=== PATIENT | male | born 1960 | race Caucasian/White ===

== ENCOUNTER 2017-01-07 10:35 | Inpatient (IN) | payer BC ==
[~2017-01-07 10:35] MED LIST: Lactated Ringers 1,000 ML IV SCH; Lidocaine 1%/Sod Bicarbonate in NS 8.4% 1 ML Syringe IV PRN; Sodium Chloride 0.9% 10 ML Syringe FLUSH PRN
[2017-01-07] MEDS ORDERED: fentaNYL 100 MCG/2 ML SDV ONE (11:06)
[2017-01-07] MEDS ORDERED: Propofol 200 MG/20 ML SDV ONE ×3 (11:06→14:22)
[2017-01-07] MEDS ORDERED: Midazolam 1 MG/ML 2 ML SDV ONE (11:06)
--- NOTE | 2017-01-07 11:56 | PCM.PREANE ---
Preanesthetic Assessment - Anesthesia/Transfusion/Family Hx Anesthesia History: Prior Anesthesia Without Reaction Family History of Anesthesia Reaction: No Transfusion History: No Prior Transfusion(s) Intubation History: Unknown - Review of Systems General: No Symptoms Pulmonary: No Symptoms Cardiovascular: No Symptoms Gastrointestinal: No symptoms Neurological: No Symptoms Other: Reports: None - Physical Assessment NPO Status Date: 01/07/17 NPO Status Time: 01:30 O2 Sat by Pulse Oximetry: 96 Respiratory Rate: 16 Vital Signs: Last Vital Signs Temp 36.8 C 01/07/17 11:05 Pulse 70 01/07/17 11:05 Resp 16 01/07/17 11:05 BP 131/77 01/07/17 11:05 Pulse Ox 96 01/07/17 11:05 Height: 1.73 m Weight: 72.121 kg ASA Class: 2 Mental Status: Alert & Oriented x3 Airway Class: Mallampati = 1 Dentition: Reports: Edentulous Thyro-Mental Finger Breadths: 3 Mouth Opening Finger Breadths: 5 ROM/Head Extension: Full Lungs: Clear to auscultation, Normal respiratory effort Cardiovascular: Regular Rate, Regular Rhythm - Lab Values: Laboratory Last Values MRSA (PCR) Negative 12/26/16 16:48 labs reviewed - Imaging/EKG Impressions: reviewed echo - EF: 55% and stress test negative - Allergies Allergies/Adverse Reactions: Allergies Allergy/AdvReac Type Severity Reaction Status Date / Time No Known Allergies Allergy Verified 01/07/17 11:44 - Blood Blood Available: No - Anesthesia Plan Pre-Op Medication Ordered: None - Acknowledgements Anesthesia Type Planned: Spinal Pt an Appropriate Candidate for the Planned Anesthesia: Yes Alternatives and Risks of Anesthesia Discussed w Pt/Guardian: Yes Pt/Guardian Understands and Agrees with Anesthesia Plan: Yes PreAnesthesia Questionnaire HEENT History: Reports: Other (see below) Other HEENT History: jaw surgery Other Genitourinary History: hematuria Psychiatric History: Reports: None (ETOH abuse), Other (see below) Other Psychiatric History: history of alcohol abuse - Past Surgical History Other Head Surgeries/Procedures: left jaw surgery Musculoskeletal Surgical History: Reports: Other (see below) (Left knee surgery) Other Musculoskeletal Surgeries/Procedures:: left knee surgery - SUBSTANCE USE Smoking Status *Q: Current Every Day Smoker (1/2 pack a day) Tobacco Use Within Last Twelve Months: Cigarettes Recreational Drug Use History: No Other Recreational Drug Type: quit drinking ETOH 4.5 years ago - HOME MEDS Home Medications: Home Meds Acetaminophen [Tylenol] 650 mg PO Q4HR PRN 10/03/16 [History] Hydrocodone/Acetaminophen [Ethel 5-325 Tablet] 1 - 2 each PO Q6H #40 tablet [Rx] Aspirin 325 mg PO BID #90 tablet 10/05/16 [Rx] Ibuprofen [Advil] 600 mg PO Q6H PRN 01/07/17 [History] - CURRENT (IN HOUSE) MEDS Current Meds: Current Medications Lactated Ringer's (Ringers, Lactated) 1,000 mls @ 125 mls/hr IV ASDIRECTED BR[facility]GER Lidocaine/Sodium Bicarbonate (Buffered Lidocaine 1% In Ns 8.4%) 0.25 ml IV ONETIME PRN PRN Reason: Prior to IV Start Stop: 01/07/17 18:00 Sodium Chloride (Saline Flush) 10 ml FLUSH ASDIRECTED PRN PRN Reason: Keep Vein Open Discontinued Medications Bupivacaine HCl (Marcaine 0.25%) Confirm Administered Dose 30 ml .ROUTE .STK- MED ONE Stop: 01/07/17 11:32 Cefazolin Sodium (Ancef) Confirm Administered Dose 2 gm .ROUTE .STK-MED ONE Stop: 01/07/17 11:32 Morphine Sulfate 8 mg/Epinephrine HCl 0.3 mg/Cefuroxime Sodium 750 mg/Ketorolac Tromethamine 30 mg/Sodium Chloride 27.9 ml 0 mg .XX ONETIME ONE Stop: 01/07/17 09:39 Fentanyl (Sublimaze) Confirm Administered Dose 100 mcg .ROUTE .STK-MED ONE Stop: 01/07/17 11:07 Iodine (Iodine 2% Mild Tincture) Confirm Administered Dose 30 ml .ROUTE .STK- MED ONE Stop: 01/07/17 11:32 Midazolam HCl (Versed 1 Mg/Ml) Confirm Administered Dose 2 mg .ROUTE .STK-MED ONE Stop: 01/07/17 11:07 Propofol (Diprivan 20 Ml) Confirm Administered Dose 600 mg .ROUTE .STK-MED ONE Stop: 01/07/17 11:07 Tranexamic Acid (Cyklokapron) Confirm Administered Dose 1,000 mg .ROUTE .STK- MED ONE Stop: 01/07/17 11:32 Preanesthetic Assessment - ANESTHESIA/TRANSFUSION/FAMILY HX Anesthesia/Transfusion History: No Prior Transfusion(s), Prior Anesthesia Family History of Anesthesia Reaction: No Intubation History: Unknown - PHYSICAL ASSESSMENT O2 Sat by Pulse Oximetry: 96 RR: 16 Vital Signs: Last Vital Signs Temp 36.8 C 01/07/17 11:05 Pulse 70 01/07/17 11:05 Resp 16 01/07/17 11:05 BP 131/77 01/07/17 11:05 Pulse Ox 96 01/07/17 11:05 Height: 1.73 m Weight: 72.121 kg NPO Status Date: 01/07/17 NPO Status Time: 01:30 - LAB Values: Laboratory Last Values MRSA (PCR) Negative 12/26/16 16:48 - ALLERGIES Allergies/Adverse Reactions: Allergies Allergy/AdvReac Type Severity Reaction Status Date / Time No Known Allergies Allergy Verified 01/07/17 11:44
[2017-01-07] MEDS ORDERED: Morphine PF 10 MG/10 ML SDV ONE (12:24)
[2017-01-07] MEDS ORDERED: fentaNYL 100 MCG/2 ML SDV IVPUSH PRN (13:10)
[2017-01-07] MEDS ORDERED: Ondansetron 4 MG/2 ML SDV IVPUSH PRN ×2 (13:10→15:14)
[2017-01-07] MEDS ORDERED: diphenhydrAMINE 50 MG/ML SDV IVPUSH PRN (13:10)
[2017-01-07] MEDS ORDERED: ePHEDrine/Normal Saline 25 MG/5 ML Syringe ONE ×2 (13:14→13:58)
[2017-01-07] MEDS ORDERED: Ondansetron 4 MG/2 ML SDV ONE (13:19)
[2017-01-07] MEDS: Iodine/Sodium Iodide 2% Tincture 30 ML Bottle ONE ×2 (13:33→14:16)
[2017-01-07] MEDS: Morphine 8 MG, EPINEPHrine 0.3 MG, Cefuroxime 750 MG, Ketorolac 30 MG, Sodium Chloride ... ONE ×15 (13:34→17:44)
[2017-01-07] MEDS: ceFAZolin 1 GM Vial ONE ×2 (13:34→14:21)
[2017-01-07] MEDS: Bupivacaine 0.25% 30 ML SDV ONE ×2 (13:35→14:27)
[2017-01-07] MEDS ORDERED: Meperidine PF 50 MG/ML Syringe IVPUSH PRN (14:15)
[2017-01-07] MEDS ORDERED: Magnesium Hydroxide 400 MG/5 ML Susp 30 ML Cup PO PRN (15:14)
[2017-01-07] MEDS ORDERED: Sennosides 8.6 MG Tab PO PRN (15:14)
[2017-01-07] MEDS ORDERED: Bisacodyl 5 MG Tab PO PRN (15:14)
--- NOTE | 2017-01-07 15:17 | PCM.POSTAN ---
POST ANESTHESIA ASSESSMENT - MENTAL STATUS Mental Status: alert - VITAL SIGNS Pulse Rate: 91 SaO2: 94 Resp Rate: 17 Blood Pressure: 119/79 Temperature: 36.4 C - RESPIRATORY Respiratory Status: respiratory rate WNL, airway patent, O2 saturation stable - CARDIOVASCULAR CV Status: pulse rate WNL, blood pressure stable - GASTROINTESTINAL GI Status: no symptoms - PAIN Pain Score: 0 - POST OP HYDRATION Hydration Status: adequate & stable
--- NOTE | 2017-01-07 15:44 | CR ---
Left knee: AP and lateral views of the left knee were obtained. Comparison: No previous knee exam. Knee prosthesis is seen. Components are aligned. Underlying bony structures are intact. Soft tissue air is noted from the surgical procedure. Impression: 1. Satisfactory radiographic appearance of recently placed left knee prosthesis. Diagnostic code #2
[2017-01-07] MEDS ORDERED: Naloxone 0.4 MG/ML SDV IVPUSH PRN (16:15)
--- NOTE | 2017-01-07 16:39 | PCM.CONS ---
H&P History of Present Illness - General Date of Service: 01/07/17 Admit Problem/Dx: Admission Diagnosis/Problem Admission Diagnosis/Problem Osteoarthritis of knee Source of Information: Patient, Family, Old records, Provider, RN notes reviewed History Limitations: Reports: Physical impairment - History of Present Illness Initial Comments - Free Text/Narative: This is a 56-year-old, white male, with past medical history of Nicotine Dependence and Hx/o ETOH Abuse who underwent left total knee arthroplasty post operative day zero. Patient is doing relatively well. Currently, his pain is controlled. He denies any acute issues. Hospitalist was consulted for postoperative care. Left Knee Pain Score (Numeric/FACES): 10 - Related Data Allergies/Adverse Reactions: Allergies Allergy/AdvReac Type Severity Reaction Status Date / Time No Known Allergies Allergy Verified 01/07/17 11:44 Home Medications: Home Meds Acetaminophen [Tylenol] 650 mg PO Q4HR PRN 10/03/16 [History] Hydrocodone/Acetaminophen [Centrah[place] 5-325 Tablet] 1 - 2 each PO Q6H #40 tablet [Rx] Aspirin 325 mg PO BID #90 tablet 10/05/16 [Rx] Ibuprofen [Advil] 600 mg PO Q6H PRN 01/07/17 [History] Past Medical History HEENT History: Reports: Other (see below) Other HEENT History: jaw surgery Genitourinary History: Reports: Other (see below) Other Genitourinary History: hematuria Psychiatric History: Reports: None (ETOH abuse), Other (see below) Other Psychiatric History: history of alcohol abuse - Past Surgical History Musculoskeletal Surgical History: Reports: Other (see below) (Left knee surgery) Other Musculoskeletal Surgeries/Procedures:: left knee surgery Social & Family History - Family History Family Medical History: Noncontributory - Tobacco Use Smoking Status *Q: Current Every Day Smoker (1/2 pack a day) Years of Tobacco use: 40 Packs/Tins Daily: 1 - Caffeine Use Caffeine Use: Reports: None - Recreational Drug Use Recreational Drug Use: No Drug Use in Last 12 Months: No H&P Review of Systems - Review of Systems: Review Of Systems: See Below General: Denies: fever, chills, malaise, weakness, fatigue HEENT: Reports: no symptoms Pulmonary: Denies: Shortness of Breath, Cough Cardiovascular: Denies: chest pain, palpitations, dyspnea on exertion Gastrointestinal: Denies: Abdominal pain, Nausea, Vomiting Genitourinary: Reports: no symptoms Musculoskeletal: Reports: no symptoms Skin: Denies: cyanosis, pallor, pruritis, rash, erythema Psychiatric: Denies: depression, anxiety, hallucinations Neurological: Reports: Difficulty Walking, Gait Disturbance. Denies: Confusion Hematologic/Lymphatic: Reports: no symptoms Immunologic: Reports: no symptoms Exam - Exam Exam: See Below - Vital Signs Vital Signs: Last Vital Signs Temp 36.4 C 01/07/17 15:49 Pulse 91 01/07/17 15:17 Resp 16 01/07/17 15:49 BP 107/69 01/07/17 15:49 Pulse Ox 94 L 01/07/17 15:49 Weight: 72.121 kg - Exam General: alert, oriented, cooperative. No: mild distress HEENT: Conjunctiva clear, EACs clear, EOMI, Hearing intact, Mucosa moist & pink , Nares patent, Normal nasal septum, Posterior pharynx clear, Pupils equal, Pupils reactive, TMs clear Neck: supple, trachea midline, 2+ carotid pulse wo bruit, full range of motion, JVD Lungs: Clear to auscultation, Normal respiratory effort Cardiovascular: regular rate, regular rhythm Abdomen: normal bowel sounds, soft. No: organomegaly (Male) Exam: Other (indwelling tierney catheter) Rectal (Males) Exam: Deferred Back Exam: normal inspection, decreased range of motion Extremities: normal inspection, normal pulses. No: clubbing, cyanosis, calf tenderness, edema Peripheral Pulses: 2+: posterior tibial (L), posterior tibial (R), dorsalis pedis (L), dorsalis pedis (R) Skin: warm, dry, intact Neuro Extensive - Mental Status: oriented x3, normal cognition, memory intact Neuro Extensive - Motor, Sensory, Reflexes: CN II-XII intact (exam limited but current status but fairly intact), abnormal gait Psychiatric: alert, normal affect, normal mood Consult PN Assessment/Plan POD#: 0 Procedures: Procedures ASSAY OF FERRITIN (12/12/16) ASSAY OF PREALBUMIN (12/12/16) ASSAY OF SERUM ALBUMIN (12/12/16) CARDIOVASCULAR STRESS TEST (09/10/16) CHEST X-RAY 2VW FRONTAL&LATL (08/21/16) COMPLETE CBC AUTOMATED (12/12/16) COMPREHEN METABOLIC PANEL (08/21/16) CT THORAX W/DYE (10/11/15) FLUOROSCOPE EXAMINATION (10/04/16) HT MUSCLE IMAGE SPECT MULT (09/10/16) METABOLIC PANEL TOTAL CA (12/12/16) MR-STAPH DNA AMP PROBE (10/04/16) PROTHROMBIN TIME (12/12/16) REMOVAL OF SUPPORT IMPLANT (10/04/16) ROUTINE VENIPUNCTURE (08/21/16) THROMBOPLASTIN TIME PARTIAL (12/12/16) TTE W/DOPPLER COMPLETE (09/10/16) URINALYSIS AUTO W/O SCOPE (08/21/16) URINALYSIS AUTO W/SCOPE (09/19/16) VITAMIN D 25 HYDROXY (12/12/16) Problem List Initiated/Reviewed/Updated: Yes Plan: Assessment: Acute: Post-Operative Care State - Stable - Continue to monitor for hemodynamic instability S/p Left Total Knee Arthroplasty - Stable - DVT and Pain Management as per primary team Hx/o Chronic OA - Pain Management as per primary team Chronic: Active Smoker Hx/o ETOH Abuse Plan: He is clinically stable Routine AM labs Continue home meds Offered Nicotine Patch-refused PT/OT consult IS q2 awake Thank you for the opportunity to participate in the management of this patient. Requesting Provider: Dr. May Date Consult Requested: 01/07/17 Reason for Consult: Post-Operative Care Patient History Reviewed: Yes Admission H&P Reviewed: Yes Consult Result/Summary: Stable
[2017-01-07] MEDS: ceFAZolin 2 GM in Premix Bag 1 BAG IV SCH (20:12)
[2017-01-07] MEDS: Famotidine 20 MG Tab PO SCH (20:14)
[2017-01-07] MEDS: Docusate Sodium 100 MG Cap PO SCH (20:14)
[2017-01-08] MEDS: Acetaminophen/oxyCODONE 325-5 MG Tab PO PRN ×4 (00:09→13:08)
[2017-01-08] MEDS: Cyclobenzaprine 10 MG Tab PO PRN ×2 (01:55→09:09)
[2017-01-08] MEDS: Morphine 2 MG/ML Syringe IVPUSH PRN ×2 (04:47→07:56)
[2017-01-08] MEDS: ceFAZolin 2 GM in Premix Bag 1 BAG IV SCH ×2 (04:51→11:40)
[2017-01-08] MEDS ORDERED: Multivitamins,Therapeutic Tab PO SCH (07:00)
--- NOTE | 2017-01-08 08:38 | PCM48HPAN ---
Post Anesthesia Note - EVALUATION WITHIN 48HRS OF ANESTHETIC Vital Signs in Normal Range: Yes Patient Participated in Evaluation: Yes Respiratory Function Stable: Yes Airway Patent: Yes Cardiovascular Function Stable: Yes Hydration Status Stable: Yes Pain Control Satisfactory: Yes Nausea and Vomiting Control Satisfactory: Yes Mental Status Recovered: Yes
[2017-01-08] MEDS ORDERED: Nicotine 21 MG/24 Hr Patch TRDERM SCH (09:00)
[2017-01-08] MEDS ORDERED: Rivaroxaban 10 MG Tab PO SCH (09:00)
[2017-01-08] MEDS ORDERED: Tamsulosin 0.4 MG Cap.ER PO SCH (09:00)
[2017-01-08] MEDS: Docusate Sodium 100 MG Cap PO SCH (09:06)
[2017-01-08] MEDS: Famotidine 20 MG Tab PO SCH (09:07)
--- NOTE | 2017-01-08 09:20 | PCM.CONSN ---
- General Info Date of Service: 01/08/17 Admission Dx/Problem (Free Text): Admission Diagnosis/Problem Admission Diagnosis/Problem Osteoarthritis of knee POD #[address] May Pain under fair control; slept "OK" last evening. Unable to void thus far this am. No nausea, SOB, CP, cough or other new concerns this morning. Functional Status: Reports: pain controlled, tolerating diet, ambulating. Denies: urinating (unable to void since dc of tierney this am), new symptoms - Review of Systems General: Reports: No Symptoms HEENT: Reports: no symptoms Pulmonary: Reports: no symptoms Cardiovascular: Reports: No Symptoms Gastrointestinal: Reports: No symptoms Genitourinary: Reports: retention Musculoskeletal: Reports: leg pain (lt knee) Skin: Reports: no symptoms Neurological: Reports: No Symptoms Psychiatric: Reports: no symptoms - Patient Data Vitals - most recent: Last Vital Signs Temp 98.6 F 01/08/17 08:10 Pulse 76 01/08/17 08:10 Resp 20 01/08/17 08:10 BP 100/46 L 01/08/17 08:10 Pulse Ox 92 L 01/08/17 08:10 Weight - most recent: 168 lb I&O - last 24 hours: Intake & Output 01/07/17 01/08/17 01/08/17 22:59 06:59 14:59 Intake Total 270 Output Total 200 700 Balance 70 -700 Lab Results last 24 hrs: Laboratory Results - last 24 hr 01/08/17 01/08/17 Range/Units 04:30 04:30 WBC 11.04 H (4.23-9.07) K/mm3 RBC 3.38 L (4.63-6.08) M/mm3 Hgb 10.1 L (13.7-17.5) gm/L Hct 30.5 L (40.1-51.0) % MCV 90.2 (79.0-92.2) fl MCH 29.9 (25.7-32.2) pg MCHC 33.1 (32.2-35.5) g/dl RDW Std Deviation 42.4 (35.1-43.9) fL Plt Count 228 (163-337) K/mm3 MPV 10.1 (9.4-12.3) fl Neut % (Auto) 70.6 H (34.0-67.9) % Lymph % (Auto) 15.5 L (21.8-53.1) % [place] % (Auto) 10.8 (5.3-12.2) % Eos % (Auto) 2.5 (0.8-7.0) Baso % (Auto) 0.2 (0.1-1.2) % Neut # 7.80 H (1.78-5.38) K/mm3 Lymph # 1.71 (1.32-3.57) K/mm3 [place] # 1.19 H (0.30-0.82) K/mm3 Eos # 0.28 (0.04-0.54) K/mm3 Baso # 0.02 (0.01-0.08) K/mm3 Sodium 134 L (136-145) mEq/L Potassium 4.2 (3.5-5.1) mEq/L Chloride 101 (98-107) mEq/L Carbon Dioxide 26 (21-32) mEq/L Anion Gap 11.2 (5-15) BUN 13 (7-18) mg/dL Creatinine 0.6 L (0.7-1.3) mg/dL Est Cr Clr Drug Dosing 129.83 mL/min Estimated GFR (MDRD) > 60 (>60) mL/min BUN/Creatinine Ratio 21.7 H (14-18) Glucose 95 (74-106) mg/dL Calcium 7.9 L (8.5-10.1) mg/dL Total Bilirubin 0.3 (0.2-1.0) mg/dL AST 15 (15-37) U/L ALT 23 (16-63) U/L Alkaline Phosphatase 68 (46-116) U/L Total Protein 5.7 L (6.4-8.2) g/dl Albumin 3.1 L (3.4-5.0) g/dl Globulin 2.6 gm/dL Albumin/Globulin Ratio 1.2 (1-2) Med Orders - Current: Current Medications Bisacodyl (Dulcolax) 5 mg PO DAILY PRN PRN Reason: Constipation Cyclobenzaprine HCl (Flexeril) 10 mg PO TID PRN PRN Reason: Spasms Last Admin: 01/08/17 09:09 Dose: 10 mg Docusate Sodium (Colace) 100 mg PO BID [facility] Last Admin: 01/08/17 09:06 Dose: 100 mg Famotidine (Pepcid) 20 mg PO Q12H [facility] Last Admin: 01/08/17 09:07 Dose: 20 mg Lactated Ringer's (Ringers, Lactated) 1,000 mls @ 125 mls/hr IV ASDIRECTED [facility] Last Admin: 01/07/17 20:13 Dose: 125 mls/hr Cefazolin Sodium/Dextrose 2 gm (/ Premix) 50 mls @ 100 mls/hr IV Q8H [facility] Stop: 01/08/17 11:59 Last Admin: 01/08/17 04:51 Dose: 100 mls/hr Magnesium Hydroxide (Milk Of Magnesia) 30 ml PO BID PRN PRN Reason: Constipation Meperidine HCl (Demerol) 12.5 mg IVPUSH ONETIME PRN PRN Reason: shivering Stop: 01/08/17 14:16 Miscellaneous Information (Remove Patch) 0 ea TRDERM DAILY [facility] Morphine Sulfate (Morphine) 2 mg IVPUSH Q2H PRN PRN Reason: Breakthrough Pain Last Admin: 01/08/17 07:56 Dose: 2 mg Multivitamins (Thera) 1 each PO WITHBREAKFAST [facility] Last Admin: 01/08/17 06:48 Dose: 1 each Nicotine (Habitrol) 21 mg TRDERM DAILY [facility] Last Admin: 01/08/17 09:06 Dose: 21 mg Ondansetron HCl (Zofran) 4 mg IVPUSH Q6H PRN PRN Reason: Nausea/Vomiting Oxycodone/Acetaminophen (Percocet 325-5 Mg) 1 - 2 tab PO Q4H PRN PRN Reason: Pain Last Admin: 01/08/17 09:10 Dose: 2 tab Rivaroxaban (Xarelto) 10 mg PO DAILY [facility] Last Admin: 01/08/17 09:08 Dose: 10 mg Senna (Senna) 8.6 mg PO BID PRN PRN Reason: Constipation Sodium Chloride (Saline Flush) 10 ml FLUSH ASDIRECTED PRN PRN Reason: Keep Vein Open Tamsulosin [facility]) [facility] Last Admin: 01/08/17 09:09 Dose: 0.4 mg Discontinued Medications Bupivacaine HCl (Marcaine 0.25%) Confirm Administered Dose 30 ml .ROUTE .STK- MED ONE Stop: 01/07/17 11:32 Last Admin: 01/07/17 14:27 Dose: 30 ml Cefazolin Sodium (Ancef) Confirm Administered Dose 2 gm .ROUTE .STK-MED ONE Stop: 01/07/17 11:32 Last Admin: 01/07/17 14:21 Dose: 2 gm Morphine Sulfate 8 mg/Epinephrine HCl 0.3 mg/Cefuroxime Sodium 750 mg/Ketorolac Tromethamine 30 mg/Sodium Chloride 27.9 ml 0 mg .XX ONETIME ONE Stop: 01/07/17 09:39 Last Admin: 01/07/17 17:44 Dose: Not Given Diphenhydramine HCl (Benadryl) 25 mg IVPUSH Q6H PRN PRN Reason: pruritis Stop: 01/07/17 18:00 Ephedrine Sulfate (Ephedrine In Ns) Confirm Administered Dose 25 mg .ROUTE .STK- MED ONE Stop: 01/07/17 13:15 Ephedrine Sulfate (Ephedrine In Ns) Confirm Administered Dose 25 mg .ROUTE .STK- MED ONE Stop: 01/07/17 13:59 Fentanyl (Sublimaze) Confirm Administered Dose 100 mcg .ROUTE .STK-MED ONE Stop: 01/07/17 11:07 Fentanyl (Sublimaze) 50 mcg IVPUSH Q5M PRN PRN Reason: Pain Stop: 01/07/17 18:00 Iodine (Iodine 2% Mild Tincture) Confirm Administered Dose 30 ml .ROUTE .STK- MED ONE Stop: 01/07/17 11:32 Last Admin: 01/07/17 14:16 Dose: 18 ml Lidocaine/Sodium Bicarbonate (Buffered Lidocaine 1% In Ns 8.4%) 0.25 ml IV ONETIME PRN PRN Reason: Prior to IV Start Stop: 01/07/17 18:00 Midazolam HCl (Versed 1 Mg/Ml) Confirm Administered Dose 2 mg .ROUTE .STK-MED ONE Stop: 01/07/17 11:07 Morphine Sulfate (Duramorph Pf) Confirm Administered Dose 10 mg .ROUTE .STK-MED ONE Stop: 01/07/17 12:25 Naloxone HCl (Narcan) 0.1 mg IVPUSH Q5M PRN PRN Reason: Oversedation Stop: 01/07/17 16:31 Ondansetron HCl (Zofran) Confirm Administered Dose 4 mg .ROUTE .STK-MED ONE Stop: 01/07/17 13:20 Ondansetron HCl (Zofran) 4 mg IVPUSH ONETIME PRN PRN Reason: Nausea/Vomiting Stop: 01/07/17 18:00 Propofol (Diprivan 20 Ml) Confirm Administered Dose 600 mg .ROUTE .STK-MED ONE Stop: 01/07/17 11:07 Propofol (Diprivan 20 Ml) Confirm Administered Dose 200 mg .ROUTE .STK-MED ONE Stop: 01/07/17 14:23 Propofol (Diprivan 20 Ml) Confirm Administered Dose 200 mg .ROUTE .STK-MED ONE Stop: 01/07/17 14:23 Tranexamic Acid (Cyklokapron) Confirm Administered Dose 1,000 mg .ROUTE .STK- MED ONE Stop: 01/07/17 11:32 Last Admin: 01/07/17 14:35 Dose: 1,000 mg - Exam Quality Assessment: DVT prophylaxis General: alert, oriented, cooperative, no acute distress HEENT: Pupils equal, Pupils reactive, EOMI, Mucous membr. moist/pink Neck: supple Lungs: Clear to auscultation, Normal respiratory effort Cardiovascular: Regular Rate, Regular Rhythm, Tachycardia Abdomen: bowel sounds present, no tenderness, no distension (Male) Exam: Deferred Back Exam: normal inspection Extremities: no edema, no calf tenderness, other (ice to lt knee; araceli wrap; SCD' s bilat) Peripheral Pulses: 1+: dorsalis pedis (L), dorsalis pedis (R) Skin: warm, dry Neurological: no new focal deficit Psy/Mental Status: alert, normal affect, normal mood Consult PN Assessment/Plan POD#: 1 Procedures: Procedures ASSAY OF FERRITIN (12/12/16) ASSAY OF PREALBUMIN (12/12/16) ASSAY OF SERUM ALBUMIN (12/12/16) CARDIOVASCULAR STRESS TEST (09/10/16) CHEST X-RAY 2VW FRONTAL&LATL (08/21/16) COMPLETE CBC AUTOMATED (12/12/16) COMPREHEN METABOLIC PANEL (08/21/16) CT THORAX W/DYE (10/11/15) FLUOROSCOPE EXAMINATION (10/04/16) HT MUSCLE IMAGE SPECT MULT (09/10/16) METABOLIC PANEL TOTAL CA (12/12/16) MR-STAPH DNA AMP PROBE (10/04/16) PROTHROMBIN TIME (12/12/16) REMOVAL OF SUPPORT IMPLANT (10/04/16) ROUTINE VENIPUNCTURE (08/21/16) THROMBOPLASTIN TIME PARTIAL (12/12/16) TTE W/DOPPLER COMPLETE (09/10/16) URINALYSIS AUTO W/O SCOPE (08/21/16) URINALYSIS AUTO W/SCOPE (09/19/16) VITAMIN D 25 HYDROXY (12/12/16) (1) S/P total knee arthroplasty SNOMED Code(s): 7205088580380, 776487104, 7838325151744 Code(s): Z96.659 - PRESENCE OF UNSPECIFIED ARTIFICIAL KNEE JOINT Priority: High Current Visit: Yes Qualifiers: Laterality: left Qualified Code(s): Z96.652 - Presence of left artificial knee joint (2) Osteoarthritis SNOMED Code(s): 066448108 Code(s): M19.90 - UNSPECIFIED OSTEOARTHRITIS, UNSPECIFIED SITE Priority: High Current Visit: Yes Qualifiers: Osteoarthritis location: knee Osteoarthritis type: primary Laterality: left Qualified Code(s): M17.12 - Unilateral primary osteoarthritis, left knee (3) Urinary retention SNOMED Code(s): 760270883 Code(s): R33.9 - RETENTION OF URINE, UNSPECIFIED Priority: High Current Visit: Yes (4) Tobacco use disorder SNOMED Code(s): 093296393, 950884953 Code(s): F17.200 - NICOTINE DEPENDENCE, UNSPECIFIED, UNCOMPLICATED Priority : High Current Visit: Yes Problem List Initiated/Reviewed/Updated: Yes My Orders last 24 hours: My Active Orders 01/08/17 09:00 Tamsulosin [Flomax] 0.4 mg PO BIDPC Plan: Assessment/Plan POD #[address] May -Pain managment and DVT prophylax per primary team/Ortho -Doing well -VSS -Labs stable; hgb 10.1 Postoperative urinary retention -Push fluids -Flomax BID -Cont to monitor -Straight cath PRN per bladder scanning protocol- if needed will DC with [facility]ney cath and f/up with PCP within 2-3 days for recheck Chronic conditions: Tobacco use disorder: nicotine patch Hx of alcohol use >5 years ago- no recent use Other: PT/OT CM/SW for assistance with DC planning OK for dc home today from hospitalist standpoint if ok with PT and Ortho--- as above for urinary retention plan Full Code Status
[2017-01-08 12:04] VITALS: BP 132/71
--- NOTE | 2017-01-08 13:09 | PCM.SURGPN ---
- General Info Date of Service: 01/08/17 POD#: 1 Functional Status: Reports: pain controlled, tolerating diet, ambulating, other. Denies: new symptoms - Review of Systems Musculoskeletal: Reports: other (The pt reports his pain has been controlled.) - Patient Data Vitals - most recent: Last Vital Signs Temp 98.2 F 01/08/17 11:36 Pulse 76 01/08/17 11:36 Resp 18 01/08/17 11:36 BP 132/71 01/08/17 11:36 Pulse Ox 95 01/08/17 11:36 Weight - most recent: 168 lb I&O - last 24 hours: Intake & Output 01/07/17 01/08/17 01/08/17 22:59 06:59 14:59 Intake Total 270 780 Output Total 200 700 525 Balance 70 -700 255 Lab Results last 24 hrs: Laboratory Results - last 24 hr 01/08/17 01/08/17 Range/Units 04:30 04:30 WBC 11.04 H (4.23-9.07) K/mm3 RBC 3.38 L (4.63-6.08) M/mm3 Hgb 10.1 L (13.7-17.5) gm/L Hct 30.5 L (40.1-51.0) % MCV 90.2 (79.0-92.2) fl MCH 29.9 (25.7-32.2) pg MCHC 33.1 (32.2-35.5) g/dl RDW Std Deviation 42.4 (35.1-43.9) fL Plt Count 228 (163-337) K/mm3 MPV 10.1 (9.4-12.3) fl Neut % (Auto) 70.6 H (34.0-67.9) % Lymph % (Auto) 15.5 L (21.8-53.1) % [place] % (Auto) 10.8 (5.3-12.2) % Eos % (Auto) 2.5 (0.8-7.0) Baso % (Auto) 0.2 (0.1-1.2) % Neut # 7.80 H (1.78-5.38) K/mm3 Lymph # 1.71 (1.32-3.57) K/mm3 [place] # 1.19 H (0.30-0.82) K/mm3 Eos # 0.28 (0.04-0.54) K/mm3 Baso # 0.02 (0.01-0.08) K/mm3 Sodium 134 L (136-145) mEq/L Potassium 4.2 (3.5-5.1) mEq/L Chloride 101 (98-107) mEq/L Carbon Dioxide 26 (21-32) mEq/L Anion Gap 11.2 (5-15) BUN 13 (7-18) mg/dL Creatinine 0.6 L (0.7-1.3) mg/dL Est Cr Clr Drug Dosing 129.83 mL/min Estimated GFR (MDRD) > 60 (>60) mL/min BUN/Creatinine Ratio 21.7 H (14-18) Glucose 95 (74-106) mg/dL Calcium 7.9 L (8.5-10.1) mg/dL Total Bilirubin 0.3 (0.2-1.0) mg/dL AST 15 (15-37) U/L ALT 23 (16-63) U/L Alkaline Phosphatase 68 (46-116) U/L Total Protein 5.7 L (6.4-8.2) g/dl Albumin 3.1 L (3.4-5.0) g/dl Globulin 2.6 gm/dL Albumin/Globulin Ratio 1.2 (1-2) Med Orders - Current: Current Medications Bisacodyl (Dulcolax) 5 mg PO DAILY PRN PRN Reason: Constipation Cyclobenzaprine HCl (Flexeril) 10 mg PO TID PRN PRN Reason: Spasms Last Admin: 01/08/17 09:09 Dose: 10 mg Docusate Sodium (Colace) 100 mg PO BID [facility] Last Admin: 01/08/17 09:06 Dose: 100 mg Famotidine (Pepcid) 20 mg PO Q12H [facility] Last Admin: 01/08/17 09:07 Dose: 20 mg Lactated Ringer's (Ringers, Lactated) 1,000 mls @ 125 mls/hr IV ASDIRECTED [facility] Last Admin: 01/07/17 20:13 Dose: 125 mls/hr Magnesium Hydroxide (Milk Of Magnesia) 30 ml PO BID PRN PRN Reason: Constipation Miscellaneous Information (Remove Patch) 0 ea TRDERM DAILY [facility] Morphine Sulfate (Morphine) 2 mg IVPUSH Q2H PRN PRN Reason: Breakthrough Pain Last Admin: 01/08/17 07:56 Dose: 2 mg Multivitamins (Thera) [facility] Last Admin: 01/08/17 06:48 Dose: 1 each Nicotine (Habitrol) 21 mg TRDERM DAILY [facility] Last Admin: 01/08/17 09:06 Dose: 21 mg Ondansetron HCl (Zofran) 4 mg IVPUSH Q6H PRN PRN Reason: Nausea/Vomiting Oxycodone/Acetaminophen (Percocet 325-5 Mg) 1 - 2 tab PO Q4H PRN PRN Reason: Pain Last Admin: 01/08/17 09:10 Dose: 2 tab Rivaroxaban (Xarelto) 10 mg PO DAILY [facility] Last Admin: 01/08/17 09:08 Dose: 10 mg Senna (Senna) 8.6 mg PO BID PRN PRN Reason: Constipation Sodium Chloride (Saline Flush) 10 ml FLUSH ASDIRECTED PRN PRN Reason: Keep Vein Open Tamsulosin [facility] (Flomax) [facility] Last Admin: 01/08/17 09:09 Dose: 0.4 mg Discontinued Medications Bupivacaine HCl (Marcaine 0.25%) Confirm Administered Dose 30 ml .ROUTE .STK- MED ONE Stop: 01/07/17 11:32 Last Admin: 01/07/17 14:27 Dose: 30 ml Cefazolin Sodium (Ancef) Confirm Administered Dose 2 gm .ROUTE .STK-MED ONE Stop: 01/07/17 11:32 Last Admin: 01/07/17 14:21 Dose: 2 gm Morphine Sulfate 8 mg/Epinephrine HCl 0.3 mg/Cefuroxime Sodium 750 mg/Ketorolac Tromethamine 30 mg/Sodium Chloride 27.9 ml 0 mg .XX ONETIME ONE Stop: 01/07/17 09:39 Last Admin: 01/07/17 17:44 Dose: Not Given Diphenhydramine HCl (Benadryl) 25 mg IVPUSH Q6H PRN PRN Reason: pruritis Stop: 01/07/17 18:00 Ephedrine Sulfate (Ephedrine In Ns) Confirm Administered Dose 25 mg .ROUTE .STK- MED ONE Stop: 01/07/17 13:15 Ephedrine Sulfate (Ephedrine In Ns) Confirm Administered Dose 25 mg .ROUTE .STK- MED ONE Stop: 01/07/17 13:59 Fentanyl (Sublimaze) Confirm Administered Dose 100 mcg .ROUTE .STK-MED ONE Stop: 01/07/17 11:07 Fentanyl (Sublimaze) 50 mcg IVPUSH Q5M PRN PRN Reason: Pain Stop: 01/07/17 18:00 Cefazolin Sodium/Dextrose 2 gm (/ Premix) 50 mls @ 100 mls/hr IV Q8H [facility] Stop: 01/08/17 11:59 Last Admin: 01/08/17 11:40 Dose: 100 mls/hr Iodine (Iodine 2% Mild Tincture) Confirm Administered Dose 30 ml .ROUTE .STK- MED ONE Stop: 01/07/17 11:32 Last Admin: 01/07/17 14:16 Dose: 18 ml Lidocaine/Sodium Bicarbonate (Buffered Lidocaine 1% In Ns 8.4%) 0.25 ml IV ONETIME PRN PRN Reason: Prior to IV Start Stop: 01/07/17 18:00 Meperidine HCl (Demerol) 12.5 mg IVPUSH ONETIME PRN PRN Reason: shivering Stop: 01/08/17 14:16 Midazolam HCl (Versed 1 Mg/Ml) Confirm Administered Dose 2 mg .ROUTE .STK-MED ONE Stop: 01/07/17 11:07 Morphine Sulfate (Duramorph Pf) Confirm Administered Dose 10 mg .ROUTE .STK-MED ONE Stop: 01/07/17 12:25 Naloxone HCl (Narcan) 0.1 mg IVPUSH Q5M PRN PRN Reason: Oversedation Stop: 01/07/17 16:31 Ondansetron HCl (Zofran) Confirm Administered Dose 4 mg .ROUTE .STK-MED ONE Stop: 01/07/17 13:20 Ondansetron HCl (Zofran) 4 mg IVPUSH ONETIME PRN PRN Reason: Nausea/Vomiting Stop: 01/07/17 18:00 Propofol (Diprivan 20 Ml) Confirm Administered Dose 600 mg .ROUTE .STK-MED ONE Stop: 01/07/17 11:07 Propofol (Diprivan 20 Ml) Confirm Administered Dose 200 mg .ROUTE .STK-MED ONE Stop: 01/07/17 14:23 Propofol (Diprivan 20 Ml) Confirm Administered Dose 200 mg .ROUTE .STK-MED ONE Stop: 01/07/17 14:23 Tranexamic Acid (Cyklokapron) Confirm Administered Dose 1,000 mg .ROUTE .STK- MED ONE Stop: 01/07/17 11:32 Last Admin: 01/07/17 14:35 Dose: 1,000 mg - Exam Wound/Incisions: dressing dry and intact General: alert, cooperative, no acute distress Lungs: Normal respiratory effort Extremities: normal pulses, no calf tenderness, other (Moderate soft tissue swelling left knee. NVS intact. Debbie's negative.) - Problem List Review Problem List Initiated/Reviewed/Updated: Yes - My Orders Last 24 Hours: Active Orders 24 hr Category Date Time Status Patient Status [ADT] Routine ADT 01/07/17 15:14 Active Ambulate [RC] PER UNIT ROUTINE Care 01/07/17 15:14 Active Antiembolic Devices [RC] .Routine Care 01/07/17 15:16 Active Antiembolic Devices [RC] PER UNIT ROUTINE Care 01/07/17 15:16 Active Communication Order [RC] ASDIRECTED Care 01/07/17 13:10 Active May Shower [RC] ASDIRECTED Care 01/07/17 15:14 Active Notify Provider Consults [RC] ASDIRECTED Care 01/07/17 15:18 Active Notify Provider [RC] ASDIRECTED Care 01/07/17 13:10 Active RT Incentive Spirometry [RC] Q1HWA Care 01/07/17 15:15 Active Up to Chair [RC] ASDIRECTED Care 01/07/17 15:14 Active Urinary Catheter Assessment [RC] 04,12,20 Care 01/07/17 13:26 Active VTE/DVT Education [RC] PER UNIT ROUTINE Care 01/07/17 15:16 Active Vital Signs [RC] 00,04,08,12,16,20 Care 01/07/17 15:14 Active Consult to Case Management [CONS] Routine Cons 01/07/17 15:14 Active Consult to Physician [CONS] Routine Cons 01/07/17 15:14 Active OT Evaluation and Treatment [CONS] Routine Cons 01/07/17 15:14 Active PT Evaluation and Treatment [CONS] Routine Cons 01/07/17 15:17 Active Regular Diet [DIET] Diet 01/07/17 Dinner Active Acetaminophen/oxyCODONE [Percocet 325-5 MG] Med 01/07/17 15:14 Active 1 - 2 tab PO Q4H PRN Bisacodyl [Dulcolax] Med 01/07/17 15:14 Active 5 mg PO DAILY PRN Cyclobenzaprine [Flexeril] Med 01/07/17 15:14 Active 10 mg PO TID PRN Docusate Sodium [Colace] Med 01/07/17 21:00 Active 100 mg PO BID Famotidine [Pepcid] Med 01/07/17 21:00 Active 20 mg PO Q12H Magnesium Hydroxide [Milk of Magnesia] Med 01/07/17 15:14 Active 30 ml PO BID PRN Morphine Med 01/07/17 15:14 Active 2 mg IVPUSH Q2H PRN Multivitamins,Therapeutic [Thera] Med 01/08/17 07:00 Active 1 each PO WITHBREAKFAST Nicotine [Habitrol] Med 01/08/17 09:00 Active 21 mg TRDERM DAILY Ondansetron [Zofran] Med 01/07/17 15:14 Active 4 mg IVPUSH Q6H PRN Remove Patch Med 01/09/17 09:00 Active 0 ea TRDERM DAILY Rivaroxaban [Xarelto] Med 01/08/17 09:00 Active 10 mg PO DAILY Sennosides [Senna] Med 01/07/17 15:14 Active 8.6 mg PO BID PRN Tamsulosin [Flomax] Med 01/08/17 09:00 Active 0.4 mg PO BIDPC Antiembolic Hose [OM.PC] Per Unit Routine Oth 01/07/17 15:16 Ordered DVT/VTE Prophylaxis Reflex [OM.PC] Routine Oth 01/07/17 15:14 Ordered Ice Therapy [OM.PC] Per Unit Routine Oth 01/07/17 15:15 Ordered Pulse Oximetry Continuous Monitoring [OM.PC] Routine Oth 01/07/17 13:10 Active Sequential Compression Device [OM.PC] Per Unit Routine Oth 01/07/17 15:18 Ordered Resuscitation Status Routine Resus Stat 01/07/17 15:14 Ordered Medication Orders Bisacodyl (Dulcolax) 5 mg PO DAILY PRN PRN Reason: Constipation Cyclobenzaprine HCl (Flexeril) 10 mg PO TID PRN PRN Reason: Spasms Last Admin: 01/08/17 09:09 Dose: 10 mg Admin: 01/08/17 01:55 Dose: 10 mg Docusate Sodium (Colace) 100 mg PO BID [facility] Last Admin: 01/08/17 09:06 Dose: 100 mg Admin: 01/07/17 20:14 Dose: 100 mg Famotidine (Pepcid) 20 mg PO Q12H [facility] Last Admin: 01/08/17 09:07 Dose: 20 mg Admin: 01/07/17 20:14 Dose: 20 mg Lactated Ringer's (Ringers, Lactated) 1,000 mls @ 125 mls/hr IV ASDIRECTED [facility] Last Admin: 01/07/17 20:13 Dose: 125 mls/hr Magnesium Hydroxide (Milk Of Magnesia) 30 ml PO BID PRN PRN Reason: Constipation Miscellaneous Information (Remove Patch) 0 ea TRDERM DAILY [facility] Morphine Sulfate (Morphine) 2 mg IVPUSH Q2H PRN PRN Reason: Breakthrough Pain Last Admin: 01/08/17 07:56 Dose: 2 mg Admin: 01/08/17 04:47 Dose: 2 mg Multivitamins (Thera) 1 each PO WITHBREAKFAST [facility] Last Admin: 01/08/17 06:48 Dose: 1 each Nicotine (Habitrol) 21 mg TRDERM DAILY [facility] Last Admin: 01/08/17 09:06 Dose: 21 mg Ondansetron HCl (Zofran) 4 mg IVPUSH Q6H PRN PRN Reason: Nausea/Vomiting Oxycodone/Acetaminophen (Percocet 325-5 Mg) 1 - 2 tab PO Q4H PRN PRN Reason: Pain Last Admin: 01/08/17 09:10 Dose: 2 tab Admin: 01/08/17 04:39 Dose: 2 tab Admin: 01/08/17 00:09 Dose: 2 tab Rivaroxaban (Xarelto) 10 mg PO DAILY [facility] Last Admin: 01/08/17 09:08 Dose: 10 mg Senna (Senna) 8.6 mg PO BID PRN PRN Reason: Constipation Sodium Chloride (Saline Flush) 10 ml FLUSH ASDIRECTED PRN PRN Reason: Keep Vein Open Tamsulosin HCl (Flomax) 0.4 mg PO BIDPC [facility] Last Admin: 01/08/17 09:09 Dose: 0.4 mg - Assessment Assessment (Free Text/Narrative):: POD#1 - left TKA - Plan Plan (Free Text/Narrative):: 1. Hgb 10.1. 2. Xarelto. TEDs. Frequent mobility. 3. Discharge to home today. The pt had hx urinary retention, however, has been able to void now. 4. Medical management per Hospitalist service. The pt's case was discussed with Dr. May.
--- NOTE | 2017-01-11 21:17 | PCM.OPNOTE ---
- General Post-Op/Procedure Note Date of Surgery/Procedure: 01/07/17 Operative Procedure(s): left total knee arthroplasty Pre Op Diagnosis: left knee osteoarthrosis Post-Op Diagnosis: Same Anesthesia Technique: Local, MAC, Spinal Primary Surgeon: Osmany May Anesthesia Provider: [place] Frozen Yogurt Maker: Christal Melendez Frozen Yogurt Maker: Leslie Ballesteros EBL in mLs: 500 Complications: None Condition: Good
--- NOTE | 2017-01-11 22:26 | OR ---
DATE OF OPERATION: 01/08/2017 SURGEON: Osmany May MD OPERATION PERFORMED: Left total knee arthroplasty. PREOPERATIVE DIAGNOSIS: Left knee osteoarthrosis. POSTOPERATIVE DIAGNOSIS: Left knee osteoarthrosis. ANESTHESIA: Local MAC with spinal. ANESTHESIA PROVIDER: Cali Gentile. FERRYBOAT OPERATOR: Christal Melendez PA-C, and Leslie Ballesteros LPN. ESTIMATED BLOOD LOSS: 500 mL. COMPLICATIONS: None. CONDITION: Stable. IMPLANTS: 1. Marciano size 6 PS femur. 2. Marciano size 5 [place] tibial baseplate. 3. Marciano 50 mm tibial stem. 4. [place] size 11 mm PS size 5 X3 polyethylene. DESCRIPTION OF PROCEDURE: The patient was identified in the preop holding area. Proper site was marked and identified the surgeon. The patient was taken back to the operating theater where after adequate anesthesia, patient's left lower extremity had a nonsterile tourniquet applied and was then sterilely prepped and draped in the sterile fashion. OR time-out was performed. Patient received 2 g IV Ancef at this time. The left lower extremity was exsanguinated. Tourniquet was insufflated to 300 mmHg. Standard medial parapatellar incision was created, medial parapatellar arthrotomy was undertaken at this time. Care was taken to hug close to the VMO as the patient has had a previous patellectomy and therefore as much soft-tissue that could have remained of the extensor mechanism was left intact. At this time, attention was turned to the distal femur. Drill hole was then drilled and the intramedullary distal femoral cutting guide was then placed. The 10 mm was then resected off the distal femur as the patient had significant wear and was found to be in adequate resection. The patient was noted to have soft bone at this time. At this time, sizing guide was placed and found to be a size 6 femur. Epicondylar axis holes were then drilled using [place] line and epicondyles as reference. A 4-in-1 cutting block was then placed anterior posterior and anterior and posterior chamfer cuts were then completed and found to be adequate. At this time, box cut was then placed and the box cut was then completed. The patient was again noted to have significantly soft bone on the femur. At this time, attention was turned to the tibia. Posterior medial fractures were placed. The extramedullary tibial cutting guide was then placed at the old footprint of the ACL. Alignment was set for the patient to be in just laid varus as otherwise there probably a mismatch secondary to the patient's significant deformity and flexion contracture. At this time, 2 mm was measured off the affected medial side as he had significant deficit on the medial side. [place] was set for roughly 0 degrees at this time. This was pinned into place and the tibial cut was then completed and was found to be adequate. All bony osteophytes were then removed posteriorly as well as medial lateral meniscus. Size 5 baseplate was found to have adequate coverage, this was stamped and drilled in proper rotation. The patient with 11 mm trial spacer had full flexion and extension and was stable to varus and valgus stress. The patient was again noted to have significant soft bone in the tibia at this time. Since he had previous surgery of proximal tibia, it was decided that we would do a 50 mm stem on the tibia as well. This was then drilled as well. All trial implants were then removed. All cut surfaces irrigated, pulse lavage irrigation with Ancef. Cement was mixed on the back table. All cut surfaces were then completely dried. The size 5 [place] tibial baseplate with 15 mm stem was then cemented in place, size 6 PS femur cemented into place and 11 mm TS X3 polyethylene was then placed along with the PEG for the TS component. At this time, patient's knee was brought into full extension. All excess cement was removed and the tourniquet was deflated. One liter Betadine solution was irrigated through the knee along with 3 L of pulse lavage irrigation with Ancef. At this time, all bleeders were cauterized. All excess cement was removed. A #2 barbed suture was used for closure of the medial parapatellar arthrotomy. Topical tranexamic acid was placed, 2-0 Vicryl was used subcutaneously and a running 3-0 Monocryl along with Prineo was used for the skin. The patient tolerated the procedure well and sent to PACU in stable condition. MMBIANCA /[id number]
--- NOTE | 2017-01-15 13:14 | PCM.DCSUM1 ---
Discharge Summary - Hospital Course Brief History: Rikki is a 56 yo male who underwent left TKA with Dr. May on 01-07. The procedure was completed under spinal anesthesia. The pt tolerated the procedure well and was admitted to the [facility] under Medical-Surgical status. Medical management was provided by the Hospitalist service. The pt's Hospital course was remarkable for urninary retention which resolved prior to discharge. The pt's Hgb on POD#1 was 10.1. On POD#1, Xarelto was initiated for VTE prophylaxis. A Mepilex dressing was placed at the incision site at the time of surgery and remained clean and dry. The pt participated in P.T. and O.T. and progressed well. The pt was allowed to WBAT. On POD#1, the pt was deemed appropriate to discharge to home with his . - Discharge Data Discharge Date: 01/08/17 Discharge Disposition: Home, Self-Care 01 Condition: Good - Patient Summary/Data Operative Procedure(s) Performed: left total knee arthroplasty Consults: Consultations 01/07/17 15:14 Consult to Case Management [CONS] Routine Consult to Physician [CONS] Routine OT Evaluation and Treatment [CONS] Routine 01/07/17 15:17 PT Evaluation and Treatment [CONS] Routine - Patient Instructions Diet: Usual Diet as Tolerated Activity: Apply Ice, As Tolerated, Elevate Extremity, Full Weight Bearing Driving: Do Not Drive Showering/Bathing: May Shower Wound/Incision Care: Keep Operative Site/Wound Site Clean and Dry, Do NOT Change Dressing Notify Provider of: Fever, Increased Pain, Swelling and Redness, Drainage, Nausea and/or Vomiting Other/Special Instructions: Please get up and moving around EVERY HOUR while awake. This helps to prevent blood clots. Please use your walker and have help with mobility as needed. Take the blood thinner medication - Xarelto - daily. Do the exercises you were taught in the Hospital. Schedule for P.T. Use the pain medication as needed. The medication may cause drowsiness and constipation. Contact your primary care provider for instructions if you are constipated. You may use a stool softener like docusate sodium or Colace 100mg twice daily and/or a laxative like Miralax daily for constipation. Use the ice machine often. Place a towel between the blue pad and your skin. Elevate the limb to decrease swelling. Keep the Mepilex dressing in place until follow-up at the Clinic. Notify the Clinic if the dressing is saturated. Wear the SHILPA hose during the day and you may remove these at night. Schedule an appointment with your primary care provider for 'routine post-op care'. Call the Clinic with questions or concerns - [phone]. - Discharge Plan Prescriptions/Med Rec: Acetaminophen/oxyCODONE [Percocet 325-5 MG] 1 - 2 tab PO Q4H PRN #60 tablet PRN Reason: Pain Cyclobenzaprine [Flexeril] 10 mg PO TID PRN #40 tablet PRN Reason: muscle spasms Rivaroxaban [Xarelto] 10 mg PO DAILY #13 tablet Tamsulosin [Flomax] 0.4 mg PO BIDPC #20 cap.er Home Medications: Home Meds Acetaminophen/oxyCODONE [Percocet 325-5 MG] 1 - 2 tab PO Q4H PRN #60 tablet [Rx] Cyclobenzaprine [Flexeril] 10 mg PO TID PRN #40 tablet 01/08/17 [Rx] Rivaroxaban [Xarelto] 10 mg PO DAILY #13 tablet 01/08/17 [Rx] Tamsulosin [Flomax] 0.4 mg PO BIDPC #20 cap.er 01/08/17 [Rx] Patient Handouts: Smoking Cessation, Tips for Success, [id number], Smoking Hazards, Rivaroxaban oral tablets, Total Knee Replacement, Care After, Easy-to- Read, Total Knee Replacement, [id number], Knee Rehabilitation Guidelines Following Surgery Referrals: Christal Melendez PA-C [Physician [employer] Supervisor] - - Patient Data Vitals - Most Recent: Last Vital Signs Temp 98.2 F 01/08/17 11:36 Pulse 76 01/08/17 11:36 Resp 18 01/08/17 11:36 BP 132/71 01/08/17 11:36 Pulse Ox 95 01/08/17 11:36 Weight - Most Recent: 168 lb Med Orders - Current: Current Medications Discontinued Medications Bisacodyl (Dulcolax) 5 mg PO DAILY PRN PRN Reason: Constipation Bupivacaine HCl (Marcaine 0.25%) Confirm Administered Dose 30 ml .ROUTE .STK- MED ONE Stop: 01/07/17 11:32 Last Admin: 01/07/17 14:27 Dose: 30 ml Cefazolin Sodium (Ancef) Confirm Administered Dose 2 gm .ROUTE .STK-MED ONE Stop: 01/07/17 11:32 Last Admin: 01/07/17 14:21 Dose: 2 gm Morphine Sulfate 8 mg/Epinephrine HCl 0.3 mg/Cefuroxime Sodium 750 mg/Ketorolac Tromethamine 30 mg/Sodium Chloride 27.9 ml 0 mg .XX ONETIME ONE Stop: 01/07/17 09:39 Last Admin: 01/07/17 17:44 Dose: Not Given Cyclobenzaprine HCl (Flexeril) 10 mg PO TID PRN PRN Reason: Spasms Last Admin: 01/08/17 09:09 Dose: 10 mg Diphenhydramine HCl (Benadryl) 25 mg IVPUSH Q6H PRN PRN Reason: pruritis Stop: 01/07/17 18:00 Docusate Sodium (Colace) 100 mg PO BID [facility] Last Admin: 01/08/17 09:06 Dose: 100 mg Ephedrine Sulfate (Ephedrine In Ns) Confirm Administered Dose 25 mg .ROUTE .STK- MED ONE Stop: 01/07/17 13:15 Ephedrine Sulfate (Ephedrine In Ns) Confirm Administered Dose 25 mg .ROUTE .STK- MED ONE Stop: 01/07/17 13:59 Famotidine (Pepcid) 20 mg PO Q12H [facility] Last Admin: 01/08/17 09:07 Dose: 20 mg Fentanyl (Sublimaze) Confirm Administered Dose 100 mcg .ROUTE .STK-MED ONE Stop: 01/07/17 11:07 Fentanyl (Sublimaze) 50 mcg IVPUSH Q5M PRN PRN Reason: Pain Stop: 01/07/17 18:00 Lactated Ringer's (Ringers, Lactated) 1,000 mls @ 125 mls/hr IV ASDIRECTED [facility] Last Admin: 01/07/17 20:13 Dose: 125 mls/hr Cefazolin Sodium/Dextrose 2 gm (/ Premix) 50 mls @ 100 mls/hr IV Q8H [facility] Stop: 01/08/17 11:59 Last Admin: 01/08/17 11:40 Dose: 100 mls/hr Iodine (Iodine 2% Mild Tincture) Confirm Administered Dose 30 ml .ROUTE .STK- MED ONE Stop: 01/07/17 11:32 Last Admin: 01/07/17 14:16 Dose: 18 ml Lidocaine/Sodium Bicarbonate (Buffered Lidocaine 1% In Ns 8.4%) 0.25 ml IV ONETIME PRN PRN Reason: Prior to IV Start Stop: 01/07/17 18:00 Magnesium Hydroxide (Milk Of Magnesia) 30 ml PO BID PRN PRN Reason: Constipation Meperidine HCl (Demerol) 12.5 mg IVPUSH ONETIME PRN PRN Reason: shivering Stop: 01/08/17 14:16 Midazolam HCl (Versed 1 Mg/Ml) Confirm Administered Dose 2 mg .ROUTE .STK-MED ONE Stop: 01/07/17 11:07 Miscellaneous Information (Remove Patch) 0 ea TRDERM DAILY [facility] Morphine Sulfate (Duramorph Pf) Confirm Administered Dose 10 mg .ROUTE .STK-MED ONE Stop: 01/07/17 12:25 Morphine Sulfate (Morphine) 2 mg IVPUSH Q2H PRN PRN Reason: Breakthrough Pain Last Admin: 01/08/17 07:56 Dose: 2 mg Multivitamins (Thera) 1 each PO WITHBREAKFAST [facility] Last Admin: 01/08/17 06:48 Dose: 1 each Naloxone HCl (Narcan) 0.1 mg IVPUSH Q5M PRN PRN Reason: Oversedation Stop: 01/07/17 16:31 Nicotine (Habitrol) 21 mg TRDERM DAILY [facility] Last Admin: 01/08/17 09:06 Dose: 21 mg Ondansetron HCl (Zofran) Confirm Administered Dose 4 mg .ROUTE .STK-MED ONE Stop: 01/07/17 13:20 Ondansetron HCl (Zofran) 4 mg IVPUSH ONETIME PRN PRN Reason: Nausea/Vomiting Stop: 01/07/17 18:00 Ondansetron HCl (Zofran) 4 mg IVPUSH Q6H PRN PRN Reason: Nausea/Vomiting Oxycodone/Acetaminophen (Percocet 325-5 Mg) 1 - 2 tab PO Q4H PRN PRN Reason: Pain Last Admin: 01/08/17 13:08 Dose: 2 tab Propofol (Diprivan 20 Ml) Confirm Administered Dose 600 mg .ROUTE .STK-MED ONE Stop: 01/07/17 11:07 Propofol (Diprivan 20 Ml) Confirm Administered Dose 200 mg .ROUTE .STK-MED ONE Stop: 01/07/17 14:23 Propofol (Diprivan 20 Ml) Confirm Administered Dose 200 mg .ROUTE .STK-MED ONE Stop: 01/07/17 14:23 Rivaroxaban (Xarelto) 10 mg PO DAILY [facility] Last Admin: 01/08/17 09:08 Dose: 10 mg Senna (Senna) 8.6 mg PO BID PRN PRN Reason: Constipation Sodium Chloride (Saline Flush) 10 ml FLUSH ASDIRECTED PRN PRN Reason: Keep Vein Open [facility] Last Admin: 01/08/17 09:09 Dose: 0.4 mg Tranexamic Acid (Cyklokapron) Confirm Administered Dose 1,000 mg .ROUTE .STK- MED ONE Stop: 01/07/17 11:32 Last Admin: 01/07/17 14:35 Dose: 1,000 mg *Q Meaningful Use (DIS) - VTE *Q VTE Criteria *Q: - Stroke *Q Stroke Criteria *Q: - AMI *Q AMI Criteria *Q:
== END 2017-01-08 15:15 | disposition home or self-care (01) | DRG 302 ==
LOC: JD.MS 10:56 → JD.OB 15:14
PROVIDERS: ADMIT Orthopaedic Surgery; ATTEND Orthopaedic Surgery
PROC: 0SRD0J9 Replacement of Left Knee Joint with Synthetic Substitute, Cemented, Open Approach (ICD-10-PCS; principal; 2017-01-07)
DX: M17.12 Unilateral primary osteoarthritis, left knee (principal); F17.200 Nicotine dependence, unspecified, uncomplicated; F10.21 Alcohol dependence, in remission; Z79.82 Long term (current) use of aspirin
CPT/HCPCS: 01402; 36415; 73560-26-LT; 73560-LT; 80053; 85025; 87641; 94762; 97110-GP; 97116-GP; 97161-GP; 97165-GO; 97530-GO; 97535-GO; A9270-GY; C1713; C1776; J0171; J0690; J0697; J1885; J2250; J2270; J2405; J2704; J3010; J3490; J7050; J7120

== ENCOUNTER 2021-07-27 15:27 | Inpatient (IN) | payer BC ==
[2021-07-27] MEDS ORDERED: Dexamethasone 10 MG/ML SDV IVPUSH ONE (16:08)
[2021-07-27] MEDS ORDERED: Lactated Ringers 500 ML IV ONE (16:50)
[2021-07-27] MEDS ORDERED: Iopamidol 755 Mg/ML 100 ML Bottle IVPUSH ONE (16:52)
[2021-07-27] MEDS ORDERED: Sodium Chloride 0.9% 10 ML Syringe FLUSH ONE (16:52)
[2021-07-27] MEDS ORDERED: Sodium Chloride 0.9% 100 ML IV SCH (17:00)
--- NOTE | 2021-07-27 17:09 | CR ---
Chest: Portable view of the chest was obtained. Comparison: Prior chest x-ray of 08/21/16. Heart size appears within normal limits for portable technique. Slight tortuosity of the thoracic aorta is seen. Diffuse interstitial change is noted throughout both lungs, worse on the right side. Atelectasis is also noted within the left lung base behind the left side of the heart. Bony structures are slightly osteopenic. Impression: 1. Interstitial change within both lungs, worse on the right side. Please correlate if findings represent diffuse pulmonary vascular congestion or diffuse interstitial pneumonia. 2. Other findings believed to be incidental as noted above. Diagnostic code #3
--- NOTE | 2021-07-27 17:14 | EDM.PDOC ---
ED HPI GENERAL MEDICAL PROBLEM - General Chief Complaint: Respiratory Problem Stated Complaint: COVID +/SOB Time Seen by Provider: 07/27/21 16:00 Source of Information: Reports: Patient History Limitations: Reports: No Limitations - History of Present Illness INITIAL COMMENTS - FREE TEXT/NARRATIVE: Patient is 61-year-old male presenting to the emergency room with chief complain t of shortness of breath. Patient had 7 to 10 days of symptoms where he felt ill which included symptoms of fatigue, lethargy, cough. Patient did not feel short of breath until last night. Shortness of breath became increasingly worse until today. He started feeling severe difficulty breathing. Patient has not had the Covid vaccination. He has no recent travels. He has no history of pulmonary embolism. Patient does have a past history of myocardial infarction. Not currently taking any medications. Symptoms are made worse with minimal exertion. - Related Data Allergies Allergy/AdvReac Type Severity Reaction Status Date / Time No Known Allergies Allergy Verified 07/27/21 15:59 Home Meds: Home Meds . [No Known Home Meds] 07/27/21 [History] Past Medical History HEENT History: Reports: Other (See Below) Other HEENT History: jaw surgery Cardiovascular History: Reports: RI Genitourinary History: Reports: Other (See Below) Other Genitourinary History: hematuria Psychiatric History: Reports: Other (See Below) Other Psychiatric History: history of alcohol abuse - Infectious Disease History Infectious Disease History: Reports: Novel Coronavirus - Past Surgical History HEENT Surgical History: Reports: Oral Surgery, Other (See Below) Other HEENT Surgeries/Procedures: Jaw Surgery, wisdom teeth removal Musculoskeletal Surgical History: Reports: Other (See Below) Other Musculoskeletal Surgeries/Procedures:: left knee surgery Social & Family History - Family History Family Medical History: No Pertinent Family History - Tobacco Use Tobacco Use Status *Q: Current Every Day Tobacco User Years of Tobacco use: 50 Packs/Tins Daily: 0.7 - Caffeine Use Caffeine Use: Reports: None - Recreational Drug Use Recreational Drug Use: No ED ROS GENERAL - Review of Systems Review Of Systems: See Below Free Text/Narrative/Comment: In addition to that documented in the HPI above, the additional ROS was obtained: Constitutional: Denies fevers or chills Eyes: Denies vision changes ENMT: Denies sore throat CV: Denies chest pain Resp: Per HPI GI: Denies vomiting or diarrhea : Denies painful urination MSK: Denies recent trauma Skin: Denies new rashes Neuro: Denies new numbness or tingling or weakness Endocrine: Denies unexpected weight loss Heme: Denies bleeding disorders ED EXAM, GENERAL - Physical Exam Exam: See Below Free Text/Narrative:: I have reviewed the triage vital signs. Initial pulse oxygenation on room air demonstrates 77%, indicating inadequate oxygenation. Const: Well nourished, well developed, appears stated age Eyes: Pupils Equal and reactive to light bilaterally, no conjunctival injection HENT: No signs of trauma or swelling, Neck supple without meningismus CV: Regular Rate Rhythm, Warm, well-perfused extremities RESP: Moderate respiratory distress but able to speak full sentences. 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 GI: soft, non-tender, non-distended, no masses MSK: No gross deformities appreciated Skin: Warm, dry. No rashes Neuro: Alert, mysql dba II-XII grossly intact. Sensation and motor function of extremities grossly intact. Psych: Appropriate mood and affect. #1 Interpretation EKG Date: 07/27/21 Time: 15:53 Rhythm: Other (sinus tachycardia) Rate (Beats/Min): 132 [place]: Normal P-Wave: Present QRS: Normal ST-T: Depressed (inferior lateral leads) QT: Normal Comparison: NA - No Prior EKG EKG Interpretation Comments: abnormal EKG Course - Vital Signs Last Recorded V/S: Last Vital Signs Temp 36.7 C 07/27/21 15:55 Pulse 123 H 07/27/21 15:55 Resp 20 07/27/21 15:55 BP 135/98 H 07/27/21 15:55 Pulse Ox 93 L 07/27/21 17:53 - Orders/Labs/Meds Orders: Active Orders 24 hr Category Date Time Status Patient Status [ADT] Routine ADT 07/27/21 18:12 Active Oxygen Therapy [RC] ASDIRECTED Care 07/27/21 16:21 Active Ang Chest w Cont [MR] Stat Exams 07/27/21 16:47 Stop Req Sodium Chloride 0.9% [Normal Saline] 100 ml Med 07/27/21 17:00 Active IV ASDIRECTED Medication Orders Sodium Chloride (Normal Saline) 100 mls @ 60 mls/hr IV ASDIRECTED [facility] Labs: Laboratory Tests 10/05/1007/27/21 07/27/21 Range/Units 16:10 16:10 16:10 WBC 6.79 (4.23-9.07) K/mm3 RBC 5.57 (4.63-6.08) M/mm3 Hgb 16.6 D (13.7-17.5) gm/dl Hct 48.6 (40.1-51.0) % MCV 87.3 (79.0-92.2) fl MCH 29.8 (25.7-32.2) pg MCHC 34.2 (32.2-35.5) g/dl RDW Std Deviation 47.2 H (35.1-43.9) fL Plt Count 223 (163-337) K/mm3 MPV 11.6 (9.4-12.3) fl Neut % (Auto) 83.2 H (34.0-67.9) % Lymph % (Auto) 11.5 L (21.8-53.1) % [place] % (Auto) 4.9 L (5.3-12.2) % Eos % (Auto) 0 L (0.8-7.0) Baso % (Auto) 0.1 (0.1-1.2) % Neut # (Auto) 5.65 H (1.78-5.38) K/mm3 Lymph # (Auto) 0.78 L (1.32-3.57) K/mm3 [place] # (Auto) 0.33 (0.30-0.82) K/mm3 Eos # (Auto) 0.00 L (0.04-0.54) K/mm3 Baso # (Auto) 0.01 (0.01-0.08) K/mm3 Manual Slide Review D-Dimer, Quantitative 0.94 H (0.19-0.50) mg/L Sodium 140 (136-145) mEq/L Potassium 4.0 (3.5-5.1) mEq/L Chloride 103 (98-107) mEq/L Carbon Dioxide 20 L (21-32) mEq/L Anion Gap 21.0 H (5-15) BUN 40 H D (7-18) mg/dL Creatinine 1.4 H (0.7-1.3) mg/dL Est Cr Clr Drug Dosing 52.25 mL/min Estimated GFR (MDRD) 51 (>60) mL/min BUN/Creatinine Ratio 28.6 H (14-18) Glucose 154 H (70-99) mg/dL Calcium 7.9 L (8.5-10.1) mg/dL Total Bilirubin 0.9 (0.2-1.0) mg/dL AST 70 H (15-37) U/L ALT 26 (16-63) U/L Alkaline Phosphatase 86 (46-116) U/L Troponin I < 0.017 (0.00-0.056) ng/mL C-Reactive Protein 8.9 H* (<1.0) mg/dL Total Protein 7.5 (6.4-8.2) g/dl Albumin 3.0 L (3.4-5.0) g/dl Globulin 4.5 gm/dL Albumin/Globulin Ratio 0.7 L (1-2) SARS-CoV-2 RNA (JORGE LUIS) (NEGATIVE) 07/27/21 Range/Units 16:26 WBC (4.23-9.07) K/mm3 RBC (4.63-6.08) M/mm3 Hgb (13.7-17.5) gm/dl Hct (40.1-51.0) % MCV (79.0-92.2) fl MCH (25.7-32.2) pg MCHC (32.2-35.5) g/dl RDW Std Deviation (35.1-43.9) fL Plt Count (163-337) K/mm3 MPV (9.4-12.3) fl Neut % (Auto) (34.0-67.9) % Lymph % (Auto) (21.8-53.1) % [place] % (Auto) (5.3-12.2) % Eos % (Auto) (0.8-7.0) Baso % (Auto) (0.1-1.2) % Neut # (Auto) (1.78-5.38) K/mm3 Lymph # (Auto) (1.32-3.57) K/mm3 [place] # (Auto) (0.30-0.82) K/mm3 Eos # (Auto) (0.04-0.54) K/mm3 Baso # (Auto) (0.01-0.08) K/mm3 Manual Slide Review D-Dimer, Quantitative (0.19-0.50) mg/L Sodium (136-145) mEq/L Potassium (3.5-5.1) mEq/L Chloride (98-107) mEq/L Carbon Dioxide (21-32) mEq/L Anion Gap (5-15) BUN (7-18) mg/dL Creatinine (0.7-1.3) mg/dL Est Cr Clr Drug Dosing mL/min Estimated GFR (MDRD) (>60) mL/min BUN/Creatinine Ratio (14-18) Glucose (70-99) mg/dL Calcium (8.5-10.1) mg/dL Total Bilirubin (0.2-1.0) mg/dL AST (15-37) U/L ALT (16-63) U/L Alkaline Phosphatase (46-116) U/L Troponin I (0.00-0.056) ng/mL C-Reactive Protein (<1.0) mg/dL Total Protein (6.4-8.2) g/dl Albumin (3.4-5.0) g/dl Globulin gm/dL Albumin/Globulin Ratio (1-2) SARS-CoV-2 RNA (JORGE LUIS) Positive H (NEGATIVE) Meds: Medications Generic Name Dose Route Start Last Admin Trade Name Freq PRN Reason Stop Dose Admin Sodium Chloride 100 mls @ 60 mls/hr 07/27/21 17:00 Normal Saline IV ASDIRECTED [facility] Discontinued Medications Generic Name Dose Route Start Last Admin Trade Name Freq PRN Reason Stop Dose Admin Dexamethasone 6 mg 07/27/21 16:08 07/27/21 16:20 Dexamethasone 10 Mg/Ml Sdv IVPUSH 07/27/21 16:09 6 mg ONETIME ONE Administration Lactated Ringer's 500 mls @ 1,000 mls/hr 07/27/21 16:50 07/27/21 17:19 Ringers, Lactated IV 07/27/21 17:19 1,000 mls/hr .BOLUS ONE Administration Iopamidol 100 ml 07/27/21 16:52 07/27/21 17:30 Iopamidol 755 Mg/Ml 100 Ml Bottle IVPUSH 07/27/21 16:53 100 ml ONETIME ONE Administration Sodium Chloride 10 ml 07/27/21 16:52 07/27/21 17:30 Sodium Chloride 0.9% 10 Ml Syringe FLUSH 07/27/21 16:53 10 ml ONETIME ONE Administration Departure - Departure Time of Disposition: 18:15 Disposition: Admitted As Inpatient 64 Clinical Impression: COVID-19, Hypoxia, Pneumonia due to COVID-19 virus - Discharge Information *PRESCRIPTION DRUG MONITORING PROGRAM REVIEWED*: Not Applicable *COPY OF PRESCRIPTION DRUG MONITORING REPORT IN PATIENT JEANNINE: Not Applicable Referrals: PCP,None [Primary Care Provider] - Forms: ED Department Discharge Critical Care Note - Critical Care Note Total Time (mins): 35 Comments: Critical Care Procedure Note Total critical care time: Approximately 35 minutes Indication: Acute hypoxemic respiratory failure Intervention: High flow nasal cannula, dexamethasone Due to a high probability of clinically significant, life threatening deterioration, the patient required my highest level of preparedness to intervene emergently and I personally spent this critical care time directly and personally managing the patient. This critical care time included obtaining a history; examining the patient; pulse oximetry; ordering and review of studies; arranging urgent treatment with development of a management plan; evaluation of patient's response to treatment; frequent reassessment; and, discussions with other providers. This critical care time was performed to assess and manage the high probability of imminent, life-threatening deterioration that could result in multi-organ failure. It was exclusive of separately billable procedures and treating other patients and teaching time. Sepsis Event Note (ED) - Evaluation Sepsis Screening Result: No Definite Risk - Focused Exam Vital Signs: Vital Signs Temp Pulse Resp BP Pulse Ox Pulse Ox 07/27/21 17:53 93 L 07/27/21 16:21 94 L 07/27/21 15:55 36.7 C 123 H 20 135/98 H 77 L - My Orders Last 24 Hours: My Active Orders 07/27/21 16:21 Oxygen Therapy [RC] ASDIRECTED 07/27/21 16:47 Ang Chest w Cont [MR] Stat 07/27/21 17:00 Sodium Chloride 0.9% [Normal Saline] 100 ml IV ASDIRECTED 07/27/21 18:12 Patient Status [ADT] Routine - Assessment/Plan Last 24 Hours: My Active Orders 07/27/21 16:21 Oxygen Therapy [RC] ASDIRECTED 07/27/21 16:47 Ang Chest w Cont [MR] Stat 07/27/21 17:00 Sodium Chloride 0.9% [Normal Saline] 100 ml IV ASDIRECTED 07/27/21 18:12 Patient Status [ADT] Routine Assessment:: Patient 61-year-old male presenting to the emergency room with a chief complaint of shortness of breath. Patient found to be hypoxic on arrival. Patient was immediately placed on nonrebreather and then subsequently high flow nasal cannula. Respiratory rate and tachycardia significantly improved with these interventions. Patient was otherwise hemodynamically stable. Afebrile on arrival. Signs and symptoms are consistent with COVID-19 infection and secondary pneumonia. However, concerns about pulmonary embolism after elevated D-dimer, CT angiogram was performed which demonstrated Covid pneumonia but no evidence of PE. Patient was given dexamethasone in the emergency room. He will be placed for admission for further monitoring of respiratory status and hypoxemia. Dr. Diaz agrees to accept patient for admission.
--- NOTE | 2021-07-27 18:03 | CT ---
CT chest Technique: Multiple axial sections were obtained to the chest. Intravenous contrast was utilized. Study has been performed as a pulmonary angiogram protocol. Comparison: Prior chest CT study of 10/11/15. Findings: Pulmonary arteries are well opacified. No filling defects are seen to indicate pulmonary embolism. Thoracic aorta shows no aneurysm. Small mediastinal lymph nodes are seen which are felt to be within normal limits. Minimal coronary artery calcification is noted. No pericardial thickening is seen. Visualized portions of the upper abdomen show partially visualized calcified gallstone. Lung window settings were reviewed. Patchy interstitial densities are seen within the right and left upper lung as well as within both lower lungs. Diffuse emphysematous change is also noted. Bone window settings were reviewed which show degenerative change within the spine most prominent within the lumbar regions. Old healed right-sided rib fracture is seen. Impression: 1. No findings of pulmonary embolism. 2. Diffuse interstitial change scattered throughout both lungs. These findings could represent diffuse scattered pneumonia, other etiology are extensive. 3. Other findings as noted above which are not chronic. Diagnostic code #3
[2021-07-27] MEDS ORDERED: REMDESIVIR 200 MG in Sodium Chloride 0.9% 250 ML IV ONE (20:00)
[2021-07-27] MEDS ORDERED: Albuterol/Ipratropium 3.0-0.5 MG/3 ML Neb Soln NEB PRN (20:08)
[2021-07-27] MEDS ORDERED: Ondansetron 4 MG/2 ML SDV IV PRN (20:08)
[2021-07-27] MEDS ORDERED: Acetaminophen 325 MG Tab PO PRN (20:08)
[2021-07-27] MEDS ORDERED: Benzonatate 100 MG Cap PO PRN (20:11)
--- NOTE | 2021-07-27 20:14 | PCM.HP.2 ---
H&P History of Present Illness - General Date of Service: 07/27/21 Admit Problem/Dx: Admission Diagnosis/Problem Admission Diagnosis/Problem Hypoxia - History of Present Illness Initial Comments - Free Text/Narative: 61-year-old male whose first started getting ill approximately 2 weeks ago. He states that he was working in his garden and started coughing. He initially had significant diarrhea that then led to shortness of breath, cough, and fatigue. Patient is not vaccinated against the Covid virus. When he presented to the emergency department he was found to be hypoxic Requiring high flow nasal cannu la. Patient was given dexamethasone, stabilized, and transferred to the floor. Initial oxygen saturation was 77%. Patient was also found to be tachycardic on presentation to the emergency department which resolved with better oxygenation. CT angiogram of the chest was performed which did not demonstrate pulmonary embolism but did show diffuse interstitial changes consistent with Covid pneumonia. Patient states he stopped smoking 2 weeks ago when he started feeling ill. He does not want a nicotine patch. - Related Data Allergies/Adverse Reactions: Allergies Allergy/AdvReac Type Severity Reaction Status Date / Time No Known Allergies Allergy Verified 07/27/21 15:59 Home Medications: Home Meds . [No Known Home Meds] 07/27/21 [History] Past Medical History HEENT History: Reports: Other (See Below) Other HEENT History: jaw surgery Cardiovascular History: Reports: OR Genitourinary History: Reports: Other (See Below) Other Genitourinary History: hematuria Psychiatric History: Reports: Other (See Below) Other Psychiatric History: history of alcohol abuse - Infectious Disease History Infectious Disease History: Reports: Novel Coronavirus - Past Surgical History HEENT Surgical History: Reports: Oral Surgery, Other (See Below) Other HEENT Surgeries/Procedures: Jaw Surgery, wisdom teeth removal Musculoskeletal Surgical History: Reports: Other (See Below) Other Musculoskeletal Surgeries/Procedures:: left knee surgery Social & Family History - Family History Family Medical History: No Pertinent Family History - Tobacco Use Tobacco Use Status *Q: Current Every Day Tobacco User Years of Tobacco use: 50 Packs/Tins Daily: 0.7 - Caffeine Use Caffeine Use: Reports: None - Recreational Drug Use Recreational Drug Use: No H&P Review of Systems - Review of Systems: Review Of Systems: Comprehensive ROS is negative, except as noted in HPI. Exam - Exam Exam: See Below - Vital Signs Vital Signs: Last Vital Signs Temp 98.1 F 07/27/21 15:55 Pulse 82 07/27/21 19:07 Resp 24 H 07/27/21 19:07 BP 110/63 07/27/21 19:07 Pulse Ox 92 L 07/27/21 19:07 Weight: 173 lb 1.6 oz - Exam Quality Assessment: Supplemental Oxygen (High flow nasal cannula) General: Alert, Oriented, 4 HEENT: Conjunctiva Clear, Hearing Intact, Mucosa Moist & [place] Neck: Supple, Trachea Midline, 2 Lungs: Crackles (Scattered). No: Normal Respiratory Effort (Increased respiratory rate and effort) Cardiovascular: Regular Rate, Regular Rhythm GI/Abdominal Exam: Normal Bowel Sounds, Soft, Non-Tender, No Organomegaly, No Distention, No Abnormal Bruit, No Mass Extremities: Normal Inspection, Normal Range of Motion, Non-Tender, No Pedal Edema, Normal Capillary Refill Skin: Warm, Dry, Intact Neurological: Cranial Nerves Intact Neuro Extensive - Mental Status: Alert, Oriented x3, Normal Mood/Affect, Normal Cognition, Memory Intact Neuro Extensive - Motor, Sensory, Reflexes: CN II-XII Intact Psychiatric: Alert, Normal Affect, Normal Mood - Patient Data Lab Results Last 24 hrs: Laboratory Results - last 24 hr 07/27/21 07/27/21 07/27/21 Range/Units 16:10 16:10 16:10 WBC 6.79 (4.23-9.07) K/mm3 RBC 5.57 (4.63-6.08) M/mm3 Hgb 16.6 D (13.7-17.5) gm/dl Hct 48.6 (40.1-51.0) % MCV 87.3 (79.0-92.2) fl MCH 29.8 (25.7-32.2) pg MCHC 34.2 (32.2-35.5) g/dl RDW Std Deviation 47.2 H (35.1-43.9) fL Plt Count 223 (163-337) K/mm3 MPV 11.6 (9.4-12.3) fl Neut % (Auto) 83.2 H (34.0-67.9) % Lymph % (Auto) 11.5 L (21.8-53.1) % [place] % (Auto) 4.9 L (5.3-12.2) % Eos % (Auto) 0 L (0.8-7.0) Baso % (Auto) 0.1 (0.1-1.2) % Neut # (Auto) 5.65 H (1.78-5.38) K/mm3 Lymph # (Auto) 0.78 L (1.32-3.57) K/mm3 [place] # (Auto) 0.33 (0.30-0.82) K/mm3 Eos # (Auto) 0.00 L (0.04-0.54) K/mm3 Baso # (Auto) 0.01 (0.01-0.08) K/mm3 Manual Slide Review D-Dimer, Quantitative 0.94 H (0.19-0.50) mg/L Sodium 140 (136-145) mEq/L Potassium 4.0 (3.5-5.1) mEq/L Chloride 103 (98-107) mEq/L Carbon Dioxide 20 L (21-32) mEq/L Anion Gap 21.0 H (5-15) BUN 40 H D (7-18) mg/dL Creatinine 1.4 H (0.7-1.3) mg/dL Est Cr Clr Drug Dosing 52.25 mL/min Estimated GFR (MDRD) 51 (>60) mL/min BUN/Creatinine Ratio 28.6 H (14-18) Glucose 154 H (70-99) mg/dL Calcium 7.9 L (8.5-10.1) mg/dL Total Bilirubin 0.9 (0.2-1.0) mg/dL AST 70 H (15-37) U/L ALT 26 (16-63) U/L Alkaline Phosphatase 86 (46-116) U/L Troponin I < 0.017 (0.00-0.056) ng/mL C-Reactive Protein 8.9 H* (<1.0) mg/dL Total Protein 7.5 (6.4-8.2) g/dl Albumin 3.0 L (3.4-5.0) g/dl Globulin 4.5 gm/dL Albumin/Globulin Ratio 0.7 L (1-2) SARS-CoV-2 RNA (JORGE LUIS) (NEGATIVE) 07/27/21 Range/Units 16:26 WBC (4.23-9.07) K/mm3 RBC (4.63-6.08) M/mm3 Hgb (13.7-17.5) gm/dl Hct (40.1-51.0) % MCV (79.0-92.2) fl MCH (25.7-32.2) pg MCHC (32.2-35.5) g/dl RDW Std Deviation (35.1-43.9) fL Plt Count (163-337) K/mm3 MPV (9.4-12.3) fl Neut % (Auto) (34.0-67.9) % Lymph % (Auto) (21.8-53.1) % [place] % (Auto) (5.3-12.2) % Eos % (Auto) (0.8-7.0) Baso % (Auto) (0.1-1.2) % Neut # (Auto) (1.78-5.38) K/mm3 Lymph # (Auto) (1.32-3.57) K/mm3 [place] # (Auto) (0.30-0.82) K/mm3 Eos # (Auto) (0.04-0.54) K/mm3 Baso # (Auto) (0.01-0.08) K/mm3 Manual Slide Review D-Dimer, Quantitative (0.19-0.50) mg/L Sodium (136-145) mEq/L Potassium (3.5-5.1) mEq/L Chloride (98-107) mEq/L Carbon Dioxide (21-32) mEq/L Anion Gap (5-15) BUN (7-18) mg/dL Creatinine (0.7-1.3) mg/dL Est Cr Clr Drug Dosing mL/min Estimated GFR (MDRD) (>60) mL/min BUN/Creatinine Ratio (14-18) Glucose (70-99) mg/dL Calcium (8.5-10.1) mg/dL Total Bilirubin (0.2-1.0) mg/dL AST (15-37) U/L ALT (16-63) U/L Alkaline Phosphatase (46-116) U/L Troponin I (0.00-0.056) ng/mL C-Reactive Protein (<1.0) mg/dL Total Protein (6.4-8.2) g/dl Albumin (3.4-5.0) g/dl Globulin gm/dL Albumin/Globulin Ratio (1-2) SARS-CoV-2 RNA (JORGE LUIS) Positive H (NEGATIVE) Result Diagrams: 07/28/21 07:27 07/28/21 07:27 Sepsis Event Note - Evaluation Sepsis Screening Result: No Definite Risk - Focused Exam Vital Signs: Vital Signs Temp Pulse Pulse Resp BP BP Pulse Ox 07/27/21 19:07 82 24 H 110/63 92 L 07/27/21 17:53 07/27/21 16:21 07/27/21 15:55 98.1 F 123 H 20 135/98 H 77 L Pulse Ox 07/27/21 19:07 07/27/21 17:53 93 L 07/27/21 16:21 94 L 07/27/21 15:55 - Problem List (1) Hypoxia SNOMED Code(s): 183257132 ICD Code: R09.02 - HYPOXEMIA Status: Acute Current Visit: Yes (2) Pneumonia due to COVID-19 virus SNOMED Code(s): 275379295264993631 ICD Code: U07.1 - COVID-19; J12.82 - PNEUMONIA DUE TO CORONAVIRUS DISEASE 2019 Status: Acute Current Visit: Yes Problem List Initiated/Reviewed/Updated: Yes Orders Last 24hrs: Active Orders 24 hr Category Date Time Status Patient Status [ADT] Routine ADT 07/27/21 18:12 Active Nurse Communication: Isolation [RC] ASDIRECTED Care 07/27/21 20:08 Ordered Oxygen Therapy [RC] ASDIRECTED Care 07/27/21 16:21 Active Positioning, Patient [RC] ASDIRECTED Care 07/27/21 20:10 Ordered Pulse Oximetry [RC] CONTINUOUS Care 07/27/21 19:24 Active RT Aerosol Therapy [RC] ASDIRECTED Care 07/27/21 20:12 Ordered RT Post Treatment Assessment [RC] Click to Edit Care 07/27/21 20:12 Ordered RT Pre-Treatment Assessment [RC] Click to Edit Care 07/27/21 20:12 Ordered VTE/DVT Education [RC] PER UNIT ROUTINE Care 07/27/21 20:08 Ordered Vital Signs [RC] Q4H Care 07/27/21 20:08 Ordered Regular Diet [DIET] Diet 07/27/21 Dinner Ordered Ang Chest w Cont [MR] Stat Exams 07/27/21 16:47 Stop Req C-REACTIVE PROTEIN [CHEM] AM Lab 07/28/21 05:11 Ordered C-REACTIVE PROTEIN [CHEM] AM Lab 07/29/21 05:11 Ordered C-REACTIVE PROTEIN [CHEM] AM Lab 07/30/21 05:11 Ordered C-REACTIVE PROTEIN [CHEM] AM Lab 07/31/21 05:11 Ordered C-REACTIVE PROTEIN [CHEM] AM Lab 08/01/21 05:11 Ordered CBC WITH AUTO DIFF [HEME] AM Lab 07/28/21 05:11 Ordered CBC WITH AUTO DIFF [HEME] AM Lab 07/29/21 05:11 Ordered CBC WITH AUTO DIFF [HEME] AM Lab 07/30/21 05:11 Ordered CBC WITH AUTO DIFF [HEME] AM Lab 07/31/21 05:11 Ordered CBC WITH AUTO DIFF [HEME] AM Lab 08/01/21 05:11 Ordered CMP [COMPREHENSIVE METABOLIC PN,CMP] [CHEM] AM Lab 07/28/21 05:11 Ordered CMP [COMPREHENSIVE METABOLIC PN,CMP] [CHEM] AM Lab 07/29/21 05:11 Ordered CMP [COMPREHENSIVE METABOLIC PN,CMP] [CHEM] AM Lab 07/30/21 05:11 Ordered CMP [COMPREHENSIVE METABOLIC PN,CMP] [CHEM] AM Lab 07/31/21 05:11 Ordered CMP [COMPREHENSIVE METABOLIC PN,CMP] [CHEM] AM Lab 08/01/21 05:11 Ordered MAGNESIUM [CHEM] AM Lab 07/28/21 05:11 Ordered MAGNESIUM [CHEM] AM Lab 07/29/21 05:11 Ordered MAGNESIUM [CHEM] AM Lab 07/30/21 05:11 Ordered MAGNESIUM [CHEM] AM Lab 07/31/21 05:11 Ordered MAGNESIUM [CHEM] AM Lab 08/01/21 05:11 Ordered PHOSPHORUS [CHEM] AM Lab 07/28/21 05:11 Ordered PHOSPHORUS [CHEM] AM Lab 07/29/21 05:11 Ordered PHOSPHORUS [CHEM] AM Lab 07/30/21 05:11 Ordered PHOSPHORUS [CHEM] AM Lab 07/31/21 05:11 Ordered PHOSPHORUS [CHEM] AM Lab 08/01/21 05:11 Ordered Acetaminophen [TylenoL] Med 07/27/21 20:08 Ordered 650 mg PO Q4H PRN Albuterol [Proventil HFA] Med 07/27/21 20:12 Ordered See Dose Instructions INH Q2H PRN Albuterol/Ipratropium [DuoNeb 3.0-0.5 MG/3 ML] Med 07/27/21 20:08 Ordered 3 ml NEB Q4H PRN Benzonatate [Tessalon Perles] Med 07/27/21 20:11 Ordered 200 mg PO Q8H PRN Enoxaparin [Lovenox] Med 07/28/21 09:00 Ordered 40 mg SUBCUT DAILY Ondansetron [Zofran] Med 07/27/21 20:08 Ordered 4 mg IV Q6H PRN Remdesivir 100 mg Med 07/28/21 20:15 Ordered Sodium Chloride 0.9% [Normal Saline] 100 ml IV Q24H Remdesivir 200 mg Med 07/27/21 20:08 Ordered Sodium Chloride 0.9% [Normal Saline] 250 ml IV ONETIME Sodium Chloride 0.9% [Normal Saline] 100 ml Med 07/27/21 17:00 Active IV ASDIRECTED dexAMETHasone Med 07/28/21 09:00 Ordered 6 mg PO DAILY polyethylene glycoL 3350 [MiraLAX] Med 07/27/21 20:08 Ordered 17 gm PO DAILY PRN Isolation [COMM] Stat Oth 07/27/21 20:08 Ordered Resuscitation Status Routine Resus Stat 07/27/21 20:08 Ordered Medication Orders Sodium Chloride (Normal Saline) 100 mls @ 60 mls/hr IV ASDIRECTED [facility] Assessment/Plan Comment:: 61-year-old male with COVID-19 pneumonia. 40+ pack year history. COVID-19 pneumonia Respiratory failure * Oxygenation in the 70s on presentation * High flow nasal cannula 50 L and 50% * WBC 6.8, D-dimer 0.94, BUN 40, creatinine 1.4, CRP 8.9 * CT angiogram negative for pulmonary embolism but consistent with COVID-19 pneumonia * Unvaccinated * Tobacco user, 40+ pack year history * Received first dose of dexamethasone in the emergency department Plan * Admit to medical floor on strict isolation * High flow nasal cannula to keep SPO2 between 88 and 94% * Continue dexamethasone 6 mg daily * Start remdesivir * Counseled the patient in regards to Actemra and gave him the EUA handout. Patient will review it overnight. * Offered nicotine patch, patient refused * Emily Robles for cough * RT, I-S * Follow CBC, CMP, mag, Phos, CRP. Periodic D-dimer * VTE prophylaxis with Lovenox * CODE STATUS: Full code - Mortality Measure Prognosis:: Good
[2021-07-28] MEDS: Enoxaparin 40 MG/0.4 ML Syringe SUBCUT SCH (08:13)
[2021-07-28] MEDS: Albuterol 6.7 GM Inhaler INH PRN ×2 (08:40→16:36)
[2021-07-28] MEDS ORDERED: FLU Vacc QS2021-22 36MOS UP/PF 60 MCG/0.5 ML Syringe IM ONE (09:45)
[2021-07-28] MEDS ORDERED: TOCILIZUMAB IV ONE (11:00)
[2021-07-28] MEDS ORDERED: [UNRECOGNIZED DRUG - OTHER] IV ONE (11:00)
[2021-07-28] MEDS: Polyethylene Glycol 3350 Powder 17 GM Packet PO PRN (11:40)
[2021-07-28] MEDS: guaiFENesin 600 MG Tab.ER PO SCH ×2 (14:37→21:14)
--- NOTE | 2021-07-28 14:51 | PCM.PN ---
- General Info Date of Service: 07/28/21 Admission Dx/Problem (Free Text): Admission Diagnosis/Problem Admission Diagnosis/Problem Hypoxia Subjective Update: Patient continues to be short of breath. His appetite is poor. He continues on high flow nasal cannula with increased support. Functional Status: Reports: Pain Controlled - Review of Systems General: Reports: Fatigue HEENT: Reports: No Symptoms Pulmonary: Reports: Shortness of Breath, Cough Cardiovascular: Reports: No Symptoms Gastrointestinal: Reports: No Symptoms Musculoskeletal: Reports: No Symptoms Neurological: Reports: No Symptoms Psychiatric: Reports: No Symptoms - Patient Data Vitals - Most Recent: Last Vital Signs Temp 98.2 F 07/28/21 08:16 Pulse 72 07/28/21 08:16 Resp 20 07/28/21 08:16 BP 108/63 07/28/21 08:16 Pulse Ox 92 L 07/28/21 12:21 Weight - Most Recent: 171 lb 8 oz I&O - Last 24 Hours: Intake & Output 07/27/21 07/28/21 07/28/21 22:59 06:59 14:59 Intake Total 1050 340 Output Total 500 Balance 550 340 Lab Results Last 24 Hours: Laboratory Results - last 24 hr 07/27/21 07/27/21 07/27/21 Range/Units 16:10 16:10 16:10 WBC 6.79 (4.23-9.07) K/mm3 RBC 5.57 (4.63-6.08) M/mm3 Hgb 16.6 D (13.7-17.5) gm/dl Hct 48.6 (40.1-51.0) % MCV 87.3 (79.0-92.2) fl MCH 29.8 (25.7-32.2) pg MCHC 34.2 (32.2-35.5) g/dl RDW Std Deviation 47.2 H (35.1-43.9) fL Plt Count 223 (163-337) K/mm3 MPV 11.6 (9.4-12.3) fl Neut % (Auto) 83.2 H (34.0-67.9) % Lymph % (Auto) 11.5 L (21.8-53.1) % [place] % (Auto) 4.9 L (5.3-12.2) % Eos % (Auto) 0 L (0.8-7.0) Baso % (Auto) 0.1 (0.1-1.2) % Neut # (Auto) 5.65 H (1.78-5.38) K/mm3 Lymph # (Auto) 0.78 L (1.32-3.57) K/mm3 [place] # (Auto) 0.33 (0.30-0.82) K/mm3 Eos # (Auto) 0.00 L (0.04-0.54) K/mm3 Baso # (Auto) 0.01 (0.01-0.08) K/mm3 Manual Slide Review D-Dimer, Quantitative 0.94 H (0.19-0.50) mg/L Sodium 140 (136-145) mEq/L Potassium 4.0 (3.5-5.1) mEq/L Chloride 103 (98-107) mEq/L Carbon Dioxide 20 L (21-32) mEq/L Anion Gap 21.0 H (5-15) BUN 40 H D (7-18) mg/dL Creatinine 1.4 H (0.7-1.3) mg/dL Est Cr Clr Drug Dosing 52.25 mL/min Estimated GFR (MDRD) 51 (>60) mL/min BUN/Creatinine Ratio 28.6 H (14-18) Glucose 154 H (70-99) mg/dL Calcium 7.9 L (8.5-10.1) mg/dL Phosphorus (2.6-4.7) mg/dL Magnesium (1.8-2.4) mg/dL Total Bilirubin 0.9 (0.2-1.0) mg/dL AST 70 H (15-37) U/L ALT 26 (16-63) U/L Alkaline Phosphatase 86 (46-116) U/L Troponin I < 0.017 (0.00-0.056) ng/mL C-Reactive Protein 8.9 H* (<1.0) mg/dL Total Protein 7.5 (6.4-8.2) g/dl Albumin 3.0 L (3.4-5.0) g/dl Globulin 4.5 gm/dL Albumin/Globulin Ratio 0.7 L (1-2) SARS-CoV-2 RNA (JORGE LUIS) (NEGATIVE) 07/27/21 07/28/21 07/28/21 Range/Units 16:26 07:27 07:27 WBC 3.77 L (4.23-9.07) K/mm3 RBC 5.27 (4.63-6.08) M/mm3 Hgb 15.6 (13.7-17.5) gm/dl Hct 46.3 (40.1-51.0) % MCV 87.9 (79.0-92.2) fl MCH 29.6 (25.7-32.2) pg MCHC 33.7 (32.2-35.5) g/dl RDW Std Deviation 47.8 H (35.1-43.9) fL Plt Count 221 (163-337) K/mm3 MPV 11.8 (9.4-12.3) fl Neut % (Auto) 79.5 H (34.0-67.9) % Lymph % (Auto) 14.9 L (21.8-53.1) % [place] % (Auto) 4.5 L (5.3-12.2) % Eos % (Auto) 0.3 L (0.8-7.0) Baso % (Auto) 0.5 (0.1-1.2) % Neut # (Auto) 3.00 (1.78-5.38) K/mm3 Lymph # (Auto) 0.56 L (1.32-3.57) K/mm3 [place] # (Auto) 0.17 L (0.30-0.82) K/mm3 Eos # (Auto) 0.01 L (0.04-0.54) K/mm3 Baso # (Auto) 0.02 (0.01-0.08) K/mm3 Manual Slide Review Normal smear D-Dimer, Quantitative (0.19-0.50) mg/L Sodium 139 (136-145) mEq/L Potassium 3.5 (3.5-5.1) mEq/L Chloride 102 (98-107) mEq/L Carbon Dioxide 24 (21-32) mEq/L Anion Gap 16.5 H (5-15) BUN 43 H (7-18) mg/dL Creatinine 1.1 (0.7-1.3) mg/dL Est Cr Clr Drug Dosing 66.50 mL/min Estimated GFR (MDRD) > 60 (>60) mL/min BUN/Creatinine Ratio 39.1 H (14-18) Glucose 180 H (70-99) mg/dL Calcium 7.8 L (8.5-10.1) mg/dL Phosphorus 4.0 (2.6-4.7) mg/dL Magnesium 2.9 H (1.8-2.4) mg/dL Total Bilirubin 0.7 (0.2-1.0) mg/dL AST 62 H (15-37) U/L ALT 27 (16-63) U/L Alkaline Phosphatase 79 (46-116) U/L Troponin I (0.00-0.056) ng/mL C-Reactive Protein 9.0 H* (<1.0) mg/dL Total Protein 6.8 (6.4-8.2) g/dl Albumin 2.7 L (3.4-5.0) g/dl Globulin 4.1 gm/dL Albumin/Globulin Ratio 0.7 L (1-2) SARS-CoV-2 RNA ([facility]) Positive H (NEGATIVE) Med Orders - Current: Current Medications Acetaminophen (Acetaminophen 325 Mg Tab) 650 mg PO Q4H PRN PRN Reason: Pain (Mild 1-3)/fever Albuterol (Albuterol 6.7 Gm Inhaler) 0 gm INH Q2H PRN PRN Reason: Shortness of Breath Last Admin: 07/28/21 08:40 Dose: 2 puff Documented by: Albuterol/Ipratropium (Albuterol/Ipratropium 3.0-0.5 Mg/3 Ml Neb Soln) 3 ml NEB Q4H PRN PRN Reason: Shortness Of Breath/wheezing Benzonatate (Benzonatate 100 Mg Cap) 200 mg PO Q8H PRN PRN Reason: Cough Dexamethasone (Dexamethasone 4 Mg Tab) 6 mg PO DAILY@1700 [facility] Stop: 08/05/21 17:01 Enoxaparin Sodium (Enoxaparin 40 Mg/0.4 Ml Syringe) 40 mg SUBCUT DAILY [facility] Last Admin: 07/28/21 08:13 Dose: 40 mg Documented by: Guaifenesin (Guaifenesin 600 Mg Tab.Er) 600 mg PO TID [facility] Remdesivir 100 mg/ Sodium (Chloride) 100 mls @ 100 mls/hr IV Q24H [facility] Stop: 10/11/21 20:59 Ondansetron HCl (Ondansetron 4 Mg/2 Ml Sdv) 4 mg IV Q6H PRN PRN Reason: Nausea/Vomiting Polyethylene Glycol (Polyethylene Glycol 3350 Powder 17 Gm Packet) 17 gm PO DAILY PRN PRN Reason: Constipation Last Admin: 07/28/21 11:40 Dose: 17 gm Documented by: Discontinued Medications Dexamethasone (Dexamethasone 10 Mg/Ml Sdv) 6 mg IVPUSH ONETIME ONE Stop: 07/27/21 16:09 Last Admin: 07/27/21 16:20 Dose: 6 mg Documented by: Lactated Ringer's (Ringers, Lactated) 500 mls @ 1,000 mls/hr IV .BOLUS ONE Stop: 07/27/21 17:19 Last Admin: 07/27/21 17:19 Dose: 1,000 mls/hr Documented by: Sodium Chloride (Normal Saline) 100 mls @ 60 mls/hr IV ASDIRECTED [facility] Remdesivir 200 mg/ Sodium (Chloride) 250 mls @ 250 mls/hr IV ONETIME ONE Stop: 07/27/21 20:59 Last Admin: 07/27/21 22:51 Dose: 250 mls/hr Documented by: Tocilizumab 200 mg/Tocilizumab 25 mg/ Tocilizumab 400 mg/ Sodium Chloride 100 mls @ 100 mls/hr IV ONETIME ONE Stop: 07/28/21 11:59 Last Admin: 07/28/21 11:35 Dose: 100 mls/hr Documented by: Influenza Virus Vaccine (Pharmacy To Dose - Influenza Vaccine) 1 each IM ONETIM E ONE Stop: 07/28/21 00:46 Influenza Virus Vaccine (Flu Vacc [id number] 36mos Up/Pf 60 Mcg/0.5 Ml Syringe) 60 mcg IM .ONCE ONE Stop: 07/28/21 09:46 Iopamidol (Iopamidol 755 Mg/Ml 100 Ml Bottle) 100 ml IVPUSH ONETIME ONE Stop: 07/27/21 16:53 Last Admin: 07/27/21 17:30 Dose: 100 ml Documented by: Sodium Chloride (Sodium Chloride 0.9% 10 Ml Syringe) 10 ml FLUSH ONETIME ONE Stop: 07/27/21 16:53 Last Admin: 07/27/21 17:30 Dose: 10 ml Documented by: - Exam Quality Assessment: Supplemental Oxygen General: Alert, Oriented HEENT: Pupils Equal, Mucous Membr. Moist/[place] Neck: Supple Lungs: Crackles (Bibasilar). No: Normal Respiratory Effort (Increased respiratory rate and effort) Cardiovascular: Regular Rate, Regular Rhythm GI/Abdominal Exam: Normal Bowel Sounds, No Distention Back Exam: Normal Inspection Skin: Warm, Dry, Intact Psy/Mental Status: Alert, Normal Affect, Normal Mood - Patient Data Lab Results Last 24 hrs: Laboratory Results - last 24 hr 07/27/21 07/27/21 07/27/21 Range/Units 16:10 16:10 16:10 WBC 6.79 (4.23-9.07) K/mm3 RBC 5.57 (4.63-6.08) M/mm3 Hgb 16.6 D (13.7-17.5) gm/dl Hct 48.6 (40.1-51.0) % MCV 87.3 (79.0-92.2) fl MCH 29.8 (25.7-32.2) pg MCHC 34.2 (32.2-35.5) g/dl RDW Std Deviation 47.2 H (35.1-43.9) fL Plt Count 223 (163-337) K/mm3 MPV 11.6 (9.4-12.3) fl Neut % (Auto) 83.2 H (34.0-67.9) % Lymph % (Auto) 11.5 L (21.8-53.1) % [place] % (Auto) 4.9 L (5.3-12.2) % Eos % (Auto) 0 L (0.8-7.0) Baso % (Auto) 0.1 (0.1-1.2) % Neut # (Auto) 5.65 H (1.78-5.38) K/mm3 Lymph # (Auto) 0.78 L (1.32-3.57) K/mm3 [place] # (Auto) 0.33 (0.30-0.82) K/mm3 Eos # (Auto) 0.00 L (0.04-0.54) K/mm3 Baso # (Auto) 0.01 (0.01-0.08) K/mm3 Manual Slide Review D-Dimer, Quantitative 0.94 H (0.19-0.50) mg/L Sodium 140 (136-145) mEq/L Potassium 4.0 (3.5-5.1) mEq/L Chloride 103 (98-107) mEq/L Carbon Dioxide 20 L (21-32) mEq/L Anion Gap 21.0 H (5-15) BUN 40 H D (7-18) mg/dL Creatinine 1.4 H (0.7-1.3) mg/dL Est Cr Clr Drug Dosing 52.25 mL/min Estimated GFR (MDRD) 51 (>60) mL/min BUN/Creatinine Ratio 28.6 H (14-18) Glucose 154 H (70-99) mg/dL Calcium 7.9 L (8.5-10.1) mg/dL Phosphorus (2.6-4.7) mg/dL Magnesium (1.8-2.4) mg/dL Total Bilirubin 0.9 (0.2-1.0) mg/dL AST 70 H (15-37) U/L ALT 26 (16-63) U/L Alkaline Phosphatase 86 (46-116) U/L Troponin I < 0.017 (0.00-0.056) ng/mL C-Reactive Protein 8.9 H* (<1.0) mg/dL Total Protein 7.5 (6.4-8.2) g/dl Albumin 3.0 L (3.4-5.0) g/dl Globulin 4.5 gm/dL Albumin/Globulin Ratio 0.7 L (1-2) SARS-CoV-2 RNA (JORGE LUIS) (NEGATIVE) 07/27/21 07/28/21 07/28/21 Range/Units 16:26 07:27 07:27 WBC 3.77 L (4.23-9.07) K/mm3 RBC 5.27 (4.63-6.08) M/mm3 Hgb 15.6 (13.7-17.5) gm/dl Hct 46.3 (40.1-51.0) % MCV 87.9 (79.0-92.2) fl MCH 29.6 (25.7-32.2) pg MCHC 33.7 (32.2-35.5) g/dl RDW Std Deviation 47.8 H (35.1-43.9) fL Plt Count 221 (163-337) K/mm3 MPV 11.8 (9.4-12.3) fl Neut % (Auto) 79.5 H (34.0-67.9) % Lymph % (Auto) 14.9 L (21.8-53.1) % [place] % (Auto) 4.5 L (5.3-12.2) % Eos % (Auto) 0.3 L (0.8-7.0) Baso % (Auto) 0.5 (0.1-1.2) % Neut # (Auto) 3.00 (1.78-5.38) K/mm3 Lymph # (Auto) 0.56 L (1.32-3.57) K/mm3 [place] # (Auto) 0.17 L (0.30-0.82) K/mm3 Eos # (Auto) 0.01 L (0.04-0.54) K/mm3 Baso # (Auto) 0.02 (0.01-0.08) K/mm3 Manual Slide Review Normal smear D-Dimer, Quantitative (0.19-0.50) mg/L Sodium 139 (136-145) mEq/L Potassium 3.5 (3.5-5.1) mEq/L Chloride 102 (98-107) mEq/L Carbon Dioxide 24 (21-32) mEq/L Anion Gap 16.5 H (5-15) BUN 43 H (7-18) mg/dL Creatinine 1.1 (0.7-1.3) mg/dL Est Cr Clr Drug Dosing 66.50 mL/min Estimated GFR (MDRD) > 60 (>60) mL/min BUN/Creatinine Ratio 39.1 H (14-18) Glucose 180 H (70-99) mg/dL Calcium 7.8 L (8.5-10.1) mg/dL Phosphorus 4.0 (2.6-4.7) mg/dL Magnesium 2.9 H (1.8-2.4) mg/dL Total Bilirubin 0.7 (0.2-1.0) mg/dL AST 62 H (15-37) U/L ALT 27 (16-63) U/L Alkaline Phosphatase 79 (46-116) U/L Troponin I (0.00-0.056) ng/mL C-Reactive Protein 9.0 H* (<1.0) mg/dL Total Protein 6.8 (6.4-8.2) g/dl Albumin 2.7 L (3.4-5.0) g/dl Globulin 4.1 gm/dL Albumin/Globulin Ratio 0.7 L (1-2) SARS-CoV-2 RNA (JORGE LUIS) Positive H (NEGATIVE) Result Diagrams: 07/28/21 07:27 07/28/21 07:27 Sepsis Event Note - Evaluation Sepsis Screening Result: No Definite Risk - Focused Exam Vital Signs: Vital Signs Temp Pulse Resp BP Pulse Ox Pulse Ox 07/28/21 12:21 92 L 07/28/21 08:40 91 L 07/28/21 08:16 98.2 F 72 20 108/63 92 L 07/28/21 06:31 91 L 07/28/21 02:59 99.0 F 56 L 16 112/65 90 L - Problem List & Annotations (1) Hypoxia SNOMED Code(s): 711099750 Code(s): R09.02 - HYPOXEMIA Status: Acute Current Visit: Yes (2) Pneumonia due to COVID-19 virus SNOMED Code(s): 169934854516837365 Code(s): U07.1 - COVID-19; J12.82 - PNEUMONIA DUE TO CORONAVIRUS DISEASE 2019 Status: Acute Current Visit: Yes - Problem List Review Problem List Initiated/Reviewed/Updated: Yes - My Orders Last 24 Hours: My Active Orders 07/27/21 Dinner Regular Diet [DIET] 07/27/21 18:45 Patient Status [ADT] Routine 07/27/21 19:24 Pulse Oximetry [RC] CONTINUOUS 07/27/21 20:08 VTE/DVT Education [RC] DAILY Vital Signs [RC] Q4HR Acetaminophen [TylenoL] 650 mg PO Q4H PRN Albuterol/Ipratropium [DuoNeb 3.0-0.5 MG/3 ML] 3 ml NEB Q4H PRN Ondansetron [Zofran] 4 mg IV Q6H PRN polyethylene glycoL 3350 [MiraLAX] 17 gm PO DAILY PRN Isolation [COMM] Stat Resuscitation Status Routine 07/27/21 20:10 Positioning, Patient [RC] BID 07/27/21 20:11 Benzonatate [Tessalon Perles] 200 mg PO Q8H PRN 07/27/21 20:12 RT Aerosol Therapy [RC] ASDIRECTED RT Post Treatment Assessment [RC] Click to Edit Albuterol [Proventil HFA] See Dose Instructions INH Q2H PRN 07/28/21 00:45 Vaccine to be Administered/Admin Charge [RC] ASDIRECTED 07/28/21 09:00 Enoxaparin [Lovenox] 40 mg SUBCUT DAILY 07/28/21 09:50 Up With Assistance [RC] ASDIRECTED 07/28/21 15:00 guaiFENesin [Mucinex] 600 mg PO TID 07/28/21 Dinner Regular Diet [DIET] dexAMETHasone 6 mg PO DAILY@1700 07/28/21 20:00 Remdesivir 100 mg Sodium Chloride 0.9% [Normal Saline] 100 ml IV Q24H 07/29/21 05:11 C-REACTIVE PROTEIN [CHEM] AM CBC WITH AUTO DIFF [HEME] AM CMP [COMPREHENSIVE METABOLIC PN,CMP] [CHEM] AM MAGNESIUM [CHEM] AM PHOSPHORUS [CHEM] AM 07/30/21 05:11 C-REACTIVE PROTEIN [CHEM] AM CBC WITH AUTO DIFF [HEME] AM CMP [COMPREHENSIVE METABOLIC PN,CMP] [CHEM] AM MAGNESIUM [CHEM] AM PHOSPHORUS [CHEM] AM 07/31/21 05:11 C-REACTIVE PROTEIN [CHEM] AM CBC WITH AUTO DIFF [HEME] AM CMP [COMPREHENSIVE METABOLIC PN,CMP] [CHEM] AM MAGNESIUM [CHEM] AM PHOSPHORUS [CHEM] AM 08/01/21 05:11 C-REACTIVE PROTEIN [CHEM] AM CBC WITH AUTO DIFF [HEME] AM CMP [COMPREHENSIVE METABOLIC PN,CMP] [CHEM] AM MAGNESIUM [CHEM] AM PHOSPHORUS [CHEM] AM - Plan Plan:: 61-year-old male with COVID-19 pneumonia. 40+ pack year history. COVID-19 pneumonia Respiratory failure * Tobacco user, 40+ pack year history * Oxygenation in the 70s on presentation * Received first dose of dexamethasone in the emergency department * CT angiogram negative for pulmonary embolism but consistent with COVID-19 pneumonia * Oxygen requirement increased overnight. * High flow nasal cannula 55 L and 55% * WBC 3.77, platelets 221, creatinine decreased to 1.1, BUN 43, glucose 180, CRP 9.0, albumin decreased to 2.7 Plan * Admit to medical floor on strict isolation * High flow nasal cannula to keep SPO2 between 88 and 94% * Dexamethasone day 2 * Remdesivir day 2 * Offered nicotine patch, patient refused * Tessalon Perles for cough * RT, I-S * Follow CBC, CMP, mag, Phos, CRP. Periodic D-dimer * VTE prophylaxis with Lovenox * CODE STATUS: Full code I spoke with Rikki to provide information about Actemra. I offered the "fax sheet for patients and parents/caregivers, for Actemra to read and review. I stated that therapy has been approved by an emergency use authorization process and has not fully been FDA reviewed or approved. I shared potential risks from the therapy including increased risk for serious infections, anaphylaxis, and reaction to medication. I discussed there are other potential treatment options that are currently not FDA approved to treat COVID-19. Offered opportunity to ask questions and all questions were answered. Rikki voiced understanding and agreed to proceed with treatment.
[2021-07-28] MEDS: Dexamethasone 4 MG Tab PO SCH (16:26)
[2021-07-28] MEDS: REMDESIVIR 100 MG in Sodium Chloride 0.9% 100 ML IV SCH (21:13)
[2021-07-29] MEDS: Enoxaparin 40 MG/0.4 ML Syringe SUBCUT SCH (09:58)
[2021-07-29] MEDS: guaiFENesin 600 MG Tab.ER PO SCH ×3 (09:58→20:47)
--- NOTE | 2021-07-29 12:26 | PCM.PN ---
- General Info Date of Service: 07/29/21 Admission Dx/Problem (Free Text): Admission Diagnosis/Problem Admission Diagnosis/Problem Hypoxia Subjective Update: Patient continues to be short of breath. He continues on high flow nasal cannula with increased support. Appetite is improving Functional Status: Reports: Pain Controlled - Review of Systems General: Reports: No Symptoms HEENT: Reports: No Symptoms Pulmonary: Reports: Shortness of Breath, Cough Cardiovascular: Reports: No Symptoms Gastrointestinal: Reports: No Symptoms Musculoskeletal: Reports: No Symptoms - Patient Data Vitals - Most Recent: Last Vital Signs Temp 98.1 F 07/29/21 11:35 Pulse 79 07/29/21 11:35 Resp 20 07/29/21 11:35 BP 111/63 07/29/21 11:35 Pulse Ox 87 L 07/29/21 11:35 Weight - Most Recent: 169 lb 14.4 oz I&O - Last 24 Hours: Intake & Output 07/28/21 07/29/21 07/29/21 22:59 06:59 14:59 Intake Total 1230 900 Output Total 700 675 Balance 530 225 Lab Results Last 24 Hours: Laboratory Results - last 24 hr 07/29/21 07/29/21 Range/Units 06:50 06:50 WBC 5.67 (4.23-9.07) K/mm3 RBC 4.82 (4.63-6.08) M/mm3 Hgb 14.3 (13.7-17.5) gm/dl Hct 42.5 (40.1-51.0) % MCV 88.2 (79.0-92.2) fl MCH 29.7 (25.7-32.2) pg MCHC 33.6 (32.2-35.5) g/dl RDW Std Deviation 46.9 H (35.1-43.9) fL Plt Count 265 (163-337) K/mm3 MPV 11.7 (9.4-12.3) fl Neut % (Auto) 80.6 H (34.0-67.9) % Lymph % (Auto) 12.7 L (21.8-53.1) % [place] % (Auto) 5.8 (5.3-12.2) % Eos % (Auto) 0 L (0.8-7.0) Baso % (Auto) 0.4 (0.1-1.2) % Neut # (Auto) 4.57 (1.78-5.38) K/mm3 Lymph # (Auto) 0.72 L (1.32-3.57) K/mm3 [place] # (Auto) 0.33 (0.30-0.82) K/mm3 Eos # (Auto) 0.00 L (0.04-0.54) K/mm3 Baso # (Auto) 0.02 (0.01-0.08) K/mm3 Manual Slide Review Normal smear Sodium 137 (136-145) mEq/L Potassium 3.8 (3.5-5.1) mEq/L Chloride 103 (98-107) mEq/L Carbon Dioxide 24 (21-32) mEq/L Anion Gap 13.8 (5-15) BUN 48 H (7-18) mg/dL Creatinine 0.9 (0.7-1.3) mg/dL Est Cr Clr Drug Dosing 81.28 mL/min Estimated GFR (MDRD) > 60 (>60) mL/min BUN/Creatinine Ratio 53.3 H (14-18) Glucose 186 H (70-99) mg/dL Calcium 7.7 L (8.5-10.1) mg/dL Phosphorus 3.4 (2.6-4.7) mg/dL Magnesium 2.8 H (1.8-2.4) mg/dL Total Bilirubin 0.6 (0.2-1.0) mg/dL AST 74 H (15-37) U/L ALT 31 (16-63) U/L Alkaline Phosphatase 68 (46-116) U/L C-Reactive Protein 4.7 H* (<1.0) mg/dL Total Protein 6.6 (6.4-8.2) g/dl Albumin 2.6 L (3.4-5.0) g/dl Globulin 4.0 gm/dL Albumin/Globulin Ratio 0.7 L (1-2) Med Orders - Current: Current Medications Acetaminophen (Acetaminophen 325 Mg Tab) 650 mg PO Q4H PRN PRN Reason: Pain (Mild 1-3)/fever Albuterol (Albuterol 6.7 Gm Inhaler) 0 gm INH Q2H PRN PRN Reason: Shortness of Breath Last Admin: 07/28/21 16:36 Dose: 2 puff Documented by: Albuterol/Ipratropium (Albuterol/Ipratropium 3.0-0.5 Mg/3 Ml Neb Soln) 3 ml NEB Q4H PRN PRN Reason: Shortness Of Breath/wheezing Benzonatate (Benzonatate 100 Mg Cap) 200 mg PO Q8H PRN PRN Reason: Cough Dexamethasone (Dexamethasone 4 Mg Tab) 6 mg PO DAILY@1700 [facility] Stop: 08/05/21 17:01 Last Admin: 07/28/21 16:26 Dose: 6 mg Documented by: Enoxaparin Sodium (Enoxaparin 40 Mg/0.4 Ml Syringe) 40 mg SUBCUT DAILY [facility] Last Admin: 07/29/21 09:58 Dose: 40 mg Documented by: Guaifenesin (Guaifenesin 600 Mg Tab.Er) 600 mg PO TID [facility] Last Admin: 07/29/21 09:58 Dose: 600 mg Documented by: Remdesivir 100 mg/ Sodium (Chloride) 100 mls @ 100 mls/hr IV Q24H [facility] Stop: 07/31/21 20:59 Last Admin: 07/28/21 21:13 Dose: 100 mls/hr Documented by: Ondansetron HCl (Ondansetron 4 Mg/2 Ml Sdv) 4 mg IV Q6H PRN PRN Reason: Nausea/Vomiting Polyethylene Glycol (Polyethylene Glycol 3350 Powder 17 Gm Packet) 17 gm PO DAILY PRN PRN Reason: Constipation Last Admin: 07/28/21 11:40 Dose: 17 gm Documented by: Discontinued Medications Dexamethasone (Dexamethasone 10 Mg/Ml Sdv) 6 mg IVPUSH ONETIME ONE Stop: 07/27/21 16:09 Last Admin: 07/27/21 16:20 Dose: 6 mg Documented by: Lactated Ringer's (Ringers, Lactated) 500 mls @ 1,000 mls/hr IV .BOLUS ONE Stop: 07/27/21 17:19 Last Admin: 07/27/21 17:19 Dose: 1,000 mls/hr Documented by: Sodium Chloride (Normal Saline) 100 mls @ 60 mls/hr IV ASDIRECTED [facility] Remdesivir 200 mg/ Sodium (Chloride) 250 mls @ 250 mls/hr IV ONETIME ONE Stop: 07/27/21 20:59 Last Admin: 07/27/21 22:51 Dose: 250 mls/hr Documented by: Tocilizumab 200 mg/Tocilizumab 25 mg/ Tocilizumab 400 mg/ Sodium Chloride 100 mls @ 100 mls/hr IV ONETIME ONE Stop: 07/28/21 11:59 Last Admin: 07/28/21 11:35 Dose: 100 mls/hr Documented by: Influenza Virus Vaccine (Pharmacy To Dose - Influenza Vaccine) 1 each IM ONETIME ONE Stop: 07/28/21 00:46 Influenza Virus Vaccine (Flu Vacc [id number] 36mos Up/Pf 60 Mcg/0.5 Ml Syringe) 60 mcg IM .ONCE ONE Stop: 07/28/21 09:46 Iopamidol (Iopamidol 755 Mg/Ml 100 Ml Bottle) 100 ml IVPUSH ONETIME ONE Stop: 07/27/21 16:53 Last Admin: 07/27/21 17:30 Dose: 100 ml Documented by: Sodium Chloride (Sodium Chloride 0.9% 10 Ml Syringe) 10 ml FLUSH ONETIME ONE Stop: 07/27/21 16:53 Last Admin: 07/27/21 17:30 Dose: 10 ml Documented by: - Exam Quality Assessment: Supplemental Oxygen General: Alert, Oriented HEENT: Pupils Equal, Mucous Membr. Moist/[place] Lungs: Crackles. No: Normal Respiratory Effort (Increased effort and rate) Cardiovascular: Regular Rate, Regular Rhythm GI/Abdominal Exam: Normal Bowel Sounds, Soft, No Distention Skin: Warm, Dry, Intact - Patient Data Lab Results Last 24 hrs: Laboratory Results - last 24 hr 07/29/21 07/29/21 Range/Units 06:50 06:50 WBC 5.67 (4.23-9.07) K/mm3 RBC 4.82 (4.63-6.08) M/mm3 Hgb 14.3 (13.7-17.5) gm/dl Hct 42.5 (40.1-51.0) % MCV 88.2 (79.0-92.2) fl MCH 29.7 (25.7-32.2) pg MCHC 33.6 (32.2-35.5) g/dl RDW Std Deviation 46.9 H (35.1-43.9) fL Plt Count 265 (163-337) K/mm3 MPV 11.7 (9.4-12.3) fl Neut % (Auto) 80.6 H (34.0-67.9) % Lymph % (Auto) 12.7 L (21.8-53.1) % [place] % (Auto) 5.8 (5.3-12.2) % Eos % (Auto) 0 L (0.8-7.0) Baso % (Auto) 0.4 (0.1-1.2) % Neut # (Auto) 4.57 (1.78-5.38) K/mm3 Lymph # (Auto) 0.72 L (1.32-3.57) K/mm3 [place] # (Auto) 0.33 (0.30-0.82) K/mm3 Eos # (Auto) 0.00 L (0.04-0.54) K/mm3 Baso # (Auto) 0.02 (0.01-0.08) K/mm3 Manual Slide Review Normal smear Sodium 137 (136-145) mEq/L Potassium 3.8 (3.5-5.1) mEq/L Chloride 103 (98-107) mEq/L Carbon Dioxide 24 (21-32) mEq/L Anion Gap 13.8 (5-15) BUN 48 H (7-18) mg/dL Creatinine 0.9 (0.7-1.3) mg/dL Est Cr Clr Drug Dosing 81.28 mL/min Estimated GFR (MDRD) > 60 (>60) mL/min BUN/Creatinine Ratio 53.3 H (14-18) Glucose 186 H (70-99) mg/dL Calcium 7.7 L (8.5-10.1) mg/dL Phosphorus 3.4 (2.6-4.7) mg/dL Magnesium 2.8 H (1.8-2.4) mg/dL Total Bilirubin 0.6 (0.2-1.0) mg/dL AST 74 H (15-37) U/L ALT 31 (16-63) U/L Alkaline Phosphatase 68 (46-116) U/L C-Reactive Protein 4.7 H* (<1.0) mg/dL Total Protein 6.6 (6.4-8.2) g/dl Albumin 2.6 L (3.4-5.0) g/dl Globulin 4.0 gm/dL Albumin/Globulin Ratio 0.7 L (1-2) Result Diagrams: 07/29/21 06:50 07/29/21 06:50 Sepsis Event Note - Evaluation Sepsis Screening Result: No Definite Risk - Focused Exam Vital Signs: Vital Signs Temp Pulse Resp BP Pulse Ox Pulse Ox 07/29/21 11:35 98.1 F 79 20 111/63 87 L 07/29/21 10:31 92 L 07/29/21 09:41 98.1 F 70 20 122/65 89 L 07/29/21 04:47 98.2 F 66 18 119/79 90 L - Problem List & Annotations (1) Hypoxia SNOMED Code(s): 053181900 Code(s): R09.02 - HYPOXEMIA Status: Acute Current Visit: Yes (2) Pneumonia due to COVID-19 virus SNOMED Code(s): 627273842289488158 Code(s): U07.1 - COVID-19; J12.82 - PNEUMONIA DUE TO CORONAVIRUS DISEASE 2019 Status: Acute Current Visit: Yes - Problem List Review Problem List Initiated/Reviewed/Updated: Yes - My Orders Last 24 Hours: My Active Orders 07/28/21 15:00 guaiFENesin [Mucinex] 600 mg PO TID 07/28/21 Dinner Regular Diet [DIET] dexAMETHasone 6 mg PO DAILY@1700 07/28/21 20:00 Remdesivir 100 mg Sodium Chloride 0.9% [Normal Saline] 100 ml IV Q24H 07/30/21 05:11 C-REACTIVE PROTEIN [CHEM] AM CBC WITH AUTO DIFF [HEME] AM CMP [COMPREHENSIVE METABOLIC PN,CMP] [CHEM] AM MAGNESIUM [CHEM] AM PHOSPHORUS [CHEM] AM 07/31/21 05:11 C-REACTIVE PROTEIN [CHEM] AM CBC WITH AUTO DIFF [HEME] AM CMP [COMPREHENSIVE METABOLIC PN,CMP] [CHEM] AM MAGNESIUM [CHEM] AM PHOSPHORUS [CHEM] AM 08/01/21 05:11 C-REACTIVE PROTEIN [CHEM] AM CBC WITH AUTO DIFF [HEME] AM CMP [COMPREHENSIVE METABOLIC PN,CMP] [CHEM] AM MAGNESIUM [CHEM] AM PHOSPHORUS [CHEM] AM - Plan Plan:: 61-year-old male with COVID-19 pneumonia. 40+ pack year history. COVID-19 pneumonia Respiratory failure * Tobacco user, 40+ pack year history * Oxygenation in the 70s on presentation * Received first dose of dexamethasone in the emergency department * CT angiogram negative for pulmonary embolism but consistent with COVID-19 pneumonia * Oxygen requirement increased overnight. * High flow nasal cannula 55 L and 55% * WBC 3.77, platelets 221, creatinine decreased to 1.1, BUN 43, glucose 180, CRP 9.0, albumin decreased to 2.7 07/29/2021 Patient has had a marginal improvement in saturations with his high flow setti ngs at 45 L and 60%. CRP has decreased to 4.7. Albumin 2.6. AST slightly elevated at 74. ALT is normal at 31 and alkaline phosphatase 68. Renal function is good with a creatinine of 0.9, but he is having increasing BUN and today it is 48. Unknown significance. Plan * Admit to medical floor on strict isolation * High flow nasal cannula to keep SPO2 between 88 and 94% * Dexamethasone day 3 * Remdesivir day 3 * Received Actemra on 07/28/2021 * Offered nicotine patch, patient refused * Tessalon Perles for cough * RT, I-S * Follow CBC, CMP, mag, Phos, CRP. Periodic D-dimer * VTE prophylaxis with Lovenox * CODE STATUS: Full code
[2021-07-29] MEDS: Albuterol 6.7 GM Inhaler INH PRN ×2 (14:47→21:04)
[2021-07-29] MEDS: Dexamethasone 4 MG Tab PO SCH (16:05)
[2021-07-29] MEDS: Polyethylene Glycol 3350 Powder 17 GM Packet PO PRN (16:06)
[2021-07-29] MEDS: REMDESIVIR 100 MG in Sodium Chloride 0.9% 100 ML IV SCH (20:47)
[2021-07-30] MEDS: guaiFENesin 600 MG Tab.ER PO SCH ×3 (08:42→20:59)
[2021-07-30] MEDS: Enoxaparin 40 MG/0.4 ML Syringe SUBCUT SCH (08:42)
[2021-07-30] MEDS: Albuterol 6.7 GM Inhaler INH PRN ×2 (09:00→21:30)
--- NOTE | 2021-07-30 10:07 | PCM.PN ---
- General Info Date of Service: 07/30/21 Admission Dx/Problem (Free Text): Admission Diagnosis/Problem Admission Diagnosis/Problem Hypoxia Subjective Update: 61-year-old male with improving oxygenation and support. Appetite is also improving. He is down to 45 L and 70% FiO2. Functional Status: Reports: Pain Controlled - Review of Systems General: Reports: No Symptoms HEENT: Reports: No Symptoms Pulmonary: Reports: No Symptoms Cardiovascular: Reports: No Symptoms Musculoskeletal: Reports: No Symptoms Neurological: Reports: No Symptoms - Patient Data Vitals - Most Recent: Last Vital Signs Temp 97.7 F 07/30/21 07:58 Pulse 68 07/30/21 07:58 Resp 20 07/30/21 07:58 BP 104/62 07/30/21 07:58 Pulse Ox 91 L 07/30/21 09:01 Weight - Most Recent: 169 lb 1.6 oz I&O - Last 24 Hours: Intake & Output 07/29/21 07/30/21 07/30/21 22:59 06:59 14:59 Intake Total 1300 900 Output Total 600 775 Balance 700 125 Lab Results Last 24 Hours: Laboratory Results - last 24 hr 07/30/21 07/30/21 Range/Units 07:05 07:05 WBC 6.08 (4.23-9.07) K/mm3 RBC 4.62 L (4.63-6.08) M/mm3 Hgb 13.7 (13.7-17.5) gm/dl Hct 41.2 (40.1-51.0) % MCV 89.2 (79.0-92.2) fl MCH 29.7 (25.7-32.2) pg MCHC 33.3 (32.2-35.5) g/dl RDW Std Deviation 47.3 H (35.1-43.9) fL Plt Count 294 (163-337) K/mm3 MPV 11.3 (9.4-12.3) fl Neut % (Auto) 80.8 H (34.0-67.9) % Lymph % (Auto) 10.4 L (21.8-53.1) % Ward % (Auto) 8.2 (5.3-12.2) % Eos % (Auto) 0 L (0.8-7.0) Baso % (Auto) 0.3 (0.1-1.2) % Neut # (Auto) 4.91 (1.78-5.38) K/mm3 Lymph # (Auto) 0.63 L (1.32-3.57) K/mm3 Ward # (Auto) 0.50 (0.30-0.82) K/mm3 Eos # (Auto) 0.00 L (0.04-0.54) K/mm3 Baso # (Auto) 0.02 (0.01-0.08) K/mm3 Manual Slide Review Abnormal smear Sodium 139 (136-145) mEq/L Potassium 4.4 (3.5-5.1) mEq/L Chloride 106 (98-107) mEq/L Carbon Dioxide 25 (21-32) mEq/L Anion Gap 12.4 (5-15) BUN 33 H (7-18) mg/dL Creatinine 0.7 (0.7-1.3) mg/dL Est Cr Clr Drug Dosing 104.50 mL/min Estimated GFR (MDRD) > 60 (>60) mL/min BUN/Creatinine Ratio 47.1 H (14-18) Glucose 188 H (70-99) mg/dL Calcium 7.9 L (8.5-10.1) mg/dL Phosphorus 3.3 (2.6-4.7) mg/dL Magnesium 2.4 (1.8-2.4) mg/dL Total Bilirubin 0.7 (0.2-1.0) mg/dL AST 80 H (15-37) U/L ALT 47 (16-63) U/L Alkaline Phosphatase 63 (46-116) U/L C-Reactive Protein 2.3 H* (<1.0) mg/dL Total Protein 6.1 L (6.4-8.2) g/dl Albumin 2.5 L (3.4-5.0) g/dl Globulin 3.6 gm/dL Albumin/Globulin Ratio 0.7 L (1-2) Med Orders - Current: Current Medications Acetaminophen (Acetaminophen 325 Mg Tab) 650 mg PO Q4H PRN PRN Reason: Pain (Mild 1-3)/fever Albuterol (Albuterol 6.7 Gm Inhaler) 0 gm INH Q2H PRN PRN Reason: Shortness of Breath Last Admin: 07/30/21 09:00 Dose: 2 puff Documented by: Albuterol/Ipratropium (Albuterol/Ipratropium 3.0-0.5 Mg/3 Ml Neb Soln) 3 ml NEB Q4H PRN PRN Reason: Shortness Of Breath/wheezing Benzonatate (Benzonatate 100 Mg Cap) 200 mg PO Q8H PRN PRN Reason: Cough Dexamethasone (Dexamethasone 4 Mg Tab) 6 mg PO DAILY@1700 [facility] Stop: 08/05/21 17:01 Last Admin: 07/29/21 16:05 Dose: 6 mg Documented by: Enoxaparin Sodium (Enoxaparin 40 Mg/0.4 Ml Syringe) 40 mg SUBCUT DAILY [facility] Last Admin: 07/30/21 08:42 Dose: 40 mg Documented by: Guaifenesin (Guaifenesin 600 Mg Tab.Er) 600 mg PO TID [facility] Last Admin: 07/30/21 08:42 Dose: 600 mg Documented by: Remdesivir 100 mg/ Sodium (Chloride) 100 mls @ 100 mls/hr IV Q24H [facility] Stop: 07/31/21 20:59 Last Admin: 07/29/21 20:47 Dose: 100 mls/hr Documented by: Ondansetron HCl (Ondansetron 4 Mg/2 Ml Sdv) 4 mg IV Q6H PRN PRN Reason: Nausea/Vomiting Polyethylene Glycol (Polyethylene Glycol 3350 Powder 17 Gm Packet) 17 gm PO DAILY PRN PRN Reason: Constipation Last Admin: 07/29/21 16:06 Dose: 17 gm Documented by: Discontinued Medications Dexamethasone (Dexamethasone 10 Mg/Ml Sdv) 6 mg IVPUSH ONETIME ONE Stop: 07/27/21 16:09 Last Admin: 07/27/21 16:20 Dose: 6 mg Documented by: Lactated Ringer's (Ringers, Lactated) 500 mls @ 1,000 mls/hr IV .BOLUS ONE Stop: 07/27/21 17:19 Last Admin: 07/27/21 17:19 Dose: 1,000 mls/hr Documented by: Sodium Chloride (Normal Saline) 100 mls @ 60 mls/hr IV ASDIRECTED [facility] Remdesivir 200 mg/ Sodium (Chloride) 250 mls @ 250 mls/hr IV ONETIME ONE Stop: 07/27/21 20:59 Last Admin: 07/27/21 22:51 Dose: 250 mls/hr Documented by: Tocilizumab 200 mg/Tocilizumab 25 mg/ Tocilizumab 400 mg/ Sodium Chloride 100 mls @ 100 mls/hr IV ONETIME ONE Stop: 07/28/21 11:59 Last Admin: 07/28/21 11:35 Dose: 100 mls/hr Documented by: Influenza Virus Vaccine (Pharmacy To Dose - Influenza Vaccine) 1 each IM ONETIME ONE Stop: 07/28/21 00:46 Influenza Virus Vaccine (Flu Vacc De6904-15 36mos Up/Pf 60 Mcg/0.5 Ml Syringe) 60 mcg IM .ONCE ONE Stop: 07/28/21 09:46 Iopamidol (Iopamidol 755 Mg/Ml 100 Ml Bottle) 100 ml IVPUSH ONETIME ONE Stop: 07/27/21 16:53 Last Admin: 07/27/21 17:30 Dose: 100 ml Documented by: Sodium Chloride (Sodium Chloride 0.9% 10 Ml Syringe) 10 ml FLUSH ONETIME ONE Stop: 07/27/21 16:53 Last Admin: 07/27/21 17:30 Dose: 10 ml Documented by: - Exam Quality Assessment: Supplemental Oxygen General: Alert, Oriented HEENT: Pupils Equal Neck: Supple Lungs: Normal Respiratory Effort, Crackles Cardiovascular: Regular Rate, Regular Rhythm GI/Abdominal Exam: Normal Bowel Sounds, Soft, No Distention Extremities: Normal Inspection, Non-Tender, No Pedal Edema, Normal Capillary Re fill Skin: Warm, Dry, Intact Neurological: No New Focal Deficit Psy/Mental Status: Alert, Normal Affect, Normal Mood - Patient Data Lab Results Last 24 hrs: Laboratory Results - last 24 hr 07/30/21 07/30/21 Range/Units 07:05 07:05 WBC 6.08 (4.23-9.07) K/mm3 RBC 4.62 L (4.63-6.08) M/mm3 Hgb 13.7 (13.7-17.5) gm/dl Hct 41.2 (40.1-51.0) % MCV 89.2 (79.0-92.2) fl MCH 29.7 (25.7-32.2) pg MCHC 33.3 (32.2-35.5) g/dl RDW Std Deviation 47.3 H (35.1-43.9) fL Plt Count 294 (163-337) K/mm3 MPV 11.3 (9.4-12.3) fl Neut % (Auto) 80.8 H (34.0-67.9) % Lymph % (Auto) 10.4 L (21.8-53.1) % Ward % (Auto) 8.2 (5.3-12.2) % Eos % (Auto) 0 L (0.8-7.0) Baso % (Auto) 0.3 (0.1-1.2) % Neut # (Auto) 4.91 (1.78-5.38) K/mm3 Lymph # (Auto) 0.63 L (1.32-3.57) K/mm3 Ward # (Auto) 0.50 (0.30-0.82) K/mm3 Eos # (Auto) 0.00 L (0.04-0.54) K/mm3 Baso # (Auto) 0.02 (0.01-0.08) K/mm3 Manual Slide Review Abnormal smear Sodium 139 (136-145) mEq/L Potassium 4.4 (3.5-5.1) mEq/L Chloride 106 (98-107) mEq/L Carbon Dioxide 25 (21-32) mEq/L Anion Gap 12.4 (5-15) BUN 33 H (7-18) mg/dL Creatinine 0.7 (0.7-1.3) mg/dL Est Cr Clr Drug Dosing 104.50 mL/min Estimated GFR (MDRD) > 60 (>60) mL/min BUN/Creatinine Ratio 47.1 H (14-18) Glucose 188 H (70-99) mg/dL Calcium 7.9 L (8.5-10.1) mg/dL Phosphorus 3.3 (2.6-4.7) mg/dL Magnesium 2.4 (1.8-2.4) mg/dL Total Bilirubin 0.7 (0.2-1.0) mg/dL AST 80 H (15-37) U/L ALT 47 (16-63) U/L Alkaline Phosphatase 63 (46-116) U/L C-Reactive Protein 2.3 H* (<1.0) mg/dL Total Protein 6.1 L (6.4-8.2) g/dl Albumin 2.5 L (3.4-5.0) g/dl Globulin 3.6 gm/dL Albumin/Globulin Ratio 0.7 L (1-2) Result Diagrams: 07/30/21 07:05 07/30/21 07:05 Sepsis Event Note - Evaluation Sepsis Screening Result: No Definite Risk - Focused Exam Vital Signs: Vital Signs Temp Pulse Resp BP Pulse Ox Pulse Ox 07/30/21 09:01 91 L 07/30/21 07:58 97.7 F 68 20 104/62 87 L 07/30/21 04:19 93 L 07/30/21 04:17 98.1 F 63 14 114/78 89 L - Problem List & Annotations (1) Hypoxia SNOMED Code(s): 708188827 Code(s): R09.02 - HYPOXEMIA Status: Acute Current Visit: Yes (2) Pneumonia due to COVID-19 virus SNOMED Code(s): 624972985798111486 Code(s): U07.1 - COVID-19; J12.82 - PNEUMONIA DUE TO CORONAVIRUS DISEASE 2019 Status: Acute Current Visit: Yes - Problem List Review Problem List Initiated/Reviewed/Updated: Yes - My Orders Last 24 Hours: My Active Orders 07/31/21 05:11 C-REACTIVE PROTEIN [CHEM] AM CBC WITH AUTO DIFF [HEME] AM CMP [COMPREHENSIVE METABOLIC PN,CMP] [CHEM] AM MAGNESIUM [CHEM] AM PHOSPHORUS [CHEM] AM 08/01/21 05:11 C-REACTIVE PROTEIN [CHEM] AM CBC WITH AUTO DIFF [HEME] AM CMP [COMPREHENSIVE METABOLIC PN,CMP] [CHEM] AM MAGNESIUM [CHEM] AM PHOSPHORUS [CHEM] AM - Plan Plan:: 61-year-old male with COVID-19 pneumonia. 40+ pack year history. COVID-19 pneumonia Respiratory failure * Tobacco user, 40+ pack year history * Oxygenation in the 70s on presentation * Received first dose of dexamethasone in the emergency department * CT angiogram negative for pulmonary embolism but consistent with COVID-19 pneumonia * Oxygen requirement increased overnight. * High flow nasal cannula 55 L and 55% * WBC 3.77, platelets 221, creatinine decreased to 1.1, BUN 43, glucose 180, CRP 9.0, albumin decreased to 2.7 07/29/2021 Patient has had a marginal improvement in saturations with his high flow sett ings at 45 L and 60%. CRP has decreased to 4.7. Albumin 2.6. AST slightly elevated at 74. ALT is normal at 31 and alkaline phosphatase 68. Renal function is good with a creatinine of 0.9, but he is having increasing BUN and today it is 48. Unknown significance. 07/30/2021 Patient continues with high flow nasal cannula. He states he is starting to feel better and his C-reactive protein has significantly decreased to 2.3. Unfortunately he continues on significant amount of support for oxygenation.AST has increased to 80, but ALT is still normal at 43. Albumin continues to decrease and today is 2.5. Plan * Admit to medical floor on strict isolation * High flow nasal cannula to keep SPO2 between 88 and 94% * Dexamethasone day 4 * Remdesivir day 4 * Received Actemra on 07/28/2021 * Offered nicotine patch, patient refused * Tessalon Perles for cough * RT, I-S * Follow CBC, CMP, mag, Phos, CRP. Periodic D-dimer * VTE prophylaxis with Lovenox * CODE STATUS: Full code
[2021-07-30] MEDS: Dexamethasone 4 MG Tab PO SCH (17:45)
[2021-07-30] MEDS: REMDESIVIR 100 MG in Sodium Chloride 0.9% 100 ML IV SCH (20:59)
[2021-07-31] MEDS: Enoxaparin 40 MG/0.4 ML Syringe SUBCUT SCH (07:59)
[2021-07-31] MEDS: guaiFENesin 600 MG Tab.ER PO SCH ×3 (08:00→21:05)
[2021-07-31] MEDS: Albuterol 6.7 GM Inhaler INH PRN ×3 (09:05→20:34)
--- NOTE | 2021-07-31 14:29 | PCM.PN ---
- General Info Date of Service: 07/31/21 Admission Dx/Problem (Free Text): Admission Diagnosis/Problem Admission Diagnosis/Problem Hypoxia Subjective Update: 61-year-old male with improving oxygenation and support. Rikki states that he is feeling better and less short of breath. Current high flow nasal cannula is 45 L at 60% FiO2. Functional Status: Reports: Pain Controlled - Review of Systems General: Reports: No Symptoms HEENT: Reports: No Symptoms Pulmonary: Reports: No Symptoms Cardiovascular: Reports: No Symptoms Gastrointestinal: Reports: No Symptoms Musculoskeletal: Reports: No Symptoms - Patient Data Vitals - Most Recent: Last Vital Signs Temp 98.1 F 07/31/21 10:45 Pulse 71 07/31/21 10:45 Resp 20 07/31/21 10:45 BP 108/88 07/31/21 10:45 Pulse Ox 89 L 07/31/21 10:45 Weight - Most Recent: 168 lb 14.4 oz I&O - Last 24 Hours: Intake & Output 07/30/21 07/31/21 07/31/21 22:59 06:59 14:59 Intake Total 687 900 0 Output Total 800 650 Balance -113 250 0 Lab Results Last 24 Hours: Laboratory Results - last 24 hr 07/31/21 07/31/21 Range/Units 06:55 06:55 WBC 5.78 (4.23-9.07) K/mm3 RBC 4.57 L (4.63-6.08) M/mm3 Hgb 13.9 (13.7-17.5) gm/dl Hct 41.5 (40.1-51.0) % MCV 90.8 (79.0-92.2) fl MCH 30.4 (25.7-32.2) pg MCHC 33.5 (32.2-35.5) g/dl RDW Std Deviation 47.4 H (35.1-43.9) fL Plt Count 286 (163-337) K/mm3 MPV 11.7 (9.4-12.3) fl Neut % (Auto) 78.6 H (34.0-67.9) % Lymph % (Auto) 12.1 L (21.8-53.1) % Polk % (Auto) 8.8 (5.3-12.2) % Eos % (Auto) 0 L (0.8-7.0) Baso % (Auto) 0.2 (0.1-1.2) % Neut # (Auto) 4.54 (1.78-5.38) K/mm3 Lymph # (Auto) 0.70 L (1.32-3.57) K/mm3 [place]k # (Auto) 0.51 (0.30-0.82) K/mm3 Eos # (Auto) 0.00 L (0.04-0.54) K/mm3 Baso # (Auto) 0.01 (0.01-0.08) K/mm3 Manual Slide Review Abnormal smear Sodium 139 (136-145) mEq/L Potassium 4.6 (3.5-5.1) mEq/L Chloride 106 (98-107) mEq/L Carbon Dioxide 24 (21-32) mEq/L Anion Gap 13.6 (5-15) BUN 23 H (7-18) mg/dL Creatinine 0.7 (0.7-1.3) mg/dL Est Cr Clr Drug Dosing 104.50 mL/min Estimated GFR (MDRD) > 60 (>60) mL/min BUN/Creatinine Ratio 32.9 H (14-18) Glucose 142 H (70-99) mg/dL Calcium 8.0 L (8.5-10.1) mg/dL Phosphorus 3.4 (2.6-4.7) mg/dL Magnesium 2.1 (1.8-2.4) mg/dL Total Bilirubin 0.7 (0.2-1.0) mg/dL AST 175 H (15-37) U/L ALT 113 H (16-63) U/L Alkaline Phosphatase 64 (46-116) U/L C-Reactive Protein 1.1 H* (<1.0) mg/dL Total Protein 6.0 L (6.4-8.2) g/dl Albumin 2.6 L (3.4-5.0) g/dl Globulin 3.4 gm/dL Albumin/Globulin Ratio 0.8 L (1-2) Med Orders - Current: Current Medications Acetaminophen (Acetaminophen 325 Mg Tab) 650 mg PO Q4H PRN PRN Reason: Pain (Mild 1-3)/fever Albuterol (Albuterol 6.7 Gm Inhaler) 0 gm INH Q2H PRN PRN Reason: Shortness of Breath Last Admin: 07/31/21 09:05 Dose: 2 puff Documented by: Albuterol/Ipratropium (Albuterol/Ipratropium 3.0-0.5 Mg/3 Ml Neb Soln) 3 ml NEB Q4H PRN PRN Reason: Shortness Of Breath/wheezing Benzonatate (Benzonatate 100 Mg Cap) 200 mg PO Q8H PRN PRN Reason: Cough Dexamethasone (Dexamethasone 4 Mg Tab) 6 mg PO DAILY@1700 [facility] Stop: 08/05/21 17:01 Last Admin: 07/30/21 17:45 Dose: 6 mg Documented by: Enoxaparin Sodium (Enoxaparin 40 Mg/0.4 Ml Syringe) 40 mg SUBCUT DAILY [facility] Last Admin: 07/31/21 07:59 Dose: 40 mg Documented by: Guaifenesin (Guaifenesin 600 Mg Tab.Er) 600 mg PO TID [facility] Last Admin: 07/31/21 08:00 Dose: 600 mg Documented by: Remdesivir 100 mg/ Sodium (Chloride) 100 mls @ 100 mls/hr IV Q24H [facility] Stop: 07/31/21 20:59 Last Admin: 07/30/21 20:59 Dose: 100 mls/hr Documented by: Ondansetron HCl (Ondansetron 4 Mg/2 Ml Sdv) 4 mg IV Q6H PRN PRN Reason: Nausea/Vomiting Polyethylene Glycol (Polyethylene Glycol 3350 Powder 17 Gm Packet) 17 gm PO DAILY PRN PRN Reason: Constipation Last Admin: 07/29/21 16:06 Dose: 17 gm Documented by: Discontinued Medications Dexamethasone (Dexamethasone 10 Mg/Ml Sdv) 6 mg IVPUSH ONETIME ONE Stop: 07/27/21 16:09 Last Admin: 07/27/21 16:20 Dose: 6 mg Documented by: Lactated Ringer's (Ringers, Lactated) 500 mls @ 1,000 mls/hr IV .BOLUS ONE Stop: 07/27/21 17:19 Last Admin: 07/27/21 17:19 Dose: 1,000 mls/hr Documented by: Sodium Chloride (Normal Saline) 100 mls @ 60 mls/hr IV ASDIRECTED [facility] Remdesivir 200 mg/ Sodium (Chloride) 250 mls @ 250 mls/hr IV ONETIME ONE Stop: 07/27/21 20:59 Last Admin: 07/27/21 22:51 Dose: 250 mls/hr Documented by: Tocilizumab 200 mg/Tocilizumab 25 mg/ Tocilizumab 400 mg/ Sodium Chloride 100 mls @ 100 mls/hr IV ONETIME ONE Stop: 07/28/21 11:59 Last Admin: 07/28/21 11:35 Dose: 100 mls/hr Documented by: Influenza Virus Vaccine (Pharmacy To Dose - Influenza Vaccine) 1 each IM ONETIME ONE Stop: 07/28/21 00:46 Influenza Virus Vaccine (Flu Vacc Ac0474-07 36mos Up/Pf 60 Mcg/0.5 Ml Syringe) 60 mcg IM .ONCE ONE Stop: 07/28/21 09:46 Iopamidol (Iopamidol 755 Mg/Ml 100 Ml Bottle) 100 ml IVPUSH ONETIME ONE Stop: 07/27/21 16:53 Last Admin: 07/27/21 17:30 Dose: 100 ml Documented by: Sodium Chloride (Sodium Chloride 0.9% 10 Ml Syringe) 10 ml FLUSH ONETIME ONE Stop: 07/27/21 16:53 Last Admin: 07/27/21 17:30 Dose: 10 ml Documented by: - Exam Quality Assessment: Supplemental Oxygen General: Alert, Oriented HEENT: Pupils Equal, Mucous Membr. Moist/[place] Neck: Supple Lungs: Crackles (Bibasilar and midlung summers). No: Normal Respiratory Effort (Mildly increased rate) Cardiovascular: Regular Rate, Regular Rhythm GI/Abdominal Exam: Normal Bowel Sounds, Soft, Non-Tender, No Distention Extremities: Normal Inspection, Non-Tender, No Pedal Edema, Normal Capillary Refill Skin: Warm, Dry, Intact Neurological: No New Focal Deficit Psy/Mental Status: Alert, Normal Affect, Normal Mood - Patient Data Lab Results Last 24 hrs: Laboratory Results - last 24 hr 07/31/21 07/31/21 Range/Units 06:55 06:55 WBC 5.78 (4.23-9.07) K/mm3 RBC 4.57 L (4.63-6.08) M/mm3 Hgb 13.9 (13.7-17.5) gm/dl Hct 41.5 (40.1-51.0) % MCV 90.8 (79.0-92.2) fl MCH 30.4 (25.7-32.2) pg MCHC 33.5 (32.2-35.5) g/dl RDW Std Deviation 47.4 H (35.1-43.9) fL Plt Count 286 (163-337) K/mm3 MPV 11.7 (9.4-12.3) fl Neut % (Auto) 78.6 H (34.0-67.9) % Lymph % (Auto) 12.1 L (21.8-53.1) % Polk % (Auto) 8.8 (5.3-12.2) % Eos % (Auto) 0 L (0.8-7.0) Baso % (Auto) 0.2 (0.1-1.2) % Neut # (Auto) 4.54 (1.78-5.38) K/mm3 Lymph # (Auto) 0.70 L (1.32-3.57) K/mm3 Polk # (Auto) 0.51 (0.30-0.82) K/mm3 Eos # (Auto) 0.00 L (0.04-0.54) K/mm3 Baso # (Auto) 0.01 (0.01-0.08) K/mm3 Manual Slide Review Abnormal smear Sodium 139 (136-145) mEq/L Potassium 4.6 (3.5-5.1) mEq/L Chloride 106 (98-107) mEq/L Carbon Dioxide 24 (21-32) mEq/L Anion Gap 13.6 (5-15) BUN 23 H (7-18) mg/dL Creatinine 0.7 (0.7-1.3) mg/dL Est Cr Clr Drug Dosing 104.50 mL/min Estimated GFR (MDRD) > 60 (>60) mL/min BUN/Creatinine Ratio 32.9 H (14-18) Glucose 142 H (70-99) mg/dL Calcium 8.0 L (8.5-10.1) mg/dL Phosphorus 3.4 (2.6-4.7) mg/dL Magnesium 2.1 (1.8-2.4) mg/dL Total Bilirubin 0.7 (0.2-1.0) mg/dL AST 175 H (15-37) U/L ALT 113 H (16-63) U/L Alkaline Phosphatase 64 (46-116) U/L C-Reactive Protein 1.1 H* (<1.0) mg/dL Total Protein 6.0 L (6.4-8.2) g/dl Albumin 2.6 L (3.4-5.0) g/dl Globulin 3.4 gm/dL Albumin/Globulin Ratio 0.8 L (1-2) Result Diagrams: 07/31/21 06:55 07/31/21 06:55 Sepsis Event Note - Evaluation Sepsis Screening Result: No Definite Risk - Focused Exam Vital Signs: Vital Signs Temp Pulse Resp BP Pulse Ox Pulse Ox 07/31/21 10:45 98.1 F 71 20 108/88 89 L 07/31/21 09:06 93 L 07/31/21 07:56 97.9 F 59 L 16 114/62 92 L 07/31/21 04:45 98.1 F 61 15 122/72 94 L - Problem List & Annotations (1) Hypoxia SNOMED Code(s): 223362287 Code(s): R09.02 - HYPOXEMIA Status: Acute Current Visit: Yes (2) Pneumonia due to COVID-19 virus SNOMED Code(s): 237625901097603906 Code(s): U07.1 - COVID-19; J12.82 - PNEUMONIA DUE TO CORONAVIRUS DISEASE 2019 Status: Acute Current Visit: Yes - Problem List Review Problem List Initiated/Reviewed/Updated: Yes - My Orders Last 24 Hours: My Active Orders 08/01/21 05:11 C-REACTIVE PROTEIN [CHEM] AM CBC WITH AUTO DIFF [HEME] AM CMP [COMPREHENSIVE METABOLIC PN,CMP] [CHEM] AM MAGNESIUM [CHEM] AM PHOSPHORUS [CHEM] AM - Plan Plan:: 61-year-old male with COVID-19 pneumonia. 40+ pack year history. COVID-19 pneumonia Respiratory failure * Tobacco user, 40+ pack year history * Oxygenation in the 70s on presentation * Received first dose of dexamethasone in the emergency department * CT angiogram negative for pulmonary embolism but consistent with COVID-19 pneumonia * Oxygen requirement increased overnight. * High flow nasal cannula 55 L and 55% * WBC 3.77, platelets 221, creatinine decreased to 1.1, BUN 43, glucose 180, CRP 9.0, albumin decreased to 2.7 07/29/2021 Patient has had a marginal improvement in saturations with his high flow settings at 45 L and 60%. CRP has decreased to 4.7. Albumin 2.6. AST slightly elevated at 74. ALT is normal at 31 and alkaline phosphatase 68. Renal function is good with a creatinine of 0.9, but he is having increasing BUN and today it is 48. Unknown significance. 07/30/2021 Patient continues with high flow nasal cannula. He states he is starting to feel better and his C-reactive protein has significantly decreased to 2.3. Unfortunately he continues on significant amount of support for oxygenation.AST has increased to 80, but ALT is still normal at 43. Albumin continues to decrease and today is 2.5. 07/31/2021 High flow nasal cannula at 45 and 60%. Continue to wean as tolerated. Remdesivir will be completed today and he will receive the fifth dose of dexamet hasone. CRP is down to 1.1 and albumin is 2.6. AST has increased to 175 and ALT is 113. Both are still under the limits for remdesivir. Plan * Admit to medical floor on strict isolation * High flow nasal cannula to keep SPO2 between 88 and 94%. Continue to try to wean * Dexamethasone day 5 * Remdesivir day 5 of 5 * Received Actemra on 07/28/2021 * Offered nicotine patch, patient refused * Emily Robles for cough * RT, I-S, albuterol, duo nebs, and other Covid specific respiratory care * Follow CBC, CMP, mag, Phos, CRP. Periodic D-dimer * VTE prophylaxis with Lovenox * CODE STATUS: Full code
[2021-07-31] MEDS: Dexamethasone 4 MG Tab PO SCH (16:00)
[2021-07-31] MEDS: REMDESIVIR 100 MG in Sodium Chloride 0.9% 100 ML IV SCH (21:00)
[2021-08-01] MEDS: Albuterol 6.7 GM Inhaler INH PRN ×2 (09:44→21:10)
[2021-08-01] MEDS: guaiFENesin 600 MG Tab.ER PO SCH ×3 (10:35→21:08)
[2021-08-01] MEDS: Enoxaparin 40 MG/0.4 ML Syringe SUBCUT SCH (10:35)
--- NOTE | 2021-08-01 14:34 | PCM.PN ---
- General Info Date of Service: 08/01/21 Admission Dx/Problem (Free Text): Admission Diagnosis/Problem Admission Diagnosis/Problem Hypoxia Subjective Update: 61-year-old male with Covid pneumonia. He has no new complaints today. Functional Status: Reports: Pain Controlled - Review of Systems General: Reports: No Symptoms HEENT: Reports: No Symptoms Pulmonary: Reports: No Symptoms Cardiovascular: Reports: No Symptoms Gastrointestinal: Reports: No Symptoms Musculoskeletal: Reports: No Symptoms - Patient Data Vitals - Most Recent: Last Vital Signs Temp 98.1 F 08/01/21 04:33 Pulse 63 08/01/21 04:33 Resp 18 08/01/21 04:33 BP 128/82 08/01/21 04:33 Pulse Ox 91 L 08/01/21 14:00 Weight - Most Recent: 170 lb 4.8 oz I&O - Last 24 Hours: Intake & Output 07/31/21 08/01/21 08/01/21 22:59 06:59 14:59 Intake Total 960 250 Output Total 600 450 Balance 360 -200 Lab Results Last 24 Hours: Laboratory Results - last 24 hr 08/01/21 08/01/21 Range/Units 06:25 06:25 WBC 7.19 (4.23-9.07) K/mm3 RBC 4.88 (4.63-6.08) M/mm3 Hgb 14.4 (13.7-17.5) gm/dl Hct 43.4 (40.1-51.0) % MCV 88.9 (79.0-92.2) fl MCH 29.5 (25.7-32.2) pg MCHC 33.2 (32.2-35.5) g/dl RDW Std Deviation 46.6 H (35.1-43.9) fL Plt Count 261 (163-337) K/mm3 MPV 11.2 (9.4-12.3) fl Neut % (Auto) 81.4 H (34.0-67.9) % Lymph % (Auto) 11.3 L (21.8-53.1) % [place] % (Auto) 6.5 (5.3-12.2) % Eos % (Auto) 0.1 L (0.8-7.0) Baso % (Auto) 0.3 (0.1-1.2) % Neut # (Auto) 5.85 H (1.78-5.38) K/mm3 Lymph # (Auto) 0.81 L (1.32-3.57) K/mm3 [place] # (Auto) 0.47 (0.30-0.82) K/mm3 Eos # (Auto) 0.01 L (0.04-0.54) K/mm3 Baso # (Auto) 0.02 (0.01-0.08) K/mm3 Manual Slide Review Abnormal smear Sodium 138 (136-145) mEq/L Potassium 4.8 (3.5-5.1) mEq/L Chloride 105 (98-107) mEq/L Carbon Dioxide 23 (21-32) mEq/L Anion Gap 14.8 (5-15) BUN 19 H (7-18) mg/dL Creatinine 0.7 (0.7-1.3) mg/dL Est Cr Clr Drug Dosing 104.50 mL/min Estimated GFR (MDRD) > 60 (>60) mL/min BUN/Creatinine Ratio 27.1 H (14-18) Glucose 110 H (70-99) mg/dL Calcium 8.0 L (8.5-10.1) mg/dL Phosphorus 3.5 (2.6-4.7) mg/dL Magnesium 2.0 (1.8-2.4) mg/dL Total Bilirubin 0.7 (0.2-1.0) mg/dL AST 87 H (15-37) U/L ALT 98 H (16-63) U/L Alkaline Phosphatase 68 (46-116) U/L C-Reactive Protein 0.5 (<1.0) mg/dL Total Protein 6.0 L (6.4-8.2) g/dl Albumin 2.7 L (3.4-5.0) g/dl Globulin 3.3 gm/dL Albumin/Globulin Ratio 0.8 L (1-2) Med Orders - Current: Current Medications Acetaminophen (Acetaminophen 325 Mg Tab) 650 mg PO Q4H PRN PRN Reason: Pain (Mild 1-3)/fever Albuterol (Albuterol 6.7 Gm Inhaler) 0 gm INH Q2H PRN PRN Reason: Shortness of Breath Last Admin: 08/01/21 09:44 Dose: 2 puff Documented by: Albuterol/Ipratropium (Albuterol/Ipratropium 3.0-0.5 Mg/3 Ml Neb Soln) 3 ml NEB Q4H PRN PRN Reason: Shortness Of Breath/wheezing Benzonatate (Benzonatate 100 Mg Cap) 200 mg PO Q8H PRN PRN Reason: Cough Dexamethasone (Dexamethasone 4 Mg Tab) 6 mg PO DAILY@1700 BRIDGER Stop: 08/05/21 17:01 Last Admin: 07/31/21 16:00 Dose: 6 mg Documented by: Enoxaparin Sodium (Enoxaparin 40 Mg/0.4 Ml Syringe) 40 mg SUBCUT DAILY [facility] Last Admin: 08/01/21 10:35 Dose: 40 mg Documented by: Guaifenesin (Guaifenesin 600 Mg Tab.Er) 600 mg PO TID [facility] Last Admin: 08/01/21 10:35 Dose: 600 mg Documented by: Ondansetron HCl (Ondansetron 4 Mg/2 Ml Sdv) 4 mg IV Q6H PRN PRN Reason: Nausea/Vomiting Polyethylene Glycol (Polyethylene Glycol 3350 Powder 17 Gm Packet) 17 gm PO DAILY PRN PRN Reason: Constipation Last Admin: 07/29/21 16:06 Dose: 17 gm Documented by: Discontinued Medications Dexamethasone (Dexamethasone 10 Mg/Ml Sdv) 6 mg IVPUSH ONETIME ONE Stop: 07/27/21 16:09 Last Admin: 07/27/21 16:20 Dose: 6 mg Documented by: Lactated Ringer's (Ringers, Lactated) 500 mls @ 1,000 mls/hr IV .BOLUS ONE Stop: 07/27/21 17:19 Last Admin: 07/27/21 17:19 Dose: 1,000 mls/hr Documented by: Sodium Chloride (Normal Saline) 100 mls @ 60 mls/hr IV ASDIRECTED [facility] Remdesivir 200 mg/ Sodium (Chloride) 250 mls @ 250 mls/hr IV ONETIME ONE Stop: 07/27/21 20:59 Last Admin: 07/27/21 22:51 Dose: 250 mls/hr Documented by: Remdesivir 100 mg/ Sodium (Chloride) 100 mls @ 100 mls/hr IV Q24H BRIDGER Stop: 07/31/21 20:59 Last Admin: 07/31/21 21:00 Dose: 100 mls/hr Documented by: Tocilizumab 200 mg/Tocilizumab 25 mg/ Tocilizumab 400 mg/ Sodium Chloride 100 mls @ 100 mls/hr IV ONETIME ONE Stop: 07/28/21 11:59 Last Admin: 07/28/21 11:35 Dose: 100 mls/hr Documented by: Influenza Virus Vaccine (Pharmacy To Dose - Influenza Vaccine) 1 each IM ONETIME ONE Stop: 07/28/21 00:46 Influenza Virus Vaccine (Flu Vacc [id number] 36mos Up/Pf 60 Mcg/0.5 Ml Syringe) 60 mcg IM .ONCE ONE Stop: 07/28/21 09:46 Iopamidol (Iopamidol 755 Mg/Ml 100 Ml Bottle) 100 ml IVPUSH ONETIME ONE Stop: 07/27/21 16:53 Last Admin: 07/27/21 17:30 Dose: 100 ml Documented by: Sodium Chloride (Sodium Chloride 0.9% 10 Ml Syringe) 10 ml FLUSH ONETIME ONE Stop: 07/27/21 16:53 Last Admin: 07/27/21 17:30 Dose: 10 ml Documented by: - Exam Quality Assessment: Supplemental Oxygen General: Alert, Oriented HEENT: Pupils Equal, Mucous Membr. Moist/[place] Neck: Supple Lungs: Normal Respiratory Effort, Crackles (Bibasilar) Cardiovascular: Regular Rate, Regular Rhythm GI/Abdominal Exam: Normal Bowel Sounds, Soft, Non-Tender, No Distention Extremities: Normal Inspection, No Pedal Edema, Normal Capillary Refill Psy/Mental Status: Alert, Normal Affect, Normal Mood - Patient Data Lab Results Last 24 hrs: Laboratory Results - last 24 hr 08/01/21 08/01/21 Range/Units 06:25 06:25 WBC 7.19 (4.23-9.07) K/mm3 RBC 4.88 (4.63-6.08) M/mm3 Hgb 14.4 (13.7-17.5) gm/dl Hct 43.4 (40.1-51.0) % MCV 88.9 (79.0-92.2) fl MCH 29.5 (25.7-32.2) pg MCHC 33.2 (32.2-35.5) g/dl RDW Std Deviation 46.6 H (35.1-43.9) fL Plt Count 261 (163-337) K/mm3 MPV 11.2 (9.4-12.3) fl Neut % (Auto) 81.4 H (34.0-67.9) % Lymph % (Auto) 11.3 L (21.8-53.1) % [place] % (Auto) 6.5 (5.3-12.2) % Eos % (Auto) 0.1 L (0.8-7.0) Baso % (Auto) 0.3 (0.1-1.2) % Neut # (Auto) 5.85 H (1.78-5.38) K/mm3 Lymph # (Auto) 0.81 L (1.32-3.57) K/mm3 [place] # (Auto) 0.47 (0.30-0.82) K/mm3 Eos # (Auto) 0.01 L (0.04-0.54) K/mm3 Baso # (Auto) 0.02 (0.01-0.08) K/mm3 Manual Slide Review Abnormal smear Sodium 138 (136-145) mEq/L Potassium 4.8 (3.5-5.1) mEq/L Chloride 105 (98-107) mEq/L Carbon Dioxide 23 (21-32) mEq/L Anion Gap 14.8 (5-15) BUN 19 H (7-18) mg/dL Creatinine 0.7 (0.7-1.3) mg/dL Est Cr Clr Drug Dosing 104.50 mL/min Estimated GFR (MDRD) > 60 (>60) mL/min BUN/Creatinine Ratio 27.1 H (14-18) Glucose 110 H (70-99) mg/dL Calcium 8.0 L (8.5-10.1) mg/dL Phosphorus 3.5 (2.6-4.7) mg/dL Magnesium 2.0 (1.8-2.4) mg/dL Total Bilirubin 0.7 (0.2-1.0) mg/dL AST 87 H (15-37) U/L ALT 98 H (16-63) U/L Alkaline Phosphatase 68 (46-116) U/L C-Reactive Protein 0.5 (<1.0) mg/dL Total Protein 6.0 L (6.4-8.2) g/dl Albumin 2.7 L (3.4-5.0) g/dl Globulin 3.3 gm/dL Albumin/Globulin Ratio 0.8 L (1-2) Result Diagrams: 08/01/21 06:25 08/01/21 06:25 Sepsis Event Note - Evaluation Sepsis Screening Result: No Definite Risk - Focused Exam Vital Signs: Vital Signs Temp Pulse Resp BP Pulse Ox Pulse Ox 08/01/21 14:00 91 L 08/01/21 09:47 90 L 08/01/21 08:00 88 L 08/01/21 04:33 98.1 F 63 18 128/82 89 L - Problem List & Annotations (1) Hypoxia SNOMED Code(s): 413838565 Code(s): R09.02 - HYPOXEMIA Status: Acute Current Visit: Yes (2) Pneumonia due to COVID-19 virus SNOMED Code(s): 052622025205850280 Code(s): U07.1 - COVID-19; J12.82 - PNEUMONIA DUE TO CORONAVIRUS DISEASE 2019 Status: Acute Current Visit: Yes - Problem List Review Problem List Initiated/Reviewed/Updated: Yes - Plan Plan:: 61-year-old male with COVID-19 pneumonia. 40+ pack year history. COVID-19 pneumonia Respiratory failure * Tobacco user, 40+ pack year history * Oxygenation in the 70s on presentation * Received first dose of dexamethasone in the emergency department * CT angiogram negative for pulmonary embolism but consistent with COVID-19 pneumonia * Oxygen requirement increased overnight. * High flow nasal cannula 55 L and 55% * WBC 3.77, platelets 221, creatinine decreased to 1.1, BUN 43, glucose 180, CRP 9.0, albumin decreased to 2.7 07/29/2021 Patient has had a marginal improvement in saturations with his high flow settings at 45 L and 60%. CRP has decreased to 4.7. Albumin 2.6. AST slightly elevated at 74. ALT is normal at 31 and alkaline phosphatase 68. Renal fun ction is good with a creatinine of 0.9, but he is having increasing BUN and today it is 48. Unknown significance. 07/30/2021 Patient continues with high flow nasal cannula. He states he is starting to feel better and his C-reactive protein has significantly decreased to 2.3. Unfortunately he continues on significant amount of support for oxygenation.AST has increased to 80, but ALT is still normal at 43. Albumin continues to decrease and today is 2.5. 07/31/2021 High flow nasal cannula at 45 and 60%. Continue to wean as tolerated. Remdesivir will be completed today and he will receive the fifth dose of dexamethasone. CRP is down to 1.1 and albumin is 2.6. AST has increased to 175 and ALT is 113. Both are still under the limits for remdesivir. 08/01/2021 He has finished his remdesivir and continues on dexamethasone. He is fairly stable on his high flow nasal cannula at 45 L and 60% FiO2. No significant change overnight. He did have some improvement in his AST and ALT down to 87 and 98 respectively. Creatinine has decreased to 0.9. Electrolytes are stable as well as CBC. Plan * Admit to medical floor on strict isolation * High flow nasal cannula to keep SPO2 between 88 and 94%. Continue to try to wean * Dexamethasone day * Remdesivir completed of * Received Actemra on 07/28/2021 * Offered nicotine patch, patient refused * Tessalon Perles for cough * RT, I-S, albuterol, duo nebs, and other Covid specific respiratory care * Follow CBC, CMP, mag, Phos, CRP. Periodic D-dimer * VTE prophylaxis with Lovenox * CODE STATUS: Full code Goal is to wean down to nasal cannula over the next 24 to 48 hours.
[2021-08-01] MEDS: Dexamethasone 4 MG Tab PO SCH (16:36)
[2021-08-02] MEDS ORDERED: oxyCODONE 5 MG Tab PO PRN (00:10)
[2021-08-02 06:16] VITALS: BP 113/51; PULSE 75
[2021-08-02] MEDS ORDERED: ALTEPLASE IV STA (07:01)
[2021-08-02] MEDS ORDERED: INFUSION IV STA (07:01)
--- NOTE | 2021-08-02 07:45 | CT ---
Head CT Technique: Multiple axial sections through the brain were obtained. Intravenous contrast was not utilized. Reconstructed coronal and sagittal images were obtained. Comparison: Prior head CT study of 11/30/09 and prior MRI brain of 04/27/11. Findings: Ventricles along with basal cisterns and sulci over the convexities are minimally prominent. No abnormal parenchymal densities are seen. No evidence of intracranial hemorrhage is seen. No midline shift or mass-effect is seen. Bone window settings were reviewed which show no acute calvarial abnormality. Visualized paranasal and mastoid sinuses are clear. Impression: 1. Slight generalized atrophy. 2. No acute intracranial abnormality is appreciated. Diagnostic code #2 I agree with preliminary report from [facility], finalized on 08/02/21, 7:00 AM CDT, code 1
--- NOTE | 2021-08-02 08:04 | PCM.DCSUM1 ---
Discharge Summary - Hospital Course HPI Initial Comments: 61-year-old male whose first started getting ill approximately 2 weeks ago. He states that he was working in his garden and started coughing. He initially had significant diarrhea that then led to shortness of breath, cough, and fatigue. Patient is not vaccinated against the Covid virus. When he presented to the emergency department he was found to be hypoxic Requiring high flow nasal cannula. Patient was given dexamethasone, stabilized, and transferred to the floor. Initial oxygen saturation was 77%. Patient was also found to be tachycardic on presentation to the emergency department which resolved with better oxygenation. CT angiogram of the chest was performed which did not demonstrate pulmonary embolism but did show diffuse interstitial changes consistent with Covid pneumonia. Patient states he stopped smoking 2 weeks ago when he started feeling ill. He does not want a nicotine patch. Assessment/Plan Comment:: 61-year-old male with COVID-19 pneumonia. 40+ pack year history. COVID-19 pneumonia Respiratory failure * Oxygenation in the 70s on presentation * High flow nasal cannula 50 L and 50% * WBC 6.8, D-dimer 0.94, BUN 40, creatinine 1.4, CRP 8.9 * CT angiogram negative for pulmonary embolism but consistent with COVID-19 pneumonia * Unvaccinated * Tobacco user, 40+ pack year history * Received first dose of dexamethasone in the emergency department Plan * Admit to medical floor on strict isolation * High flow nasal cannula to keep SPO2 between 88 and 94% * Continue dexamethasone 6 mg daily * Start remdesivir * Counseled the patient in regards to Actemra and gave him the EUA handout. Patient will review it overnight. * Offered nicotine patch, patient refused * Tessalon Perlnathaniel for cough * RT, I-S * Follow CBC, CMP, mag, Phos, CRP. Periodic D-dimer * VTE prophylaxis with Lovenox * CODE STATUS: Full code - Mortality Measure Prognosis:: Good Diagnosis: Stroke: No - Discharge Data Discharge Date: 08/02/21 Discharge Disposition: DC/Tfer to Acute Hospital 02 Condition: Serious - Referral to Home Health Primary Care Physician: PCP None - Discharge Diagnosis/Problem(s) (1) Hypoxia SNOMED Code(s): 160816713 ICD Code: R09.02 - HYPOXEMIA Status: Acute Current Visit: Yes (2) Pneumonia due to COVID-19 virus SNOMED Code(s): 615448139394126413 ICD Code: U07.1 - COVID-19; J12.82 - PNEUMONIA DUE TO CORONAVIRUS DISEASE 2019 Status: Acute Current Visit: Yes - Patient Summary/Data Hospital Course: 07/29/2021 Patient has had a marginal improvement in saturations with his high flow settings at 45 L and 60%. CRP has decreased to 4.7. Albumin 2.6. AST slightly elevated at 74. ALT is normal at 31 and alkaline phosphatase 68. Renal fu nction is good with a creatinine of 0.9, but he is having increasing BUN and today it is 48. Unknown significance. 07/30/2021 Patient continues with high flow nasal cannula. He states he is starting to feel better and his C-reactive protein has significantly decreased to 2.3. Unfortunately he continues on significant amount of support for oxygenation.AST has increased to 80, but ALT is still normal at 43. Albumin continues to decrease and today is 2.5. 07/31/2021 High flow nasal cannula at 45 and 60%. Continue to wean as tolerated. Remdesivir will be completed today and he will receive the fifth dose of dexamethasone. CRP is down to 1.1 and albumin is 2.6. AST has increased to 175 and ALT is 113. Both are still under the limits for remdesivir. 08/01/2021 He has finished his remdesivir and continues on dexamethasone. He is fairly stable on his high flow nasal cannula at 45 L and 60% FiO2. No significant change overnight. He did have some improvement in his AST and ALT down to 87 and 98 respectively. Creatinine has decreased to 0.9. Electrolytes are stable as well as CBC. 08/02/2021 Nursing reports that she walked in a little after of 500 hours and found the patient to be aphasic, left-sided neglect, and unable to move his left side. Stroke alert was called and I was called. CT of the brain was obtained which showed no acute findings and EKG was also obtained that showed sinus rhythm. Nurse states that the last known normal was after 0300 hrs. She believes it was around 0345 hrs. NIH stroke scale was 21. I spoke with Dr. Menchaca ER physician at [facility] in [place], Dr. Wang interventional radiology also at [facility] in [place], and Dr. Wild neurologist at the [facility] who all recommended doing TPA after fulfilling the checklist. Checklist for TPA was reviewed and patient fulfilled requirements for TPA. TPA was ordered and started. At that time he had some small recovery of some weakness in the left side and was able to speak clearly and give clear answers. TPA, alteplase was delayed slightly secondary to losing the IV right before administration, but still was within the 4-hour window. Arrangements for medical flight to [facility] in [place] to their emergency room was arranged. Unfortunately because of the weather we did have to get fixed wing aircraft which delayed transport only slightly. Patient's was updated on her 's condition. - Discharge Plan *PRESCRIPTION DRUG MONITORING PROGRAM REVIEWED*: Not Applicable *COPY OF PRESCRIPTION DRUG MONITORING REPORT IN PATIENT JEANNINE: Not Applicable Home Medications: Home Meds . [No Known Home Meds] 07/27/21 [History] Oxygen Therapy Mode: High Flow Nasal Cannula Patient Handouts: COVID-19, COVID-19 Vaccine Information, 10 Things You Can Do to Manage Your COVID-19 Symptoms at Home - CDC (05/05/2021), Sepsis, Diagnosis, Adult, Steps to Quit Smoking Referrals: Jennie Meek MD [Physician] - - Discharge Summary/Plan Comment DC Time >30 min.: Yes Total # of Minutes for Discharge Time: 60 minutes, 45 minutes of critical care at bedside for stroke. - General Info Date of Service: 08/02/21 Admission Dx/Problem (Free Text: Admission Diagnosis/Problem Admission Diagnosis/Problem Hypoxia Subjective Update: Please see discharge summary Functional Status: Reports: Other (Complains of some pain. Unable to voice source, prior to TPA) - Patient Data Vitals - Most Recent: Last Vital Signs Temp 97.5 F 08/02/21 05:12 Pulse 75 08/02/21 05:12 Resp 23 H 08/02/21 05:12 BP 113/51 L 08/02/21 05:12 Pulse Ox 90 L 08/02/21 05:55 Weight - Most Recent: 166 lb 11.2 oz I&O - Last 24 hours: Intake & Output 08/01/21 08/02/21 08/02/21 22:59 06:59 14:59 Intake Total 1040 0 Output Total 600 500 Balance 440 -500 Lab Results - Last 24 hrs: Laboratory Results - last 24 hr 08/02/21 08/02/21 Range/Units 05:29 07:30 WBC 9.75 H (4.23-9.07) K/mm3 RBC 4.98 (4.63-6.08) M/mm3 Hgb 14.8 (13.7-17.5) gm/dl Hct 44.0 (40.1-51.0) % MCV 88.4 (79.0-92.2) fl MCH 29.7 (25.7-32.2) pg MCHC 33.6 (32.2-35.5) g/dl RDW Std Deviation 45.9 H (35.1-43.9) fL Plt Count 203 (163-337) K/mm3 MPV 11.2 (9.4-12.3) fl Neut % (Auto) 85.1 H (34.0-67.9) % Lymph % (Auto) 8.6 L (21.8-53.1) % [place] % (Auto) 5.6 (5.3-12.2) % Eos % (Auto) 0.4 L (0.8-7.0) Baso % (Auto) 0.2 (0.1-1.2) % Neut # (Auto) 8.29 H (1.78-5.38) K/mm3 Lymph # (Auto) 0.84 L (1.32-3.57) K/mm3 [place] # (Auto) 0.55 (0.30-0.82) K/mm3 Eos # (Auto) 0.04 (0.04-0.54) K/mm3 Baso # (Auto) 0.02 (0.01-0.08) K/mm3 POC Glucose 115 H (70-99) mg/dL Med Orders - Current: Current Medications Acetaminophen (Acetaminophen 325 Mg Tab) 650 mg PO Q4H PRN PRN Reason: Pain (Mild 1-3)/fever Albuterol (Albuterol 6.7 Gm Inhaler) 0 gm INH Q2H PRN PRN Reason: Shortness of Breath Last Admin: 08/01/21 21:10 Dose: 2 puff Documented by: Albuterol/Ipratropium (Albuterol/Ipratropium 3.0-0.5 Mg/3 Ml Neb Soln) 3 ml NEB Q4H PRN PRN Reason: Shortness Of Breath/wheezing Benzonatate (Benzonatate 100 Mg Cap) 200 mg PO Q8H PRN PRN Reason: Cough Dexamethasone (Dexamethasone 4 Mg Tab) 6 mg PO DAILY@1700 BRIDGER Stop: 08/05/21 17:01 Last Admin: 08/01/21 16:36 Dose: 6 mg Documented by: Guaifenesin (Guaifenesin 600 Mg Tab.Er) 600 mg PO TID BRIDGER Last Admin: 08/01/21 21:08 Dose: 600 mg Documented by: Ondansetron HCl (Ondansetron 4 Mg/2 Ml Sdv) 4 mg IV Q6H PRN PRN Reason: Nausea/Vomiting Polyethylene Glycol (Polyethylene Glycol 3350 Powder 17 Gm Packet) 17 gm PO DAILY PRN PRN Reason: Constipation Last Admin: 07/29/21 16:06 Dose: 17 gm Documented by: Discontinued Medications Alteplase, Recombinant (Alteplase 100 Mg Vial) 6.8 mg 0.09 mg/kg (6.8 mg) IV BOLUS STA Stop: 08/02/21 07:01 Last Admin: 08/02/21 07:18 Dose: 6.8 mg Documented by: Alteplase, Recombinant (Alteplase 100 Mg Vial) Confirm Administered Dose 100 mg .ROUTE .STK-MED ONE Stop: 08/02/21 07:03 Dexamethasone (Dexamethasone 10 Mg/Ml Sdv) 6 mg IVPUSH ONETIME ONE Stop: 07/27/21 16:09 Last Admin: 07/27/21 16:20 Dose: 6 mg Documented by: Enoxaparin Sodium (Enoxaparin 40 Mg/0.4 Ml Syringe) 40 mg SUBCUT DAILY [facility] Last Admin: 08/01/21 10:35 Dose: 40 mg Documented by: Lactated Ringer's (Ringers, Lactated) 500 mls @ 1,000 mls/hr IV .BOLUS ONE Stop: 07/27/21 17:19 Last Admin: 07/27/21 17:19 Dose: 1,000 mls/hr Documented by: Sodium Chloride (Normal Saline) 100 mls @ 60 mls/hr IV ASDIRECTED [facility] Remdesivir 200 mg/ Sodium (Chloride) 250 mls @ 250 mls/hr IV ONETIME ONE Stop: 07/27/21 20:59 Last Admin: 07/27/21 22:51 Dose: 250 mls/hr Documented by: Remdesivir 100 mg/ Sodium (Chloride) 100 mls @ 100 mls/hr IV Q24H BRIDGER Stop: 07/31/21 20:59 Last Admin: 07/31/21 21:00 Dose: 100 mls/hr Documented by: Tocilizumab 200 mg/Tocilizumab 25 mg/ Tocilizumab 400 mg/ Sodium Chloride 100 mls @ 100 mls/hr IV ONETIME ONE Stop: 07/28/21 11:59 Last Admin: 07/28/21 11:35 Dose: 100 mls/hr Documented by: Alteplase, Recombinant 61.25 (mg/ Alteplase, Recombinant) 0 mls @ 0 mls/hr IV ASDIRECTED STA Stop: 08/02/21 07:02 Influenza Virus Vaccine (Pharmacy To Dose - Influenza Vaccine) 1 each IM ONETIME ONE Stop: 07/28/21 00:46 Influenza Virus Vaccine (Flu Vacc [id number] 36mos Up/Pf 60 Mcg/0.5 Ml Syringe) 60 mcg IM .ONCE ONE Stop: 07/28/21 09:46 Iopamidol (Iopamidol 755 Mg/Ml 100 Ml Bottle) 100 ml IVPUSH ONETIME ONE Stop: 07/27/21 16:53 Last Admin: 07/27/21 17:30 Dose: 100 ml Documented by: Sodium Chloride (Sodium Chloride 0.9% 10 Ml Syringe) 10 ml FLUSH ONETIME ONE Stop: 07/27/21 16:53 Last Admin: 07/27/21 17:30 Dose: 10 ml Documented by: - Exam Quality Assessment: Reports: Supplemental Oxygen General: Reports: Alert HEENT: Reports: Pupils Equal Neck: Reports: Supple Lungs: Reports: Normal Respiratory Effort (Mildly increased respiratory rate), Crackles (Bibasilar) Cardiovascular: Reports: Regular Rate, Regular Rhythm GI/Abdominal Exam: Normal Bowel Sounds, Soft, Non-Tender, No Distention Extremities: Normal Inspection, Non-Tender, No Pedal Edema, Normal Capillary Refill Neurological: Reports: Other (Memory is intact, Orientated to person, place, and time. NIH stroke scale of 21). Denies: Normal Speech (Dysarthria due to left sided facial paralysis), Normal Tone (decreased in left upper and lower extremities), Strength Equal Bilateral (Left sided weakness. 1+ strength upper extreimty. 2+ strenth lower extremity), Reflexes Equal Bilateral (Positive Babinski on left), Sensation Intact (diminished to absent on left face, upper and lower extremities), Cranial Nerves Intact (PERRL CN II intact, Eye movement diminished towards left. Left CN V sensation decreased. Left CN VII paralysis, CNXII tongue deviation to left.) Psy/Mental Status: Reports: Alert
--- NOTE | 2021-08-04 22:22 | PCM.EKG ---
#1 Interpretation EKG Date: 08/02/21 Time: 05:50 Rhythm: NSR Rate (Beats/Min): 82 [place]: Normal P-Wave: Present QRS: Normal ST-T: Normal QT: Normal EKG Interpretation Comments: Sinus rhythm with a ventricular rate of 82 bpm. APCs noted. Artifact make interpretation difficult.
== END 2021-08-02 09:47 | DRG 137 ==
LOC: JD.ED 15:27 → JD.MS 18:12 → UNDOADMIN 18:12 → JD.MS 18:45
PROVIDERS: ADMIT Family Medicine; ATTEND Family Medicine
PROC: 8E0ZXY6 Isolation (ICD-10-PCS; principal; 2021-07-27)
PROC: XW033E5 Introduction of Remdesivir Anti-infective into Peripheral Vein, Percutaneous Approach, New Technology Group 5 (ICD-10-PCS; 2021-07-27)
PROC: 3E0333Z Introduction of Anti-inflammatory into Peripheral Vein, Percutaneous Approach (ICD-10-PCS; 2021-07-27)
PROC: 5A0955A Assistance with Respiratory Ventilation, Greater than 96 Consecutive Hours, High Flow/Velocity Cannula (ICD-10-PCS; 2021-07-27)
PROC: 3E0DX3Z Introduction of Anti-inflammatory into Mouth and Pharynx, External Approach (ICD-10-PCS; 2021-07-28)
PROC: XW033H5 Introduction of Tocilizumab into Peripheral Vein, Percutaneous Approach, New Technology Group 5 (ICD-10-PCS; 2021-07-28)
PROC: 3E03317 Introduction of Other Thrombolytic into Peripheral Vein, Percutaneous Approach (ICD-10-PCS; 2021-08-02)
DX: U07.1 COVID-19 (principal); J12.82 Pneumonia due to coronavirus disease 2019; J96.01 Acute respiratory failure with hypoxia; F17.210 Nicotine dependence, cigarettes, uncomplicated; J96.91 Respiratory failure, unspecified with hypoxia; I25.2 Old myocardial infarction
CPT/HCPCS: 36415; 70450; 70450-26; 71045; 71045-26; 71275; 71275-26; 80053; 82947; 83735; 84100; 84484; 85025; 85379; 86140; 93005; 94640; 94762; 96374; 99285-25; A9270-GY; J1100; J1650; J2997; J7050; J7120; J8540; Q0249; Q9967; U0002

== ENCOUNTER 2023-09-11 12:29 | Inpatient (IN) | payer BC, MEDICARE ==
[2023-09-11] MEDS ORDERED: Sodium Chloride 0.9% 10 ML Syringe FLUSH PRN (12:44)
[2023-09-11 13:32] LABS: BASOPHILS PERCENT AUTO 0.7 % (0.0-1.0); EOSINOPHILS PERCENT AUTO 0.7 % (0.0-6.0); HEMATOCRIT 30.5 % (42.0-52.0); HEMOGLOBIN 10.8 gm/dl (14.0-18.0); IMMATURE GRAN ABSOLUTE AUTO 0.01 K/mm3 (0.00-0.05); IMMATURE GRAN PERCENT AUTO 0.2 % (0.0-0.4); LYMPHOCYTES ABSOLUTE AUTO 1.2 K/mm3 (1.0-4.8); LYMPHOCYTES PERCENT AUTO 28.8 % (24.0-44.0); MEAN CORPUSCULAR HEMOGLOBIN 37.4 pg (28.0-32.0); MEAN CORPUSCULAR HGB CONC 35.4 g/dl (32.0-36.0); MEAN CORPUSCULAR VOLUME 105.5 fl (83.0-99.0); MEAN PLATELET VOLUME 11.4 fl (9.4-12.4); MONOCYTES ABSOLUTE AUTO 0.2 K/mm3 (0.0-0.8); MONOCYTES PERCENT AUTO 5.6 % (0.0-8.0); NEUTROPHILS ABSOLUTE AUTO 2.6 K/mm3 (1.8-7.7); PLATELET COUNT,PLT 75 K/mm3 (150-400); RED BLOOD CELL COUNT 2.89 M/mm3 (4.52-5.90); WHITE BLOOD CELL COUNT,WBC 4.13 K/mm3 (3.9-11.3)
[2023-09-11 14:08] LABS: A/G RATIO 0.7 (1-2); ALANINE AMINOTRANSFERASE,ALT 38 U/L (16-63); ALBUMIN 2.4 g/dl (3.4-5.0); ALKALINE PHOSPHATASE 138 U/L (46-116); ANION GAP 12.3 (5-15); ASPARTATE AMNIOTRANSFERASE,AST 241 U/L (15-37); BILIRUBIN TOTAL 0.7 mg/dL (0.2-1.0); BLOOD UREA NITROGEN,BUN 3 mg/dL (7-18); CALCIUM 7.9 mg/dL (8.5-10.1); CARBON DIOXIDE,CO2 27 mEq/L (21-32); CHLORIDE,CL 98 mEq/L (98-107); CREATININE 0.6 mg/dL (0.7-1.3); ESTIMATED GFR 107 mL/min (>60); ETHANOL BLOOD MEDICAL 0.18 gm% (0.00); GLUCOSE RANDOM 93 mg/dL (70-99); MAGNESIUM 1.4 mg/dL (1.8-2.4); POTASSIUM,K 3.3 mEq/L (3.5-5.1); SODIUM,NA 134 mEq/L (136-145); TROPONIN I HIGH SENSITIVITY 12 pg/mL (<=76)
[2023-09-11] MEDS ORDERED: Magnesium Sulfate/Water 2 GM in Premix Bag 1 BAG IV ONE (14:12)
[2023-09-11] MEDS ORDERED: Calcium Carbonate 500 MG Tab.Chew PO SCH ×2 (14:15→15:00)
[2023-09-11] MEDS ORDERED: Thiamine 200 MG/2 ML MDV IVPUSH SCH ×2 (14:15→15:00)
[2023-09-11 14:16] LABS: SLIDE REVIEW ABNORMAL SMEAR
[2023-09-11] MEDS: Multivitamin Tab PO SCH (15:01)
[2023-09-11] MEDS ORDERED: Digoxin 250 MCG Tab PO ONE (15:23)
[2023-09-11] MEDS ORDERED: Potassium Chloride 20 MEQ Tab.ER PO ONE (15:23)
[2023-09-11] MEDS ORDERED: LORazepam 2 MG/ML SDV IVPUSH PRN (16:00)
[2023-09-11] MEDS ORDERED: Ondansetron 4 MG/2 ML SDV IV PRN (18:35)
[2023-09-11 18:58] LABS: APPEARANCE,URINE CLEAR (Clear); BILIRUBIN,URINE NEGATIVE (Negative); COLOR,URINE YELLOW (Yellow); GLUCOSE,URINE NEGATIVE (Negative); KETONES,URINE NEGATIVE (Negative); LEUKOCYTE ESTERASE,URINE NEGATIVE (Negative); NITRITE,URINE NEGATIVE (Negative); OCCULT BLOOD,URINE NEGATIVE (Negative); PROTEIN,URINE NEGATIVE (Negative)
[2023-09-11 19:18] LABS: BARBITURATE SCREEN,URINE NEGATIVE (CUTOFF=200); BENZODIAZEPINES SCREEN,URINE NEGATIVE (CUTOFF=150); BUPRENORPHINE SCREEN,URINE NEGATIVE (CUTOFF=10); METHADONE SCREEN, URINE NEGATIVE (CUT0FF=200); METHAMPHETAMINES SCREEN, URINE NEGATIVE (CUTOFF=500); OXYCODONE SCREEN,URINE NEGATIVE (CUT0FF=100); THC SCREEN,URINE 20 NG/ML NEGATIVE (CUTOFF=50)
[2023-09-11 19:31] LABS: AMPHETAMINES SCREEN, URINE NEGATIVE (CUTOFF=500)
[2023-09-11 19:48] LABS: RBC,URINE 0-5 /hpf (0-5)
[2023-09-11 19:49] LABS: BACTERIA,URINE RARE /hpf (FEW); EPITHELIAL CELLS,URINE 0-5 /hpf (0-5); MUCUS,URINE NOT SEEN /hpf (FEW); WBC,URINE 0-5 /hpf (0-5)
[2023-09-11] MEDS: Metoprolol Tartrate 25 MG Tab PO SCH (21:43)
[2023-09-11] MEDS: Pantoprazole 40 MG Vial IVPUSH SCH (21:44)
[2023-09-12] MEDS: Acetaminophen 325 MG Tab PO PRN ×4 (02:59→21:31)
[2023-09-12 05:53] LABS: HEMATOCRIT 26.8 % (42.0-52.0); HEMOGLOBIN 9.6 gm/dl (14.0-18.0); MEAN CORPUSCULAR HEMOGLOBIN 36.1 pg (28.0-32.0); MEAN CORPUSCULAR HGB CONC 35.8 g/dl (32.0-36.0); MEAN CORPUSCULAR VOLUME 100.8 fl (83.0-99.0); MEAN PLATELET VOLUME 12.3 fl (9.4-12.4); PLATELET COUNT,PLT 71 K/mm3 (150-400); RED BLOOD CELL COUNT 2.66 M/mm3 (4.52-5.90); WHITE BLOOD CELL COUNT,WBC 3.09 K/mm3 (3.9-11.3)
[2023-09-12 06:01] LABS: A/G RATIO 0.6 (1-2); ALBUMIN 1.9 g/dl (3.4-5.0); ANION GAP 11.4 (5-15); BILIRUBIN TOTAL 0.7 mg/dL (0.2-1.0); CALCIUM 7.3 mg/dL (8.5-10.1); CREATININE 0.5 mg/dL (0.7-1.3); EST CRCL DRUG DOSING (CG) 142.5 mL/min; MAGNESIUM 1.6 mg/dL (1.8-2.4); POTASSIUM,K 3.4 mEq/L (3.5-5.1)
[2023-09-12] MEDS ORDERED: Magnesium Sulfate/Water 4 GM in Premix Bag 1 BAG IV ONE (06:22)
[2023-09-12] MEDS ORDERED: Potassium Chloride 20 MEQ Tab.ER PO ONE (06:23)
[2023-09-12] MEDS ORDERED: NS + KCl 20mEq/L 1,000 ML IV SCH (06:45)
[2023-09-12] MEDS: Metoprolol Tartrate 25 MG Tab PO SCH ×2 (08:28→20:22)
[2023-09-12] MEDS: Multivitamin Tab PO SCH (08:28)
[2023-09-12] MEDS: Apixaban 5 MG Tab PO SCH ×2 (08:28→20:22)
[2023-09-12] MEDS: Pantoprazole 40 MG Vial IVPUSH SCH ×2 (08:30→20:23)
[2023-09-12] MEDS: Folic Acid 1 MG Tab PO SCH (08:33)
[2023-09-12] MEDS ORDERED: Thiamine 200 MG/2 ML MDV IVPUSH SCH (09:00)
[2023-09-12] MEDS: Rosuvastatin 10 MG Tab PO SCH (14:20)
[2023-09-12] MEDS: Nicotine 14 MG/24 Hr Patch TRDERM SCH (17:13)
[2023-09-12] MEDS: Tamsulosin 0.4 MG Cap.ER PO SCH (20:22)
[2023-09-13 05:24] LABS: HEMATOCRIT 25.9 % (42.0-52.0); HEMOGLOBIN 9.5 gm/dl (14.0-18.0); MEAN CORPUSCULAR HEMOGLOBIN 36.7 pg (28.0-32.0); MEAN CORPUSCULAR HGB CONC 36.7 g/dl (32.0-36.0); MEAN PLATELET VOLUME 12.3 fl (9.4-12.4); PLATELET COUNT,PLT 64 K/mm3 (150-400); RED BLOOD CELL COUNT 2.59 M/mm3 (4.52-5.90); WHITE BLOOD CELL COUNT,WBC 2.88 K/mm3 (3.9-11.3)
[2023-09-13 05:34] LABS: A/G RATIO 0.6 (1-2); ALBUMIN 1.7 g/dl (3.4-5.0); ANION GAP 10.6 (5-15); CALCIUM 7.2 mg/dL (8.5-10.1); CREATININE 0.5 mg/dL (0.7-1.3); EST CRCL DRUG DOSING (CG) 142.5 mL/min; MAGNESIUM 1.6 mg/dL (1.8-2.4); POTASSIUM,K 3.6 mEq/L (3.5-5.1); PROTEIN TOTAL,TP 4.7 g/dl (6.4-8.2)
[2023-09-13] MEDS ORDERED: Magnesium Sulfate/Water 2 GM in Premix Bag 1 BAG IV ONE (06:18)
[2023-09-13] MEDS: Nicotine 14 MG/24 Hr Patch TRDERM SCH (07:59)
[2023-09-13] MEDS ORDERED: Furosemide 20 MG/2 ML VIAL IVPUSH ONE (08:00)
[2023-09-13] MEDS: Apixaban 5 MG Tab PO SCH ×2 (08:04→20:50)
[2023-09-13] MEDS: Folic Acid 1 MG Tab PO SCH (08:04)
[2023-09-13] MEDS: Rosuvastatin 10 MG Tab PO SCH (08:05)
[2023-09-13] MEDS: Metoprolol Tartrate 25 MG Tab PO SCH ×2 (08:05→20:50)
[2023-09-13] MEDS: Pantoprazole 40 MG Tab.CR PO SCH (08:05)
[2023-09-13] MEDS: Multivitamin Tab PO SCH (08:05)
[2023-09-13] MEDS: Albumin 25% 12.5 GM in Premix Bag 1 BAG IV SCH ×2 (10:30→11:28)
[2023-09-13] MEDS ORDERED: Sodium Chloride 0.9% 500 ML IV SCH (10:30)
[2023-09-13] MEDS: Carboxymethylcellulose Sodium 1% Ophth Gel 15 ML Bottle EYEBOTH PRN ×2 (14:42→18:20)
[2023-09-13] MEDS: Acetaminophen 325 MG Tab PO PRN ×3 (14:42→23:55)
[2023-09-13] MEDS: LORazepam 2 MG/ML SDV IVPUSH PRN ×2 (18:24→23:36)
[2023-09-13] MEDS: Tamsulosin 0.4 MG Cap.ER PO SCH (20:50)
[2023-09-13] MEDS: Thiamine 100 MG Tab PO SCH (20:50)
[2023-09-14] MEDS: LORazepam 2 MG/ML SDV IVPUSH PRN ×4 (00:47→08:47)
[2023-09-14 05:45] LABS: HEMOGLOBIN 9.2 gm/dl (14.0-18.0); MEAN CORPUSCULAR HEMOGLOBIN 36.8 pg (28.0-32.0); MEAN CORPUSCULAR HGB CONC 35.4 g/dl (32.0-36.0); MEAN PLATELET VOLUME 12.1 fl (9.4-12.4); PLATELET COUNT,PLT 75 K/mm3 (150-400); WHITE BLOOD CELL COUNT,WBC 2.69 K/mm3 (3.9-11.3)
[2023-09-14 06:10] LABS: A/G RATIO 0.7 (1-2); ALBUMIN 2.1 g/dl (3.4-5.0); ANION GAP 9.3 (5-15); BILIRUBIN TOTAL 1.1 mg/dL (0.2-1.0); CALCIUM 7.5 mg/dL (8.5-10.1); CREATININE 0.5 mg/dL (0.7-1.3); EST CRCL DRUG DOSING (CG) 142.5 mL/min; MAGNESIUM 1.7 mg/dL (1.8-2.4); POTASSIUM,K 3.3 mEq/L (3.5-5.1); PROTEIN TOTAL,TP 5.3 g/dl (6.4-8.2)
[2023-09-14] MEDS ORDERED: Magnesium Sulfate/Water 2 GM in Premix Bag 1 BAG IV ONE (06:38)
[2023-09-14] MEDS: Metoprolol Tartrate 25 MG Tab PO SCH (08:27)
[2023-09-14] MEDS: Nicotine 14 MG/24 Hr Patch TRDERM SCH (08:28)
[2023-09-14] MEDS: Multivitamin Tab PO SCH (08:28)
[2023-09-14] MEDS: Rosuvastatin 10 MG Tab PO SCH (08:28)
[2023-09-14] MEDS: Pantoprazole 40 MG Tab.CR PO SCH (08:29)
[2023-09-14] MEDS: Apixaban 5 MG Tab PO SCH ×2 (08:29→22:14)
[2023-09-14] MEDS: Folic Acid 1 MG Tab PO SCH (08:29)
[2023-09-14] MEDS ORDERED: Potassium Chloride 20 MEQ Tab.ER PO SCH (09:00)
[2023-09-14] MEDS: Tamsulosin 0.4 MG Cap.ER PO SCH (22:14)
[2023-09-14] MEDS: Thiamine 100 MG Tab PO SCH (22:15)
[2023-09-15 05:53] LABS: ALBUMIN 2.3 g/dl (3.4-5.0); CALCIUM 7.7 mg/dL (8.5-10.1); CREATININE 0.5 mg/dL (0.7-1.3); EST CRCL DRUG DOSING (CG) 142.5 mL/min; PROTEIN TOTAL,TP 5.6 g/dl (6.4-8.2)
[2023-09-15 05:54] LABS: A/G RATIO 0.7 (1-2); BILIRUBIN TOTAL 1.3 mg/dL (0.2-1.0); MAGNESIUM 1.8 mg/dL (1.8-2.4)
[2023-09-15] MEDS: Nicotine 14 MG/24 Hr Patch TRDERM SCH (08:52)
[2023-09-15] MEDS: Pantoprazole 40 MG Tab.CR PO SCH (08:54)
[2023-09-15] MEDS: Multivitamin Tab PO SCH (08:54)
[2023-09-15] MEDS: Rosuvastatin 10 MG Tab PO SCH (08:54)
[2023-09-15] MEDS: Apixaban 5 MG Tab PO SCH ×2 (08:54→20:42)
[2023-09-15] MEDS: Folic Acid 1 MG Tab PO SCH (08:54)
[2023-09-15] MEDS: Metoprolol Tartrate 25 MG Tab PO SCH ×2 (08:58→20:43)
[2023-09-15] MEDS: Tamsulosin 0.4 MG Cap.ER PO SCH (20:42)
[2023-09-15] MEDS: Thiamine 100 MG Tab PO SCH (20:43)
[2023-09-16] MEDS: Acetaminophen 325 MG Tab PO PRN ×2 (02:41→08:52)
[2023-09-16 05:58] LABS: HEMATOCRIT 28.1 % (42.0-52.0); HEMOGLOBIN 10.1 gm/dl (14.0-18.0); MEAN CORPUSCULAR HEMOGLOBIN 37.1 pg (28.0-32.0); MEAN CORPUSCULAR HGB CONC 35.9 g/dl (32.0-36.0); MEAN CORPUSCULAR VOLUME 103.3 fl (83.0-99.0); MEAN PLATELET VOLUME 11.3 fl (9.4-12.4); RED BLOOD CELL COUNT 2.72 M/mm3 (4.52-5.90); WHITE BLOOD CELL COUNT,WBC 3.51 K/mm3 (3.9-11.3)
[2023-09-16 06:03] LABS: PLATELET COUNT,PLT 162 K/mm3 (150-400)
[2023-09-16 06:25] LABS: A/G RATIO 0.7 (1-2); ALBUMIN 2.2 g/dl (3.4-5.0); ANION GAP 13.7 (5-15); BILIRUBIN TOTAL 1.4 mg/dL (0.2-1.0); CALCIUM 7.5 mg/dL (8.5-10.1); CREATININE 0.5 mg/dL (0.7-1.3); EST CRCL DRUG DOSING (CG) 132.58 mL/min; MAGNESIUM 1.5 mg/dL (1.8-2.4); POTASSIUM,K 3.7 mEq/L (3.5-5.1); PROTEIN TOTAL,TP 5.3 g/dl (6.4-8.2)
[2023-09-16] MEDS ORDERED: Magnesium Sulfate/Water 2 GM in Premix Bag 1 BAG IV ONE (06:29)
[2023-09-16] MEDS ORDERED: NS + KCl 20mEq/L 1,000 ML IV SCH (06:30)
[2023-09-16] MEDS: Folic Acid 1 MG Tab PO SCH (08:50)
[2023-09-16] MEDS: Rosuvastatin 10 MG Tab PO SCH (08:50)
[2023-09-16] MEDS: Pantoprazole 40 MG Tab.CR PO SCH (08:51)
[2023-09-16] MEDS: Multivitamin Tab PO SCH (08:51)
[2023-09-16] MEDS: Magnesium Oxide 400 MG Tab PO SCH (08:51)
[2023-09-16] MEDS: Metoprolol Tartrate 25 MG Tab PO SCH ×2 (08:51→20:03)
[2023-09-16] MEDS: Apixaban 5 MG Tab PO SCH ×2 (08:52→20:03)
[2023-09-16] MEDS: Nicotine 14 MG/24 Hr Patch TRDERM SCH (08:54)
[2023-09-16] MEDS ORDERED: Finasteride 5 MG Tab PO SCH (12:00)
[2023-09-16] MEDS: Finasteride 5 MG Tab PO SCH (14:43)
[2023-09-16] MEDS: Tamsulosin 0.4 MG Cap.ER PO SCH (20:03)
[2023-09-16] MEDS: Thiamine 100 MG Tab PO SCH (20:03)
[2023-09-17 06:05] LABS: A/G RATIO 0.6 (1-2); ALBUMIN 2.3 g/dl (3.4-5.0); ANION GAP 9.7 (5-15); BILIRUBIN TOTAL 1.1 mg/dL (0.2-1.0); CALCIUM 7.8 mg/dL (8.5-10.1); CREATININE 0.6 mg/dL (0.7-1.3); EST CRCL DRUG DOSING (CG) 112.61 mL/min; MAGNESIUM 1.6 mg/dL (1.8-2.4); POTASSIUM,K 3.7 mEq/L (3.5-5.1); PROTEIN TOTAL,TP 6.3 g/dl (6.4-8.2)
[2023-09-17 06:14] LABS: HEMATOCRIT 29.2 % (42.0-52.0); HEMOGLOBIN 10.3 gm/dl (14.0-18.0); MEAN CORPUSCULAR HEMOGLOBIN 35.8 pg (28.0-32.0); MEAN CORPUSCULAR HGB CONC 35.3 g/dl (32.0-36.0); MEAN CORPUSCULAR VOLUME 101.4 fl (83.0-99.0); MEAN PLATELET VOLUME 11.4 fl (9.4-12.4); PLATELET COUNT,PLT 215 K/mm3 (150-400); RED BLOOD CELL COUNT 2.88 M/mm3 (4.52-5.90)
[2023-09-17] MEDS: Nicotine 14 MG/24 Hr Patch TRDERM SCH (08:21)
[2023-09-17] MEDS: Finasteride 5 MG Tab PO SCH (08:22)
[2023-09-17] MEDS: Metoprolol Tartrate 25 MG Tab PO SCH ×2 (08:22→21:03)
[2023-09-17] MEDS: Folic Acid 1 MG Tab PO SCH (08:22)
[2023-09-17] MEDS: Rosuvastatin 10 MG Tab PO SCH (08:22)
[2023-09-17] MEDS: Apixaban 5 MG Tab PO SCH ×2 (08:23→21:03)
[2023-09-17] MEDS: Pantoprazole 40 MG Tab.CR PO SCH (08:23)
[2023-09-17] MEDS: Multivitamin Tab PO SCH (08:23)
[2023-09-17] MEDS: Magnesium Oxide 400 MG Tab PO SCH (08:23)
[2023-09-17] MEDS: Acetaminophen 325 MG Tab PO PRN (08:23)
[2023-09-17] MEDS: Tamsulosin 0.4 MG Cap.ER PO SCH (21:03)
[2023-09-17] MEDS: Thiamine 100 MG Tab PO SCH (21:03)
[2023-09-18] MEDS: Apixaban 5 MG Tab PO SCH (08:37)
[2023-09-18] MEDS: Finasteride 5 MG Tab PO SCH (08:37)
[2023-09-18] MEDS: Metoprolol Tartrate 25 MG Tab PO SCH (08:37)
[2023-09-18] MEDS: Acetaminophen 325 MG Tab PO PRN (08:38)
[2023-09-18] MEDS: Magnesium Oxide 400 MG Tab PO SCH (08:38)
[2023-09-18] MEDS: Nicotine 14 MG/24 Hr Patch TRDERM SCH (08:38)
[2023-09-18] MEDS: Folic Acid 1 MG Tab PO SCH (08:38)
[2023-09-18] MEDS: Multivitamin Tab PO SCH (08:38)
[2023-09-18] MEDS: Pantoprazole 40 MG Tab.CR PO SCH (08:38)
[2023-09-18] MEDS: Rosuvastatin 10 MG Tab PO SCH (08:38)
[2023-09-18 10:50] VITALS: BP 97/58; PULSE 58
== END 2023-09-18 10:26 | DRG 309 ==
LOC: JD.ED 12:29 → JD.ICU 17:47 → JD.MS 09-15 20:35
PROVIDERS: ADMIT Internal Medicine; ATTEND Internal Medicine
DX: I48.91 Unspecified atrial fibrillation (principal); E87.1 Hypo-osmolality and hyponatremia; R60.0 Localized edema; F10.239 Alcohol dependence with withdrawal, unspecified; I69.354 Hemiplegia and hemiparesis following cerebral infarction affecting left non-dominant side; I95.9 Hypotension, unspecified; Z66 Do not resuscitate; D69.6 Thrombocytopenia, unspecified; D63.8 Anemia in other chronic diseases classified elsewhere; E87.6 Hypokalemia; K70.10 Alcoholic hepatitis without ascites; F10.220 Alcohol dependence with intoxication, uncomplicated; E83.42 Hypomagnesemia; F17.210 Nicotine dependence, cigarettes, uncomplicated; I25.2 Old myocardial infarction; Z87.01 Personal history of pneumonia (recurrent); Z86.16 Personal history of COVID-19; Z98.890 Other specified postprocedural states; Z79.899 Other long term (current) drug therapy
CPT/HCPCS: 36415; 71046; 80053; 80307; 83735; 83880; 84484; 85025; 93005; 96365; 96366; 96375; 99285; A9270 ×4; J3411; J3475; J3490; 80306; 81001; 82728; 83540; 85027; 93010; 93307; 97110-GP; 97161-GP; 99284; C9113; J0282; J1940; J2060; J3480; J7040; P9047